=== PATIENT | male | born 1940 | race Caucasian/White ===

== ENCOUNTER 2017-05-02 14:42 | Outpatient (CLI) | payer MEDICARE, MEDICAID, SELFPAY ==
[2017-05-02 14:48] LABS: Microscopic, Urine URINE MICROSCOPIC (MICROSCOPIC)
[2017-05-02 15:06] LABS: Anion Gap 7.7 mEq/L (5-15); Blood Urea Nitrogen 25 mg/dL (7-18); Carbon Dioxide 33 mmol/L (21.0-32.0); Chloride 104 mmol/L (98-107); Creatinine,Serum 1.36 mg/dL (0.70-1.30); Estimated Glomerular Filt Rate 51 ml/min (>60); GFR (African American) 62 ML/MIN (>60); Glucose 144 mg/dL (74-106); Potassium 4.7 mmoL/L (3.5-5.1); Sodium 140 mmol/L (136-145)
[2017-05-02 15:37] LABS: Appearance,Urine CLEAR (Clear); Bilirubin,Urine Negative (Negative); Blood, Urine Negative (Negative); Color,Urine YELLOW (Yellow); Glucose,Urine (UA) Negative (Negative); Ketones,Urine Negative (Negative); Leukocyte Esterase,Urine Negative (Negative); Nitrate,Urine Negative (Negative); Protein,Urine Negative (Negative); Urobilinogen,Urine 0.2 EU/dl (0.2)
[2017-05-02 15:47] LABS: Bacteria,Urine Trace /lpf; RBC,Urine Occasional #/hpf (0-3); WBC,Urine Occasional #/hpf (0-3)
== END 2017-05-02 16:05 | disposition home or self-care (01) ==
LOC: LAB 14:52 → INF 15:34
PROVIDERS: PCP Internal Medicine; Visit Provider Internal Medicine
DX: N18.3 Chronic kidney disease, stage 3 (moderate) (principal); R33.9 Retention of urine, unspecified
CPT/HCPCS: 36415; 80048; 81001; G0463

== ENCOUNTER 2017-05-03 07:21 | Emergency (ER) | payer MEDICARE, MEDICAID, SELFPAY ==
[2017-05-03 07:28] VITALS: BP 156/89; PULSE 88; RESP 18; TEMP 36.8; O2SAT 96; BMI 31.8
--- NOTE | 2017-05-03 07:37 | CT_ITS ---
CT abdomen pelvis wo con COMPARISON: CT scan abdomen pelvis 09/20/2016 HISTORY: Hematuria, difficulty urinating TECHNIQUE: Multiple axial scans obtained from the hemidiaphragms the pelvic floor and were performed without IV or oral contrast. Sagittal and coronal reformats were evaluated as well. FINDINGS: There is minimal atelectasis at the right lung base. There are small bilateral pleural effusions. There is marked gross generalized cardio megaly and there is apparent pacemaker electrode noted. There is mild to moderate ascitic fluid surrounding the right lobe of the liver and the lateral and inferior border of the spleen. There is prominence of the caudate lobe of the liver. The stomach and pancreas appear normal, there has been a previous cholecystectomy. The adrenal glands are normal. The kidneys are lower limits of normal size and show bilateral nonobstructing calculi. There is a small parapelvic cyst right kidney. There is no obstructive uropathy of either kidney. Small bowel appears normal. There is mild diverticulosis of the lower descending colon with prominent diffuse diverticulosis of sigmoid colon. There are a few scattered diverticuli of the ascending colon and there is mild pericolonic fat stranding along the ascending colon. There is a Chavez catheter within the urinary bladder which is decompressed and contains a small amount of air likely from placement of the catheter. The prostate is normal in size. There is focal dilatation of the right common iliac vein and this was noted previously. There is marked arteriosclerotic calcification of the abdominal aorta without aneurysm. IMPRESSION: 1. Gross generalized cardio megaly with small bilateral pleural effusions without obvious pulmonary congestion. 2. Mild to moderate abdominal ascites with a somewhat prominent caudate lobe of the liver and suggest clinical correlation for the possibility of early cirrhosis. 3. Mild pericolonic fat stranding of the ascending colon along with a few scattered diverticuli of the ascending colon and this finding combined with the patient's known diffuse diverticulosis of the sigmoid colon which is redundant and extends to the right side of the abdomen suggest the possibility of early diverticulitis involving the ascending colon and/or a small segment of the sigmoid colon.
--- NOTE | 2017-05-03 07:40 | PC.NURSE ---
irrigated bladder with normal saline till clear. no sign of blood clots.
--- NOTE | 2017-05-03 08:27 | [facility]H.EDUROGM ---
ED Disposition Clinical Impression: Diverticulosis of large intestine, Total bilirubin, elevated Hematuria Qualifiers: Hematuria type: unspecified type Qualified Code(s): R31.9 - Hematuria, unspecified Disposition: Home, Self-Care Condition on Discharge: Good Instructions: How to Care for Your Chavez Catheter -- Male Additional Instructions: Take your Levaquin as already prescribed by Dr. Barrios. Your urine looks clear today, but the radiologist thought you might have the possibility of an early diverticulitis, so this is a good antibiotic to start for that issue. Your CT scan showed fluid around the liver and your liver function tests are abnormal. These issues can be followed up by Dr. Barrios. Please also let him know we sent off a hepatitis panel and he can follow up on those results since it is a send out lab that won't be returned right away. Referrals: Chito Barrios [Primary Care Provider] - - Critical Care Critical Care Time: No Attestation: On , the high probability of a clinically significant, sudden or life threatening deterioration of the following system(s) required my full and direct attention, intervention and personal management. The time I documented below is in addition to time spent performing reported procedures but includes the following listed in this critical care notation. Medical Decision Making Vital Signs: 05/03/17 07:28 Temperature 98.2 F Temperature Source Temporal Artery Scan Pulse Rate [Right Brachial] 88 Respiratory Rate 18 Blood Pressure [Right Arm] 156/89 Blood Pressure Mean [Right Arm] 111 Blood Pressure Source [Right Arm] Automatic Cuff Blood Pressure Position [Right Arm] Sitting 02 Sat by Pulse Oximetry 96 Oxygen Delivery Method Room Air - Lab Data Lab Results 05/03/17 08:34: Urine Color Yellow, Urine Appearance Clear, Urine pH 7.0, Ur Specific [place] 1.010, Urine Protein Negative, Urine Glucose (UA) Negative, Urine Ketones Negative, Urine Blood 3+, Urine Nitrate Negative, Urine Bilirubin Negative, Urine Urobilinogen 0.2, Ur Leukocyte Esterase Negative, Urine RBC 10-20, Hyaline Casts 3-5 05/03/17 09:20: Total Bilirubin 1.2 H, Direct Bilirubin 0.5 H, AST 12 L, ALT 17, Alkaline Phosphatase 93, Total Protein 6.4, Albumin 3.2 L Orders (Tests/Meds): ORDERS Category Date Time Status Hepatitis Panel (4) Routine Lab 05/03/17 09:20 Received - CT Data CT Scan: Abdomen, Pelvis Time Received: 09:[address] Reviewed: Yes: I have reviewed the patient's CT results, I discussed the CT results w/the radiologist Preliminary Findings: Abnormal Findings Narrative: normal prostate; Chavez in place with decompressed bladder; ascites noted; small effusions noted; diverticulosis of sigmoid; possible early diverticulitis. - Anthony Inquiry Pt receiving controlled substance: No Male Urogenital HPI - General Chief complaint: Urogenital-Male Stated complaint: blood in urine Time Seen by Provider: 05/03/17 08:00 Mode of Arrival: Wheelchair Source of Information: Patient, Relative Limitations: No Limitations Description of Symptoms (Recalled from ER Triage Doc. by RN): had a follow placed yesterday for bladder retention due to prostate issues; pt states has. had two episodes overnight of the bsd being full of bright red blood . states he is on a blood thinner and that it didn't bleed after initial placement till the overnight hours; denies trauma - History of Present Illness HPI Narrative: Prior to MD arrival at bedside, bladder was irrigated with cold water by RN and clear urine returned. Patient denies pain, states he has chronic BPH, denies any hematuria prior to Chavez placement, denies any hematemesis, denies BRBPR, denies abdominal pain, tends to stay constipated, had recent urinary retention as delineated above. He has been Rx'd Levaquin after Chavez placement but has not yet filled the Rx. No recent fever or weight loss. Onset (ago): day(s) Duration: now resolved - Rel
--- NOTE | 2017-05-03 08:30 | ED_ITS ---
ED Disposition Clinical Impression: Diverticulosis of large intestine, Total bilirubin, elevated Hematuria Qualifiers: Hematuria type: unspecified type Qualified Code(s): R31.9 - Hematuria, unspecified Disposition: Home, Self-Care Condition on Discharge: Good Instructions: How to Care for Your Chavez Catheter -- Male Additional Instructions: Take your Levaquin as already prescribed by Dr. Barrios. Your urine looks clear today, but the radiologist thought you might have the possibility of an early diverticulitis, so this is a good antibiotic to start for that issue. Your CT scan showed fluid around the liver and your liver function tests are abnormal. These issues can be followed up by Dr. Barrios. Please also let him know we sent off a hepatitis panel and he can follow up on those results since it is a send out lab that won't be returned right away. Referrals: Chito Barrios [Primary Care Provider] - - Critical Care Critical Care Time: No Attestation: On , the high probability of a clinically significant, sudden or life threatening deterioration of the following system(s) required my full and direct attention, intervention and personal management. The time I documented below is in addition to time spent performing reported procedures but includes the following listed in this critical care notation. Medical Decision Making Vital Signs: 05/03/17 07:28 Temperature 98.2 F Temperature Source Temporal Artery Scan Pulse Rate [Right Brachial] 88 Respiratory Rate 18 Blood Pressure [Right Arm] 156/89 Blood Pressure Mean [Right Arm] 111 Blood Pressure Source [Right Arm] Automatic Cuff Blood Pressure Position [Right Arm] Sitting 02 Sat by Pulse Oximetry 96 Oxygen Delivery Method Room Air - Lab Data Lab Results 05/03/17 08:34: Urine Color Yellow, Urine Appearance Clear, Urine pH 7.0, Ur Specific [place] 1.010, Urine Protein Negative, Urine Glucose (UA) Negative, Urine Ketones Negative, Urine Blood 3+, Urine Nitrate Negative, Urine Bilirubin Negative, Urine Urobilinogen 0.2, Ur Leukocyte Esterase Negative, Urine RBC 10- 20, Hyaline Casts 3-5 05/03/17 09:20: Total Bilirubin 1.2 H, Direct Bilirubin 0.5 H, AST 12 L, ALT 17 , Alkaline Phosphatase 93, Total Protein 6.4, Albumin 3.2 L Orders (Tests/Meds): ORDERS Category Date Time Status Hepatitis Panel (4) Routine Lab 05/03/17 09:20 Received - CT Data CT Scan: Abdomen, Pelvis Time Received: 09:[address] Reviewed: Yes: I have reviewed the patient's CT results, I discussed the CT results w/the radiologist Preliminary Findings: Abnormal Findings Narrative: normal prostate; Chavez in place with decompressed bladder; ascites noted; small effusions noted; diverticulosis of sigmoid; possible early diverticulitis. - Anthony Inquiry Pt receiving controlled substance: No Male Urogenital HPI - General Chief complaint: Urogenital-Male Stated complaint: blood in urine Time Seen by Provider: 05/03/17 08:00 Mode of Arrival: Wheelchair Source of Information: Patient, Relative Limitations: No Limitations Description of Symptoms (Recalled from ER Triage Doc. by RN): had a follow placed yesterday for bladder retention due to prostate issues; pt states has. had two episodes overnight of the bsd being full of bright red blood . states he is on a blood thinner and that it didn't bleed after initial placement till the overnight hours; denies trauma - History of Present Ill
[2017-05-03 09:00] LABS: Microscopic,Cath URINE MICROSCOPIC (MICROSCOPIC)
[2017-05-03 09:03] LABS: Appearance,Urine/Cath CLEAR (Clear); Bilirubin,Cath Negative (Negative); Blood, Urine/Cath 3+ (Negative); Color,Urine/Cath YELLOW (Yellow); Glucose,Urine/Cath (UA) Negative (Negative); Ketones,Urine/Cath Negative (Negative); Leukocyte Esterase,Cath Negative (Negative); Nitrate,Cath Negative (Negative); Protein,Urine/Cath Negative (Negative); Urobilinogen,Cath 0.2 EU/dl (0.2)
[2017-05-03 10:03] LABS: Alanine Aminotransferase 17 U/L (12-78); Albumin Level 3.2 gm/dL (3.4-5.0); Alkaline Phosphatase 93 U/L (46-116); Aspartate Amino Transferase 12 U/L (15-37); Bilirubin,Direct 0.5 mg/dL (0.0-0.2); Bilirubin,Total 1.2 mg/dL (0.2-1.0); Total Protein,Serum 6.4 gm/dL (6.4-8.2)
[2017-05-03 10:12] VITALS: BP 110/53; PULSE 70; RESP 20; TEMP 36.3; O2SAT 95
[2017-05-04 17:08] LABS: Hep A Ab, IgM Negative (Negative); Hepatitis B Core Antibody IgM Negative (Negative); Hepatitis B Surface Antigen Negative (Negative)
[2017-05-04 17:16] LABS: Hepatitis C Antibody <0.1 s/co ratio (0.0-0.9)
== END 2017-05-03 10:09 | disposition home or self-care (01) ==
PROVIDERS: Emergency Medicine; Emergency Provider Emergency Medicine; Family Provider Internal Medicine; PCP Internal Medicine
DX: K57.30 Diverticulosis of large intestine without perforation or abscess without bleeding (principal); E11.9 Type 2 diabetes mellitus without complications; Z79.4 Long term (current) use of insulin; R82.2 Biliuria; Z88.8 Allergy status to other drugs, medicaments and biological substances; Z87.891 Personal history of nicotine dependence
CPT/HCPCS: 36415; 74176; 80074; 80076; 81001; 99283

== ENCOUNTER 2017-05-03 16:56 | Emergency (ER) | payer MEDICARE, MEDICAID, SELFPAY ==
[2017-05-03 16:58] VITALS: BP 132/70; PULSE 70; RESP 16; TEMP 36.8; O2SAT 98; BMI 36.9
--- NOTE | 2017-05-03 17:08 | PC.NURSE ---
son at bedside. states none of this started (nausea,weakness,diarrhea) until he took the levaquin by mouth as prescribed by dr falcon. discussed taking zofran prior to med, and follow up for other issues.
--- NOTE | 2017-05-03 17:19 | [facility].EDRECH ---
ED Disposition Clinical Impression: Diverticulosis of large intestine Medication side effect Qualifiers: Encounter type: sequela Qualified Code(s): T88.7XXS - Unspecified adverse effect of drug or medicament, sequela Disposition: Home, Self-Care Condition on Discharge: Good Instructions: DI for Diverticulitis Additional Instructions: Take Levaquin after a meal and after Zofran; try again tomorrow morning and try to rest overnight; see Dr. Barrios for the liver issues in one to two days; keep Chavez in place; Prescriptions: Ondansetron [Zofran 4mg ODT] 4 mg PO TIDP PRN #10 tab.rapdis PRN Reason: nausea Referrals: Chito Barrios [Primary Care Provider] - - Critical Care Critical Care Time: No Attestation: On 05/03/17, the high probability of a clinically significant, sudden or life threatening deterioration of the following system(s) required my full and direct attention, intervention and personal management. The time I documented below is in addition to time spent performing reported procedures but includes the following listed in this critical care notation. Medical Decision Making - Medical Records Medical records reviewed: Yes: I reviewed the patient's medical records. Vital Signs: 05/03/17 16:58 Temperature 98.3 F Temperature Source Oral Pulse Rate [Right Brachial] 70 Respiratory Rate 16 Blood Pressure [Right Arm] 132/70 Blood Pressure Mean [Right Arm] 90 Blood Pressure Source [Right Arm] Automatic Cuff Blood Pressure Position [Right Arm] Supine 02 Sat by Pulse Oximetry 98 Oxygen Delivery Method Room Air - Lab Data Lab results reviewed: Yes: I reviewed the patient's lab results. Orders (Tests/Meds): Patient keeping samanta jelena down, feeling better, I reviewed the abnormalities on the CT scan and need for very close follow up regarding these abnormalities; recommended keeping Chavez in place until PCP can remove it on Friday morning; Rx Zofran, will need to take the Levaquin with food and after taking Zofran, recommend retrying the Levaquin tomorrow. - Anthony Inquiry Pt receiving controlled substance: No Recheck HPI - General Chief Complaint: Weakness Stated Complaint: return to ed after taking atb-weak Time Seen by Provider: 05/03/17 17:15 Mode of Arrival: EMS Limitations: No Limitations Description of Symptoms (Recalled from ER Triage Doc. by RN): pt states took his prescribed levaquin and promptly began having diarrhea and vomiting. states he has vomited approx 6 times; diarrhea at least twice - History of Present Illness HPI narrative: Seen in ER this morning secondary to hematuria following Chavez placement. He was seen by this MD. Is on Eliquis. He underwent CT scan, which showed some ascites and small pleural effusions. He had mild dilatation of the aorta at 3.4 cm. Diverticulosis, with question of possible early diverticulitis of the sigmoid colon. He had a prescription for Levaquin as written by his PCP yesterday, which she filled after being seen in the emergency department and sent home. Son states that the patient took the Levaquin on an empty stomach, and subsequently vomited multiples of times after taking this medication. He had 2 loose stools. Called EMS, who administered Phenergan with relief. He is feeling a little bit weak after vomiting, with generalized weakness without any focal weakness no chest pain no headache. MD complaint: other (recheck s/p taking medication on empty stomach) Associated symptoms: nausea - Related Data Home Medications Medication Instructions Recorded Confirmed Allopurinol [Allopurinol 300mg 0 mg PO DAILY 05/03/17 05/03/17 tablet] Apixaban [Eliquis] 2.5 mg PO DAILY 05/03/17 05/03/17 Atorvastatin Calcium [Lipitor 20mg 0 mg PO DIRECTED 05/03/17 05/03/17 Tablet] Ezetimibe [Zetia] 10 mg PO DAILY 05/03/17 05/03/17 Furosemide [Furosemide 40MG tAB] 40 mg PO DAILY 05/03/17 05/03/17 Gabapentin [Neurontin 300mg 300 mg PO DIRECTED
--- NOTE | 2017-05-03 17:23 | ED_ITS ---
ED Disposition Clinical Impression: Diverticulosis of large intestine Medication side effect Qualifiers: Encounter type: sequela Qualified Code(s): T88.7XXS - Unspecified adverse effect of drug or medicament, sequela Disposition: Home, Self-Care Condition on Discharge: Good Instructions: DI for Diverticulitis Additional Instructions: Take Levaquin after a meal and after Zofran; try again tomorrow morning and try to rest overnight; see Dr. Barrios for the liver issues in one to two days; keep Chavez in place; Prescriptions: Ondansetron [Zofran 4mg ODT] 4 mg PO TIDP PRN #10 tab.rapdis PRN Reason: nausea Referrals: Chito Barrios [Primary Care Provider] - - Critical Care Critical Care Time: No Attestation: On 05/03/17, the high probability of a clinically significant, sudden or life threatening deterioration of the following system(s) required my full and direct attention, intervention and personal management. The time I documented below is in addition to time spent performing reported procedures but includes the following listed in this critical care notation. Medical Decision Making - Medical Records Medical records reviewed: Yes: I reviewed the patient's medical records. Vital Signs: 05/03/17 16:58 Temperature 98.3 F Temperature Source Oral Pulse Rate [Right Brachial] 70 Respiratory Rate 16 Blood Pressure [Right Arm] 132/70 Blood Pressure Mean [Right Arm] 90 Blood Pressure Source [Right Arm] Automatic Cuff Blood Pressure Position [Right Arm] Supine 02 Sat by Pulse Oximetry 98 Oxygen Delivery Method Room Air - Lab Data Lab results reviewed: Yes: I reviewed the patient's lab results. Orders (Tests/Meds): Patient keeping samanta jelena down, feeling better, I reviewed the abnormalities on the CT scan and need for very close follow up regarding these abnormalities; recommended keeping Chavez in place until PCP can remove it on Friday morning; Rx Zofran, will need to take the Levaquin with food and after taking Zofran, recommend retrying the Levaquin tomorrow. - Anthony Inquiry Pt receiving controlled substance: No Recheck HPI - General Chief Complaint: Weakness Stated Complaint: return to ed after taking atb-weak Time Seen by Provider: 05/03/17 17:15 Mode of Arrival: EMS Limitations: No Limitations Description of Symptoms (Recalled from ER Triage Doc. by RN): pt states took his prescribed levaquin and promptly began having diarrhea and vomiting. states he has vomited approx 6 times; diarrhea at least twice - History of Present Illness HPI narrative: Seen in ER this morning secondary to hematuria following Chavez placement. He was seen by this MD. Is on Eliquis. He underwent CT scan, which showed some ascites and small pleural effusions. He had mild dilatation of the aorta at 3.4 cm. Diverticulosis, with question of possible early diverticulitis of the sigmoid colon. He had a prescription for Levaquin as written by his PCP yesterday, which she filled after being seen in the emergency department and sent home. Son states that the patient took the Levaquin on an empty stomach, and subsequently vomited multiples of times after taking this medication. He had 2 loose stools. Called EMS, who administered Phenergan with relief. He is feeling a little bit weak after vomiting, with generalized weakness without any focal weakness no chest pain no headache. MD complaint: other (recheck s/p taking medication on empty stomach) Associated symptoms: nausea
[2017-05-03 18:26] VITALS: BP 125/80; PULSE 85; RESP 18; TEMP 36.8
== END 2017-05-03 18:26 | disposition home or self-care (01) ==
PROVIDERS: Emergency Provider Emergency Medicine; Family Provider Internal Medicine; PCP Internal Medicine
DX: K57.30 Diverticulosis of large intestine without perforation or abscess without bleeding (principal); T37.8X5A Adverse effect of other specified systemic anti-infectives and antiparasitics, initial encounter; Y92.009 Unspecified place in unspecified non-institutional (private) residence as the place of occurrence of the external cause; E10.65 Type 1 diabetes mellitus with hyperglycemia; Z79.4 Long term (current) use of insulin; Z79.899 Other long term (current) drug therapy; Z88.8 Allergy status to other drugs, medicaments and biological substances
CPT/HCPCS: 36415; 74176; 80074; 80076; 81001; 99281; 99283

== ENCOUNTER 2017-05-06 14:16 | Observation (INO) | payer MEDICARE, MEDICAID, SELFPAY ==
[2017-05-06] VITALS (7 sets, daily range): BP systolic 122–140; BP diastolic 52–76; PULSE 73–100; RESP 20–22; TEMP 36.7–37.9; O2SAT 96–98; BMI 36.9; BMI 35.2
--- NOTE | 2017-05-06 14:31 | XR_ITS ---
XR chest AP HISTORY: ITS.REASON: WEAKNESS ORDERING PHYSICIAN: Rob Figueredo MD PATIENT AGE: 76 years COMPARISON: 08/14/2016 FINDINGS: There is cardiomegaly without CHF. Study is underpenetrated. Increased density is present in the lung bases likely due to soft tissue attenuation. Cannot exclude small right-sided effusion. Cardiac pacemaker device is present.. No lobar consolidation or collapse. Has been a prior CABG. IMPRESSION: Cardiomegaly, prior CABG, small right effusion
--- NOTE | 2017-05-06 14:35 | [facility]H.EDWEAK ---
ED Disposition Clinical Impression: CHF (congestive heart failure), Hyponatremia, UTI (urinary tract infection) Disposition: Still a Patient Condition on Discharge: Fair Referrals: Chito Barrios [Primary Care Provider] - - Critical Care Critical Care Time: No Attestation: On , the high probability of a clinically significant, sudden or life threatening deterioration of the following system(s) required my full and direct attention, intervention and personal management. The time I documented below is in addition to time spent performing reported procedures but includes the following listed in this critical care notation. Medical Decision Making - Medical Records Medical records reviewed: Yes: I reviewed the patient's medical records. Vital Signs: 05/06/17 14:20 Temperature 98.1 F Temperature Source Oral Pulse Rate [Right Radial] 75 Respiratory Rate 20 Blood Pressure [Right Arm] 122/52 Blood Pressure Mean [Right Arm] 75 Blood Pressure Position [Right Arm] Sitting 02 Sat by Pulse Oximetry 98 - Lab Data Lab Results 05/06/17 14:40: Urine Color Red, Urine Appearance Cloudy, Urine pH 5.0, Ur Specific [place] 1.015, Urine Protein 2+, Urine Glucose (UA) Negative, Urine Ketones Negative, Urine Blood 3+, Urine Nitrate Positive, Urine Bilirubin 2+ A, Urine Urobilinogen 1.0, Ur Leukocyte Esterase 2+ A, Urine RBC Tntc, Urine WBC None, Ur Squamous Epith Cells Occasional, Urine Bacteria Trace 05/06/17 14:40: WBC 11.6 H, RBC 4.30 L, Hgb 13.0 L, Hct 40.5 L, MCV 94.2 H, MCH 30.2, MCHC 32.0, RDW 17.0, Plt Count 134 L, MPV 8.1, Neut % (Auto) 74.7, Lymph % (Auto) 15.9, [place] % (Auto) 7.7, Eos % (Auto) 1.3, Baso % (Auto) 0.4, Neut # (Auto) 8.7 H, Lymph # (Auto) 1.9, [place] # (Auto) 0.9, Eos # (Auto) 0.2, Baso # (Auto) 0.1 05/06/17 14:40: Sodium 126 L, Potassium 4.1, Chloride 95 L, Carbon Dioxide 28, Anion Gap 7.1, BUN 24 H, Creatinine 1.57 H, Estimated Creat Clear 57, Estimated GFR 43 L, Est GFR ( Amer) 52 L, Glucose 205 H, Uric Acid 7.5 H, Calcium 8.6, Total Bilirubin 1.9 H, AST 15, ALT 17, Alkaline Phosphatase 97, Total Creatine Kinase 143, CK-MB (CK-2) < 0.5, CK-MB (CK-2) Rel Index 0.3, Troponin I < 0.02, Total Protein 6.7, Albumin 3.1 L, Globulin 3.6 H, Albumin/Globulin Ratio 0.9 L 05/06/17 14:40: Lactic Acid 2.1 H 05/06/17 14:40: Influenza Type A Ag Negative, Influenza Type B Ag Negative 05/06/17 14:40: B-Natriuretic Peptide 540 H Result diagrams: 05/06/17 14:40 05/06/17 14:40 Orders (Tests/Meds): ORDERS Category Date Time Status MAG [Magnesium] Stat Lab 05/06/17 14:40 Received Blood Culture Stat Micro 05/06/17 14:40 Received Urine Culture Stat Micro 05/06/17 14:40 Received - Radiology Data #1 Image(s): Chest Image Reviewed: Yes I reviewed the patient's radiology image Preliminary Findings: Abnormal (cardiomegally with PVC. ) - CT Data CT Scan: Abdomen, Pelvis Time Received: 16:32 - ECG Data Tracing #1 Atrial fibrillation's are controlled rate 84/min artifact nonspecific ST and T-wave changes cannot exclude lateral ischemia on this EKG. ECG initial impression date: 05/06/17 ECG initial impression time: 16:12 - Anthony Inquiry Pt receiving controlled substance: No Anthony was queried for this patient: No Medical Decision Making Narrative: After reviewing the labs and CT results with Dr. Gonzales I reexamined the patient he had no acute abdominal finding. He continued to insist being weak short of breath and lacking appetite. I called Dr. Leon who is covering for Dr. Enamorado who was covering for Dr. Barrios. Agreed to admit the patient for gentle rehydration and attempt to raise his sodium and start him on IV antibiotics because of his urinary tract infection that may be causing him anorexia. He will need to get an echo to evaluate him for CHF. Weakness HPI - General Chief complaint: Weakness Stated complaint: weak, hasn't eaten 4 days,leg pain Mode of Arrival: Wheelchair Limitatio
--- NOTE | 2017-05-06 14:38 | ED_ITS ---
ED Disposition Clinical Impression: CHF (congestive heart failure), Hyponatremia, UTI (urinary tract infection) Disposition: Still a Patient Condition on Discharge: Fair Referrals: Chito Barrios [Primary Care Provider] - - Critical Care Critical Care Time: No Attestation: On , the high probability of a clinically significant, sudden or life threatening deterioration of the following system(s) required my full and direct attention, intervention and personal management. The time I documented below is in addition to time spent performing reported procedures but includes the following listed in this critical care notation. Medical Decision Making - Medical Records Medical records reviewed: Yes: I reviewed the patient's medical records. Vital Signs: 05/06/17 14:20 Temperature 98.1 F Temperature Source Oral Pulse Rate [Right Radial] 75 Respiratory Rate 20 Blood Pressure [Right Arm] 122/52 Blood Pressure Mean [Right Arm] 75 Blood Pressure Position [Right Arm] Sitting 02 Sat by Pulse Oximetry 98 - Lab Data Lab Results 05/06/17 14:40: Urine Color Red, Urine Appearance Cloudy, Urine pH 5.0, Ur Specific [place] 1.015, Urine Protein 2+, Urine Glucose (UA) Negative, Urine Ketones Negative, Urine Blood 3+, Urine Nitrate Positive, Urine Bilirubin 2+ A, Urine Urobilinogen 1.0, Ur Leukocyte Esterase 2+ A, Urine RBC Tntc, Urine WBC None, Ur Squamous Epith Cells Occasional, Urine Bacteria Trace 05/06/17 14:40: WBC 11.6 H, RBC 4.30 L, Hgb 13.0 L, Hct 40.5 L, MCV 94.2 H, MCH 30.2, MCHC 32.0, RDW 17.0, Plt Count 134 L, MPV 8.1, Neut % (Auto) 74.7, Lymph % (Auto) 15.9, Washburn % (Auto) 7.7, Eos % (Auto) 1.3, Baso % (Auto) 0.4, Neut # ( Auto) 8.7 H, Lymph # (Auto) 1.9, Washburn # (Auto) 0.9, Eos # (Auto) 0.2, Baso # ( Auto) 0.1 05/06/17 14:40: Sodium 126 L, Potassium 4.1, Chloride 95 L, Carbon Dioxide 28, Anion Gap 7.1, BUN 24 H, Creatinine 1.57 H, Estimated Creat Clear 57, Estimated GFR 43 L, Est GFR ( Amer) 52 L, Glucose 205 H, Uric Acid 7.5 H, Calcium 8.6, Total Bilirubin 1.9 H, AST 15, ALT 17, Alkaline Phosphatase 97, Total Creatine Kinase 143, CK-MB (CK-2) < 0.5, CK-MB (CK-2) Rel Index 0.3, Troponin I < 0.02, Total Protein 6.7, Albumin 3.1 L, Globulin 3.6 H, Albumin/Globulin Ratio 0.9 L 05/06/17 14:40: Lactic Acid 2.1 H 05/06/17 14:40: Influenza Type A Ag Negative, Influenza Type B Ag Negative 05/06/17 14:40: B-Natriuretic Peptide 540 H Result diagrams: 05/06/17 14:40 05/06/17 14:40 Orders (Tests/Meds): ORDERS Category Date Time Status MAG [Magnesium] Stat Lab 05/06/17 14:40 Received Blood Culture Stat Micro 05/06/17 14:40 Received Urine Culture Stat Micro 05/06/17 14:40 Received - Radiology Data #1 Image(s): Chest Image Reviewed: Yes I reviewed the patient's radiology image Preliminary Findings: Abnormal (cardiomegally with PVC. ) - CT Data CT Scan: Abdomen, Pelvis Time Received: 16:32 - ECG Data Tracing #1 Atrial fibrillation's are controlled rate 84/min artifact nonspecific ST and T- wave changes cannot exclude lateral ischemia on this EKG. ECG initial impression date: 05/06/17 ECG initial impression time: 16:12 - Anthony Inquiry Pt receiving controlled substance: No Anthony was queried for this patient: No Medical Decision Making Narrative: After reviewing the labs and CT results with Dr. Gonzales I reexamined the patient he had no acute abdominal finding. He continued to insist b
--- NOTE | 2017-05-06 14:59 | CT_ITS ---
CT abdomen pelvis wo con CLINICAL INDICATION: ITS.REASON: ABD PAIN, NAUSEA/VOMITING ORDERING PHYSICIAN: Rob Figueredo MD PATIENT AGE: 76 years COMPARISON: 05/03/2017 TECHNIQUE: Axial images obtained with sagittal and coronal reformats. PROCEDURE: Oral Contrast: None IV Contrast: None . FINDINGS: There is a small right pleural effusion. Right hemidiaphragm is elevated with atelectatic changes present in the lung bases. There is cardiomegaly with coronary artery calcification. Liver somewhat small with somewhat irregular margins and prominent caudate lobe consistent with cirrhosis. There is mild amount of perihepatic fluid slightly increased compared to the previous exam. Small amount fluid is present and perisplenic region. No intestinal obstruction or free air. The spleen and adrenal glands are unremarkable. There is pancreatic atrophy. Prior cholecystectomy. No ductal dilatation No intestinal obstruction or free air. There is barnes colonic diverticulosis. No convincing evidence of diverticulitis. There are nonobstructing bilateral renal calculi measuring up to 4 mm in the lower pole on the right and 4 mm in the lower pole on the left. Bilateral renal cysts are present. No structural renal or ureteral calculi. Gas is present in the urinary bladder and could be due to recent catheterization. A Chavez catheter was present on 05/03/2017. Incidental note is made of moderate dilatation of the right external iliac vein similar to the previous exam measuring up to 3.6 cm in transverse dimension No acute bony anomalies. IMPRESSION: 1. Cirrhosis with ascites and small right pleural effusion. 2. Barnes- colonic diverticulosis. No evidence of diverticulitis or intestinal obstruction 3. Bilateral nephrolithiasis
[2017-05-06 15:00] LABS: Microscopic, Urine URINE MICROSCOPIC (MICROSCOPIC)
[2017-05-06 15:04] LABS: Basophils # 0.1 K/mm3 (0-0.2); Basophils % 0.4 % (0.1-2.0); Eosinophils # 0.2 K/mm3 (0.0-0.4); Eosinophils % 1.3 % (0.1-12.0); Hematocrit 40.5 % (42.0-52.0); Lymphocytes # 1.9 K/mm3 (0.7-4.5); Lymphocytes % 15.9 K/mm3 (10-50); Mean Corpuscular Hemoglobin 30.2 pg (27.0-31.2); Mean Corpuscular Volume 94.2 fl (80-94); Mean Platelet Volume 8.1 fl (7.4-10.4); Monocytes # 0.9 K/mm3 (0.1-1.0); Monocytes % 7.7 % (1.7-9.3); Neutrophils # 8.7 K/mm3 (1.8-7.8); Neutrophils % 74.7 % (37.0-80.0); Platelet Count 134 K/mm3 (142-424); White Blood Count 11.6 K/mm3 (4.8-10.8)
[2017-05-06 15:18] LABS: Appearance,Urine CLOUDY (Clear); Blood, Urine 3+ (Negative); Color,Urine RED (Yellow); Glucose,Urine (UA) Negative (Negative); Ketones,Urine Negative (Negative); Leukocyte Esterase,Urine 2+ (Negative); Nitrate,Urine POSITIVE (Negative); Protein,Urine 2+ (Negative); Specific Gravity, Urine 1.015 (1.005-1.030)
[2017-05-06 15:20] LABS: Bilirubin,Urine 2+ (Negative)
[2017-05-06 15:39] LABS: Lactic Acid 2.1 mmol/L (0.4-2.0)
[2017-05-06 15:41] LABS: Bacteria,Urine Trace /lpf; RBC,Urine TNTC #/hpf (0-3); Squamous Epithelial Cell,Urine Occasional #/hpf (0-5)
[2017-05-06 15:45] LABS: Alanine Aminotransferase 17 U/L (12-78); Albumin Level 3.1 gm/dL (3.4-5.0); Albumin/Globulin Ratio 0.9 (1.1-1.8); Alkaline Phosphatase 97 U/L (46-116); Anion Gap 7.1 mEq/L (5-15); Aspartate Amino Transferase 15 U/L (15-37); Bilirubin,Total 1.9 mg/dL (0.2-1.0); Blood Urea Nitrogen 24 mg/dL (7-18); Calcium 8.6 mg/dL (8.5-10.1); Carbon Dioxide 28 mmol/L (21.0-32.0); Chloride 95 mmol/L (98-107); Creatine Kinase 143 U/L (39-308); Creatinine Clearance Estimated 57 mL/min (0-300); Creatinine,Serum 1.57 mg/dL (0.70-1.30); Estimated Glomerular Filt Rate 43 ml/min (>60); GFR (African American) 52 ML/MIN (>60); Globulin 3.6 gm/dl (1.3-3.2); Glucose 205 mg/dL (74-106); Potassium 4.1 mmoL/L (3.5-5.1); Sodium 126 mmol/L (136-145); Total Protein,Serum 6.7 gm/dL (6.4-8.2); Troponin I < 0.02 ng/ml (0.00-0.06); Uric Acid 7.5 mg/dL (2.6-7.2)
[2017-05-06 15:47] LABS: CKMB Relative Index 0.3 U/L (0-4.0); Creatine Kinase MB < 0.5 mg/ml (0.0-3.6)
[2017-05-06 17:41] LABS: Troponin I < 0.02 ng/ml (0.00-0.06)
[2017-05-06 18:56] LABS: Reflex Lactic Add Lactic Reflex
[2017-05-06 19:24] LABS: Lactic Acid Follow Up (RFLX 1) 1.1 (0.4-2.0)
--- NOTE | 2017-05-06 19:49 | PC.NURSE ---
NURSE NOTIFIED OF TEMP
[2017-05-06 23:21] LABS: Troponin I < 0.02 ng/ml (0.00-0.06)
--- NOTE | 2017-05-06 23:49 | PC.NURSE ---
nurse notified of pts temp
[2017-05-07] VITALS (11 sets, daily range): BP systolic 111–129; BP diastolic 51–68; PULSE 79–90; RESP 16–20; TEMP 36.7–37.2; O2SAT 94–100; BMI 35.0
--- NOTE | 2017-05-07 04:02 | PC.NURSE ---
Addendum entered by Jessie Marquez RN 05/07/17 05:00: Pt wears 2L NC at night time. Original Note: Pt has rested well this shift with only complaints of discomfort in his right knee r/t gout. Pt lung sounds clear t/o auscultation. BS active in all 4 qauds, pt c/o mild tenderness in RU and RL qauds during palpation. A&Ox3. A-fib with occasional PVC noted on quality assurance assessor. VSS. No acute distress noted, will continue to monitor.
[2017-05-07 06:54] LABS: Basophils # 0.1 K/mm3 (0-0.2); Basophils % 0.6 % (0.1-2.0); Eosinophils # 0.3 K/mm3 (0.0-0.4); Eosinophils % 2.6 % (0.1-12.0); Hematocrit 38.6 % (42.0-52.0); Hemoglobin 12.4 g/dL (14.1-18.0); Lymphocytes # 1.6 K/mm3 (0.7-4.5); Lymphocytes % 15.4 K/mm3 (10-50); Mean Corpuscular HGB Conc 32.2 g/dL (31.8-35.4); Mean Corpuscular Hemoglobin 30.2 pg (27.0-31.2); Mean Corpuscular Volume 93.9 fl (80-94); Mean Platelet Volume 8.3 fl (7.4-10.4); Monocytes % 9.5 % (1.7-9.3); Neutrophils # 7.4 K/mm3 (1.8-7.8); Neutrophils % 71.9 % (37.0-80.0); Platelet Count 107 K/mm3 (142-424); Red Blood Count 4.11 M/mm3 (4.60-6.20); Red Cell Distribution Width 16.9 % (11.5-17.5); White Blood Count 10.3 K/mm3 (4.8-10.8)
--- NOTE | 2017-05-07 07:05 | PC.NURSE ---
REPORT GIVEN TO Fernando COCHRAN
[2017-05-07 07:06] LABS: Anion Gap 10.5 mEq/L (5-15); Blood Urea Nitrogen 23 mg/dL (7-18); Carbon Dioxide 29 mmol/L (21.0-32.0); Chloride 98 mmol/L (98-107); Creatinine Clearance Estimated 58 mL/min (0-300); Creatinine,Serum 1.46 mg/dL (0.70-1.30); Estimated Glomerular Filt Rate 47 ml/min (>60); GFR (African American) 57 ML/MIN (>60); Glucose 160 mg/dL (74-106); Magnesium 1.6 mg/dL (1.4-2.2); Potassium 3.5 mmoL/L (3.5-5.1); Sodium 134 mmol/L (136-145)
--- NOTE | 2017-05-07 07:25 | CA_ITS ---
PROCEDURE: 2-D M-mode and color Doppler study INDICATIONS FOR THE TEST: Chest pain+ COPD+ Heart Murmur Tobacco Smokingex Palpitations+ Fatigue+ Syncope Edema Hypertension+Diabetes Mellitus+ Rheumatic Fever SOB+TINOCO Obesity Hyperlipidemia+ Family History HD Additional History SOA, CHF PATIENT INFORMATION HEIGHT: 65 WEIGHT: 210 GENDER: Male B/P: 111/51 2-D/M-MODE INTERPRETATION: 2-D MEASUREMENTS OBSERVED VALUES IN CMS Right Ventricular Dimension (RVDd) 2.0 Interventricular Septum (Thickness)(IVsd) 1.2 Left Ventricular Internal Dimensions(LVIDd) 5.6 Left Ventricular Posterior Wall (Thickness)(LVPWd) 1.0 Aortic Root 2.6 Aortic Cusp Separation 2.0 Left Atrial Dimensions (LAD) 5.2 2D 1. Technically difficult study because of the patient's factor and poor acoustic windows, Definity contrast was utilized to delineate endocardial surfaces 2. The left atrium is moderately enlarged, left ventricle is mildly dilated, there is severely reduced left ventricular systolic function, visually estimated ejection fraction approximately 20%, left ventricle is globally hypokinetic. 3. The right atrium is moderately enlarged right ventricle is moderately dilated with mildly reduced contractility, there is catheter noted in the right atrium and right ventricle which is likely a pacemaker on an AICD lead. 4. The aortic valve is minimally thickened and fibrosed. 5. The mitral and tricuspid valve leaflets are minimally thickened. 6. The pulmonic valve is poorly visualized. 7. No significant pericardial effusion noted. DOPPLER INTERROGATION: Doppler interrogation of the aortic, mitral and tricuspid valvular presence of mild aortic, moderate mitral and tricuspid regurgitation, calculated right ventricular systolic pressure is 52 mmHg consistent with moderate pulmonary hypertension. CONCLUSION: 1. Biatrial enlargement, dilated left ventricle, severely reduced left ventricular systolic function, visually estimated ejection fraction 20%, left ventricle is globally hypokinetic. Doppler evidence of raised left ventricular end-diastolic pressure is also seen. 2. Moderately enlarged right ventricle with mild reduced contractility. 3. Mild aortic, moderate mitral and tricuspid regurgitation, calculated right ventricular systolic pressure is 52 mmHg consistent with moderate pulmonary hypertension. 4. No significant pericardial effusion noted.
--- NOTE | 2017-05-07 07:27 | PC.NURSE ---
REPORT GIVEN TO Enoch PETERSON W/C
--- NOTE | 2017-05-07 07:35 | HMH.PHAVTE ---
[facility] Pharmacy VTE Monitoring - Patient Demographics Admission date: 05/06/17 Report Date: 05/07/17 Time: 07:36 Allergies/Adverse Reactions: Patient Allergies labetalol [LABETALOL] Allergy (Unknown, Verified 05/03/17 07:42) MAKES ME PAREDES Height: 1.65 m Weight: 95.339 kg Patient Problems: Current Active Problems CHF (congestive heart failure) (Acute) Hyponatremia (Acute) UTI (urinary tract infection) (Acute) - VTE Risk Labs: VTE Related Lab Results Hgb 12.4 g/dL (14.1-18.0) L 05/07/17 06:10 Hct 38.6 % (42.0-52.0) L 05/07/17 06:10 Plt Count 107 K/mm3 (142-424) L 05/07/17 06:10 BUN 23 mg/dL (7-18) H 05/07/17 06:10 Creatinine 1.46 mg/dL (0.70-1.30) H 05/07/17 06:10 Estimated Creat Clear 58 mL/min (0-300) 05/07/17 06:10 Was VTE Risk Assessment Performed: Yes VTE Score: 4 VTE Risk Level: Low Risk Clinical Trial Participant: No - Prophylaxis VTE Prophylaxis Ordered?: Yes Types of VTE Prophylaxis: TEDS Knee High
--- NOTE | 2017-05-07 08:44 | HMH.HP ---
*Admission Date: 05/06/17 *Chief complaint: Weakness and fatigue *History of present illness: 76-year-old white male with known coronary disease, pacemaker implantation, CABG in 1995 and ongoing congestive heart failure who presented to the emergency department after leaving urology clinic yesterday after Chavze catheter was discontinued from recent episode of bladder outlet obstruction. In the emergency department he was found to be weak, had evidence of CHF exacerbation and have hyponatremia. He was admitted to hospital for IV diuresis. Cautious sodium replacement therapy. This morning he feels better, his only complaint today is right knee acute gouty arthritis. Patient's regular cardiology group visit [facility], follows with EP, Dr. Fuentes, his regular web site administrator is Dr. hCito Barrios. 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), Internal Pacemaker Denies:: Cancer, Diabetes Mellitus Type 1 (lantus daily), MRSA Other Medical History: Reports: Arthritis (Gouty arthritis) Other Surgeries: Yes: Pacemaker Amputation: No Fractures: No - *Social History Smoking Status: Former smoker Alcohol Intake: never - Psychiatric History Expresses thoughts of harming self/others: None Suicide Plan Description: No Plan Review of Systems - Review of Systems Review of systems:: unable to obtain, other, pertinent systems reviewed and negative unless documented below - Constitutional Denies body ache(s), Denies chills, Denies daytime sleepiness - Eyes Denies blurry vision, Denies change in vision - ENT Denies abnormal hearing - *Cardiovascular Reports shortness of breath, Reports shortness of breath with activity, Reports leg swelling, Denies chest pain, Denies chest pain at rest, Denies chest pain with activity, Denies irregular heart rhythm - *Respiratory Denies change in phlegm color, Denies chest congestion - *Gastrointestinal Denies abdominal pain - *Genitourinary Reports difficulty urinating Comments: Follows with urology, Dr. Shipman - *Musculoskeletal Reports joint pain Comments: Right knee redness and heat and swelling Meds Home Medications Medication Instructions Recorded Confirmed Type Apixaban [Eliquis] 2.5 mg PO BID 05/03/17 05/07/17 History Atorvastatin Calcium [Lipitor 20mg 20 mg PO HS 05/03/17 05/06/17 History Tablet] Ezetimibe [Zetia] 10 mg PO DAILY 05/03/17 05/06/17 History Furosemide [Furosemide 40MG tAB] 40 mg PO BID 05/03/17 05/07/17 History Gabapentin [Neurontin 300mg 300 mg PO HS 05/03/17 05/07/17 History capsule] Insulin Glargine,Hum.rec.anlog 55 unit SQ HS 05/03/17 05/06/17 History [Lantus Insulin 100units/mL 10mL vial] Isosorbide Mononitrate [Imdur 60mg 120 mg PO DAILY 05/03/17 05/06/17 History ER tablet] Omeprazole [Omeprazole 20mg 20 mg PO DAILY 05/03/17 05/06/17 History Capsule] Potassium Chloride [Klor-Con 10mEq 10 meq PO DAILY 05/03/17 05/06/17 History tab] Ramipril 1.25 mg PO DAILY 05/03/17 05/06/17 History Sotalol HCl [Sotalol] 120 mg PO DAILY 05/03/17 05/06/17 History Tamsulosin HCl [Flomax 0.4mg 0.4 mg PO BID 05/03/17 05/06/17 History capsule] dilTIAZem HCl [Diltiazem 240mg 240 mg PO DAILY 05/03/17 05/06/17 History 24Hr ER Cap] Allopurinol [Allopurinol 100mg 200 mg PO DAILY 05/06/17 05/07/17 History tablet] Allergies Allergy/AdvReac Type Severity Reaction Status Date / Time labetalol [LABETALOL] Allergy Unknown MAKES ME Verified 05/03/17 07:42 CRAZY Exam Vital signs and Labs for Last 24 Hours: Temp Pulse Resp BP Pulse Ox 98.2 F 90 20 111/51 95 05/07/17 07:39 05/07/17 07:39 05/07/17 07:39 05/07/17 07:39 05/07/17 08:00 Laboratory Results - last 24 hr 05/06/17 19:00: Lactic Acid Fup @ 4Hr 1.1 05/06/17 22:50: Troponin I < 0.02 05/07/17 06:10: WBC 10.3, RBC 4.11 L, Hgb 12.4 L, Hct 38.6 L, MCV 93
--- NOTE | 2017-05-07 08:47 | P.HP_ITS ---
*Admission Date: 05/06/17 *Chief complaint: Weakness and fatigue *History of present illness: 76-year-old white male with known coronary disease, pacemaker implantation, CABG in 1995 and ongoing congestive heart failure who presented to the emergency department after leaving urology clinic yesterday after Chavez catheter was discontinued from recent episode of bladder outlet obstruction. In the emergency department he was found to be weak, had evidence of CHF exacerbation and have hyponatremia. He was admitted to hospital for IV diuresis. Cautious sodium replacement therapy. This morning he feels better, his only complaint today is right knee acute gouty arthritis. Patient's regular cardiology group visit [facility], follows with EP, Dr. Fuentes, his regular police booking officer is Dr. Chito Barrios. [facility] History Medical History: Reports:: Congestive Heart Failure, Diabetes Mellitus Type 2 ( Insulin requiring type 2 diabetes), Internal Pacemaker Denies:: Cancer, Diabetes Mellitus Type 1 (lantus daily), MRSA Other Medical History: Reports: Arthritis (Gouty arthritis) Other Surgeries: Yes: Pacemaker Amputation: No Fractures: No - *Social History Smoking Status: Former smoker Alcohol Intake: never - Psychiatric History Expresses thoughts of harming self/others: None Suicide Plan Description: No Plan Review of Systems - Review of Systems Review of systems:: unable to obtain, other, pertinent systems reviewed and negative unless documented below - Constitutional Denies body ache(s), Denies chills, Denies daytime sleepiness - Eyes Denies blurry vision, Denies change in vision - ENT Denies abnormal hearing - *Cardiovascular Reports shortness of breath, Reports shortness of breath with activity, Reports leg swelling, Denies chest pain, Denies chest pain at rest, Denies chest pain with activity, Denies irregular heart rhythm - *Respiratory Denies change in phlegm color, Denies chest congestion - *Gastrointestinal Denies abdominal pain - *Genitourinary Reports difficulty urinating Comments: Follows with urology, Dr. Shipman - *Musculoskeletal Reports joint pain Comments: Right knee redness and heat and swelling Meds Home Medications Medication Instructions Recorded Confirmed Type Apixaban [Eliquis] 2.5 mg PO BID 05/03/17 05/07/17 History Atorvastatin Calcium [Lipitor 20mg 20 mg PO HS 05/03/17 05/06/17 History Tablet] Ezetimibe [Zetia] 10 mg PO DAILY 05/03/17 05/06/17 History Furosemide [Furosemide 40MG tAB] 40 mg PO BID 05/03/17 05/07/17 History Gabapentin [Neurontin 300mg 300 mg PO HS 05/03/17 05/07/17 History capsule] Insulin Glargine,Hum.rec.anlog 55 unit SQ HS 05/03/17 05/06/17 History [Lantus Insulin 100units/mL 10mL vial] Isosorbide Mononitrate [Imdur 60mg 120 mg PO DAILY 05/03/17 05/06/17 History ER tablet] Omeprazole [Omeprazole 20mg 20 mg PO DAILY 05/03/17 05/06/17 History Capsule] Potassium Chloride [Klor-Con 10mEq 10 meq PO DAILY 05/03/17 05/06/17 History tab] Ramipril 1.25 mg PO DAILY 05/03/17 05/06/17 History Sotalol HCl [Sotalol] 120 mg PO DAILY 05/03/17 05/06/17 History Tamsulosin HCl [Flomax 0.4mg 0.4 mg PO BID 05/03/17 05/06/17 History capsule] dilTIAZem HCl [Diltiazem 240mg 240 mg PO DAILY 05/03/17 05/06/17 History 24Hr ER Cap] Allopurinol [Allopurinol 100mg 200 mg PO DAILY 05/06/17 05/07/17 Hist
--- NOTE | 2017-05-07 16:39 | PC.NURSE ---
MR. POE IS A 76 YEAR OLD WHITE MALE THAT PRESENTED TO THE HOSPITAL ON 05/06/17 WITH A DIAGNOSIS OF CHR, HYPONATREMIA, AND UTI. HE HAS DONE WELL TODAY, AND CONTINUES TO COMPLAIN OF GOUTY ARTHRITIS IN HIS RIGHT KNEE. HE STATES HE HAS A HISTORY OF GOUT FOR MANY YEARS AND TAKES MEDICATION. HE HAS A PACEMAKER AND FOLLOWS WITH HIS HAZARDOUS SUBSTANCES SCIENTIST IN [place]. HE HAS A DIAGNOSIS OF IDDM AND REQUIRED 2 UNITS OF INSULIN AT 1700. HE DENIES ACUTE CHANGES TODAY AND HAS BEEN MOVED TO ROOM 211 AND TOLERATED THE MOVE WELL. HE IS RESTING QUIETLY AT THIS TIME. WILL CONTINUE TO MONITOR. ISRAEL CARMONA, MSN, RN
--- NOTE | 2017-05-07 17:05 | PC.NURSE ---
ANDREW FARIAS, [facility] CALLED STATES WHEN MR. POE'S SON BRINGS HIS ELIQUIS TO GO AHEAD AND GIVEN TO HIM TONIGHT AND WILL START SCHEDULED TIMES TOMORROW. I PASSED THIS ON TO BILL GATES RN IN REPORT. ISRAEL CARMONA, MSN, RN
[2017-05-08] VITALS (7 sets, daily range): BP systolic 102–112; BP diastolic 53–60; PULSE 78–82; RESP 18–20; TEMP 36.1–36.9; O2SAT 92–98
--- NOTE | 2017-05-08 03:43 | PC.NURSE ---
no changes noted from previous assessment, pt has rested well this shift, c/o minor pain in the knee related to gout, pt was on room air during waking periods and is now on 2L NC and maintaining O2 sats at or above 90, Expiratory wheezing noted to auscultation, cough present producing thick white sputum, bowel sounds are active, vss, remote sensing research scientist in place reading A Fib with occasional PVC and pacer spike, no acute distress noted at this time, call light in reach, will continue to monitor.
--- NOTE | 2017-05-08 11:59 | SW/DCPLANNER ---
Addendum entered by Nusrat Clifton 05/08/17 15:11: Patient has been accepted to services for [facility] services that will begin tomorrow. Rashid has also called stating that this patient does qualify for wheelchair under his [facility] benefit. Original Note: Spoke with patient and patients son regarding discharge plans. Patient will be discharging home this afternoon. Patients son has stated that a family member will be with patient at all times. Patient will need a CHF home health program..this will be set up through [facility]. Patient also has a wheel-chair at home that he rents from Rashid. I will fax patient information to Rashid to see if patient can qualify for wheelchair under [facility] benefit. Patient is planned to discharge home this afternoon.
--- NOTE | 2017-05-08 13:06 | HMH.DCSUM ---
General - General Admission date: 05/06/17 Discharge date: 05/08/17 HPI HPI: 76-year-old white male with known coronary disease, pacemaker implantation, CABG in 1995 and ongoing congestive heart failure who presented to the emergency department after leaving urology clinic yesterday after Chavez catheter was discontinued from recent episode of bladder outlet obstruction. In the emergency department he was found to be weak, had evidence of CHF exacerbation and have hyponatremia. He was admitted to hospital for IV diuresis. Cautious sodium replacement therapy. This morning he feels better, his only complaint today is right knee acute gouty arthritis. Patient's regular cardiology group visit [facility], follows with EP, Dr. Fuentes, his regular manager utilization review is Dr. Chito Barrios. Hospital Course Hospital Course: Patient was admitted to the medical surgical unit. Urinalysis was obtained which was presumed to indicate a UTI. He was given ceftriaxone infusions which he tolerated well. Urine culture showed contamination. Blood cultures negative to date. He was recently treated by Dr. Shipman for UTI. His sodium was gently replaced with IV infusions of normal saline and his RIANA-I was held. An echocardiogram was obtained which showed EF 20% with severe LV global hypokinesis and multiple other abnormalities. See echo report for complete details. Patient's cardizem and ramipril were discontinued and he was started on Entresto. Patient was provided 3 weeks of samples. He will FU with Dr. Barrios for further titration of Entresto. He is planning to transition to Dr. Mota and has an appointment scheduled in 2 weeks. Patient has generalized weakness and an ataxic gait that creates a safety concern. He is unable to utilize a cane or walker safely due to weakness and shortness of breath. Patient needs a wheelchair to safely ambulate within his home and this will be arranged at discharge. Home health will be arranged for PT/OT and family have arranged for sitters 30/09. Discharge home on Entresto. D/c ramipril and cardizem. FU with Dr. Barrios at scheduled appointment next week. Objective Vital signs: Temp Pulse Resp BP Pulse Ox 97.0 F L 82 18 112/53 97 05/08/17 11:47 05/08/17 11:47 05/08/17 11:47 05/08/17 11:47 05/08/17 11:47 Narrative: ALert and oriented x3. Rate and rhythm regular. Trace LE edema. Lung sound clear anteriorly. Abdomen soft and nontender Discharge Plan - Patient Discharge Instructions ACTIVITY: Continue current activity DIET: continue same diet - Follow up Plan Follow up with: Chito Barrios [Primary Care Provider] - 05/12/17 Disposition: Home Health Service Home Medications: Home Medications Medication Instructions Recorded Confirmed Type Apixaban [Eliquis] 2.5 mg PO BID 05/03/17 05/07/17 History Atorvastatin Calcium [Lipitor 20mg 20 mg PO HS 05/03/17 05/06/17 History Tablet] Ezetimibe [Zetia] 10 mg PO DAILY 05/03/17 05/06/17 History Furosemide [Furosemide 40MG tAB] 40 mg PO BID 05/03/17 05/07/17 History Gabapentin [Neurontin 300mg 300 mg PO HS 05/03/17 05/07/17 History capsule] Insulin Glargine,Hum.rec.anlog 55 unit SQ HS 05/03/17 05/06/17 History [Lantus Insulin 100units/mL 10mL vial] Isosorbide Mononitrate [Imdur 60mg 120 mg PO DAILY 05/03/17 05/06/17 History ER tablet] Omeprazole [Omeprazole 20mg 20 mg PO DAILY 05/03/17 05/06/17 History Capsule] Potassium Chloride [Klor-Con 10mEq 10 meq PO DAILY 05/03/17 05/06/17 History tab] Ramipril 1.25 mg PO DAILY 05/03/17 05/06/17 History Sotalol HCl [Sotalol] 120 mg PO DAILY 05/03/17 05/06/17 History Tamsulosin HCl [Flomax 0.4mg 0.4 mg PO BID 05/03/17 05/06/17 History capsule] dilTIAZem HCl [Diltiazem 240mg 240 mg PO DAILY 05/03/17 05/06/17 History 24Hr ER Cap] Allopurinol [Allopurinol 100mg 200 mg PO DAILY 05/06/17 05/07/17 History tablet] Prescriptions/Medication Reconci
--- NOTE | 2017-05-08 13:10 | P.DS_ITS ---
General - General Admission date: 05/06/17 Discharge date: 05/08/17 HPI HPI: 76-year-old white male with known coronary disease, pacemaker implantation, CABG in 1995 and ongoing congestive heart failure who presented to the emergency department after leaving urology clinic yesterday after Chavez catheter was discontinued from recent episode of bladder outlet obstruction. In the emergency department he was found to be weak, had evidence of CHF exacerbation and have hyponatremia. He was admitted to hospital for IV diuresis. Cautious sodium replacement therapy. This morning he feels better, his only complaint today is right knee acute gouty arthritis. Patient's regular cardiology group visit [facility], follows with EP, Dr. Fuentes, his regular private household worker is Dr. Chito Barrios. Hospital Course Hospital Course: Patient was admitted to the medical surgical unit. Urinalysis was obtained which was presumed to indicate a UTI. He was given ceftriaxone infusions which he tolerated well. Urine culture showed contamination. Blood cultures negative to date. He was recently treated by Dr. Shipman for UTI. His sodium was gently replaced with IV infusions of normal saline and his RIANA-I was held. An echocardiogram was obtained which showed EF 20% with severe LV global hypokinesis and multiple other abnormalities. See echo report for complete details. Patient's cardizem and ramipril were discontinued and he was started on Entresto. Patient was provided 3 weeks of samples. He will FU with Dr. Barrios for further titration of Entresto. He is planning to transition to Dr. Mota and has an appointment scheduled in 2 weeks. Patient has generalized weakness and an ataxic gait that creates a safety concern. He is unable to utilize a cane or walker safely due to weakness and shortness of breath. Patient needs a wheelchair to safely ambulate within his home and this will be arranged at discharge. Home health will be arranged for PT/OT and family have arranged for sitters 30/09. Discharge home on Entresto. D/c ramipril and cardizem. FU with Dr. Barrios at scheduled appointment next week. Objective Vital signs: Temp Pulse Resp BP Pulse Ox 97.0 F L 82 18 112/53 97 05/08/17 11:47 05/08/17 11:47 05/08/17 11:47 05/08/17 11:47 05/08/17 11:47 Narrative: ALert and oriented x3. Rate and rhythm regular. Trace LE edema. Lung sound clear anteriorly. Abdomen soft and nontender Discharge Plan - Patient Discharge Instructions ACTIVITY: Continue current activity DIET: continue same diet - Follow up Plan Follow up with: Chito Barrios [Primary Care Provider] - 05/12/17 Disposition: Home Health Service Home Medications: Home Medications Medication Instructions Recorded Confirmed Type Apixaban [Eliquis] 2.5 mg PO BID 05/03/17 05/07/17 History Atorvastatin Calcium [Lipitor 20mg 20 mg PO HS 05/03/17 05/06/17 History Tablet] Ezetimibe [Zetia] 10 mg PO DAILY 05/03/17 05/06/17 History Furosemide [Furosemide 40MG tAB] 40 mg PO BID 05/03/17 05/07/17 History Gabapentin [Neurontin 300mg 300 mg PO HS 05/03/17 05/07/17 History capsule] Insulin Glargine,Hum.rec.anlog 55 unit SQ HS 05/03/17 05/06/17 History [Lantus Insulin 100units/mL 10mL vial] Isosorbide Mononitrate [Imdur 60mg 120 mg PO DAILY 05/03/17 05/06/17 History ER tablet] Omeprazole [Omeprazole 20mg 20 mg PO DAILY 05/03/17 05/06/17 History Capsule] Potassium Chlorid
[2017-05-08 15:11] LABS: POC Glucose,Bedside 217 mg/dL (70-110)
[2017-05-08 15:12] LABS: POC Glucose,Bedside 167 mg/dL (70-110)
[2017-05-08 15:12] LABS: POC Glucose,Bedside 145 mg/dL (70-110)
[2017-05-08 15:12] LABS: POC Glucose,Bedside 145 mg/dL (70-110)
[2017-05-08 15:13] LABS: POC Glucose,Bedside 142 mg/dL (70-110)
[2017-05-08 15:14] LABS: POC Glucose,Bedside 134 mg/dL (70-110)
[2017-05-08 15:14] LABS: POC Glucose,Bedside 167 mg/dL (70-110)
[2017-05-08 15:14] LABS: POC Glucose,Bedside 128 mg/dL (70-110)
[2017-05-09 14:44] LABS: Magnesium 1.6 mg/dL (1.4-2.2)
== END 2017-05-08 15:44 | disposition home health service (06) ==
LOC: ER 16:34 → 2ND 16:46
PROVIDERS: Admitting Provider Emergency Medicine; Emergency Provider Emergency Medicine; Family Provider Internal Medicine; PCP Internal Medicine; Visit Provider Internal Medicine Adolescent Medicine
DX: I50.9 Heart failure, unspecified (principal); N39.0 Urinary tract infection, site not specified; E87.1 Hypo-osmolality and hyponatremia; E11.9 Type 2 diabetes mellitus without complications; Z95.1 Presence of aortocoronary bypass graft; Z95.0 Presence of cardiac pacemaker; I25.10 Atherosclerotic heart disease of native coronary artery without angina pectoris
CPT/HCPCS: 36415; 71045; 74176; 80048; 80053; 81001; 82550; 82553; 82962; 83605; 83735; 83880; 84484; 84550; 85025; 87040; 87086; 87275; 87276; 93005; 93041; 93306; 96365; 96367; 96374; 96375; 99285; G0378

== ENCOUNTER → 2017-05-22 07:44 | Day surgery (SDC) | payer MEDICARE, MEDICAID, SELFPAY ==
[2017-05-22] VITALS (27 sets, daily range): BP systolic 101–167; BP diastolic 52–86; PULSE 60–90; RESP 16–20; TEMP 36.5–36.7; O2SAT 94–99; BMI 33.7
--- NOTE | 2017-05-22 07:09 | IR_ITS ---
CARDIAC CATHETERIZATION DATE OF CATHETERIZATION:05/22/2017 10:22 AM PROCEDURES: 1. Left heart catheterization 2. Left ventriculogram 3. Selective coronary angiogram 4. Selective engagement of the left internal mammary artery 5. Selective engagement of the saphenous vein graft to the right coronary artery 6. Selective engagement of the saphenous vein graft to the circumflex artery 7. Selective engagement of the saphenous vein graft to the diagonal artery INDICATION FOR TEST: 1. History of coronary artery bypass surgery 2. Coronary artery disease 3. Class 3-4 angina pectoris 4. Class III to IV near [employer] congestive heart failure Informed consent was obtained prior to the procedure. COMPLICATIONS: None ESTIMATED BLOOD LOSS: Less than 10 ml. TECHNIQUE: One percent lidocaine used to anesthetize the right groin. The right femoral artery was accessed via the Seldinger technique and a 5 Panamanian sheath was placed in the right femoral artery. A JL 4 JR4 catheter were used to perform left ventriculogram selective coronary angiography as well as selective engagement of the vein grafts. Eventually a long 45 cm 6 Panamanian sheath was required in order to straighten out the tortuous iliofemoral femoral arteries and allow better control of the distal tip of the catheter. The left internal mammary artery was selectively engaged as were 3 different vein grafts. An AL1 guide catheter and LCB catheter were used to engage the vein grafts. At the end of the procedure the patient was transferred to the postop holding area in stable condition for sheath removal ANGIOGRAPHIC RESULTS: 1. The left main artery has an ostial 70% stenosis which then supplies a solitary what appears to be a small to medium sized ramus intermedius 2. The left anterior descending artery ostially occluded 3. The circumflex artery ostially occluded 4. The right coronary artery ostially occluded 5. The PEREZ ventriculogram reveals severe left ventricular dilatation severely reduced ejection fraction. There is apical akinesis. Estimated ejection fractions 20% 6. The left ventricular end-diastolic pressure 10 mmHg 7. The left internal mammary artery iswidely patent to the LAD. Distal to the anastomosis the LAD is a small caliber vessel with no significant focal stenosis 8. The saphenous vein graft to the right coronary artery is widely patent there is atheromatous debris but no stenosis greater than 20%. This supplies a dominant distal right coronary artery into the posterior descending artery and backfilling a posterior lateral ventricular branch 9. The saphenous vein graft to the circumflex artery is proximally occluded 10. The saphenous vein graft to the presumed diagonal artery is ostially occluded IMPRESSION: 1. Severe 2. Interval occlusion of the saphenous vein graft supplying the Circumflex artery from last heart catheter 3. Acute non-ST elevation myocardial infarction stemming from interval loss of saphenous vein graft to the Circumflex artery. 4. Patent CLAYTON to LAD 5. Patent saphenous vein graft to the right coronary artery 6. Left ventricular dilatation with mild to moderately reduced LV function 7. Normal LVEDP PLAN: 1. Standard therapy for systolic heart failure 2. Restart anticoagulation for atrial fibrillation 3. Medical management for coronary artery disease 4. I do not believe stenting the ostial left main artery in order to supply the small to medium sized ramus would be advantageous. There is ROSELYN-3 flow down this vessel and I believe a high pressure manipulation of the aorta could possibly create a dissection in the aorta. I don't believe there is clinical benefit to revascularizing this relatively small vessel
[2017-05-22 08:17] LABS: Basophils # 0.1 K/mm3 (0-0.2); Eosinophils # 0.5 K/mm3 (0.0-0.4); Eosinophils % 7.4 % (0.1-12.0); Hematocrit 47.4 % (42.0-52.0); Hemoglobin 14.5 g/dL (14.1-18.0); Lymphocytes # 2.2 K/mm3 (0.7-4.5); Lymphocytes % 30.5 K/mm3 (10-50); Mean Corpuscular HGB Conc 30.6 g/dL (31.8-35.4); Mean Corpuscular Hemoglobin 29.8 pg (27.0-31.2); Mean Corpuscular Volume 97.3 fl (80-94); Mean Platelet Volume 7.7 fl (7.4-10.4); Monocytes # 0.5 K/mm3 (0.1-1.0); Monocytes % 6.7 % (1.7-9.3); Neutrophils # 3.8 K/mm3 (1.8-7.8); Neutrophils % 54.3 % (37.0-80.0); Platelet Count 192 K/mm3 (142-424); Red Blood Count 4.87 M/mm3 (4.60-6.20); Red Cell Distribution Width 16.2 % (11.5-17.5); White Blood Count 7.1 K/mm3 (4.8-10.8)
[2017-05-22 08:21] LABS: Anion Gap 10.2 mEq/L (5-15); Blood Urea Nitrogen 37 mg/dL (7-18); Carbon Dioxide 32 mmol/L (21.0-32.0); Chloride 103 mmol/L (98-107); Creatinine Clearance Estimated 58 mL/min (0-300); Creatinine,Serum 1.41 mg/dL (0.70-1.30); Estimated Glomerular Filt Rate 49 ml/min (>60); GFR (African American) 59 ML/MIN (>60); Glucose 164 mg/dL (74-106); Potassium 4.2 mmoL/L (3.5-5.1); Sodium 141 mmol/L (136-145)
--- NOTE | 2017-05-22 15:06 | SUR.PHASEII ---
Pt is to be recovered until discharged from hospital by seema kelley rn. pt understands all dc teaching information given by warehouse general laborer nurses
--- NOTE | 2017-05-22 19:29 | PC.NURSE ---
groin site soft and nontender with no s/sx of hematoma. site noted to have slight bruising to the area of r groin. pt is on blood thinners and pt family given post cath dc instructions per incinerator plant laborer rns. reinforced with pt prior to discharge home. dressing remains cdi to r groin, small pencil eraser sized are of bleeding to dressing noted, unchanged since arrival on floor. vss during post op period. pt assisted out via rolling walker to pov with family.
== END ==
PROVIDERS: Family Provider Internal Medicine; PCP Internal Medicine; Visit Provider Internal Medicine
DX: I50.23 Acute on chronic systolic (congestive) heart failure (principal); I25.110 Atherosclerotic heart disease of native coronary artery with unstable angina pectoris; R06.00 Dyspnea, unspecified; Z95.1 Presence of aortocoronary bypass graft; Z95.0 Presence of cardiac pacemaker; Z95.5 Presence of coronary angioplasty implant and graft; Z79.4 Long term (current) use of insulin; E11.9 Type 2 diabetes mellitus without complications; I48.91 Unspecified atrial fibrillation; I21.4 Non-ST elevation (NSTEMI) myocardial infarction
CPT/HCPCS: 80048; 85025; 93459; 99152; 99153; C1725; C1769; C1894; J1644; Q9967

== ENCOUNTER 2017-07-21 11:30 | Outpatient (CLI) | payer MEDICARE, MEDICAID, SELFPAY ==
[2017-07-21] VITALS (11 sets, daily range): BP systolic 92–108; BP diastolic 40–52; PULSE 60–74; RESP 18; TEMP 36.4–36.6; O2SAT 97–100; BMI 32.8
[2017-07-21 12:14] LABS: Basophils # 0.1 K/mm3 (0-0.2); Basophils % 0.8 % (0.1-2.0); Eosinophils # 0.8 K/mm3 (0.0-0.4); Eosinophils % 11.6 % (0.1-12.0); Hematocrit 41.6 % (42.0-52.0); Hemoglobin 13.5 g/dL (14.1-18.0); Lymphocytes % 28.2 K/mm3 (10-50); Mean Corpuscular HGB Conc 32.5 g/dL (31.8-35.4); Mean Corpuscular Hemoglobin 31.3 pg (27.0-31.2); Mean Corpuscular Volume 96.5 fl (80-94); Mean Platelet Volume 8.1 fl (7.4-10.4); Monocytes # 0.5 K/mm3 (0.1-1.0); Monocytes % 6.9 % (1.7-9.3); Neutrophils # 3.8 K/mm3 (1.8-7.8); Neutrophils % 52.5 % (37.0-80.0); Platelet Count 117 K/mm3 (142-424); Red Blood Count 4.31 M/mm3 (4.60-6.20); Red Cell Distribution Width 17.3 % (11.5-17.5); White Blood Count 7.2 K/mm3 (4.8-10.8)
[2017-07-21 12:22] LABS: Anion Gap 11.3 mEq/L (5-15); Blood Urea Nitrogen 57 mg/dL (7-18); Carbon Dioxide 25 mmol/L (21.0-32.0); Chloride 104 mmol/L (98-107); Creatinine Clearance Estimated 41 mL/min (0-300); Creatinine,Serum 1.93 mg/dL (0.70-1.30); Estimated Glomerular Filt Rate 34 ml/min (>60); GFR (African American) 41 ML/MIN (>60); Glucose 211 mg/dL (74-106); Sodium 140 mmol/L (136-145)
[2017-07-21 12:31] LABS: Troponin I < 0.02 ng/ml (0.00-0.06)
[2017-07-21 14:29] LABS: Appearance,Urine CLEAR (Clear); Bilirubin,Urine Negative (Negative); Blood, Urine Negative (Negative); Color,Urine YELLOW (Yellow); Glucose,Urine (UA) Negative (Negative); Ketones,Urine Negative (Negative); Leukocyte Esterase,Urine Negative (Negative); Microscopic, Urine URINE MICROSCOPIC (MICROSCOPIC); Nitrate,Urine Negative (Negative); Protein,Urine Negative (Negative); Urobilinogen,Urine 0.2 EU/dl (0.2)
[2017-07-21 14:46] LABS: Bacteria,Urine Trace /lpf; RBC,Urine Occasional #/hpf (0-3); WBC,Urine Occasional #/hpf (0-3)
[2017-07-21 14:47] LABS: Hyaline Casts,Urine Occasional #/lpf (0)
== END 2017-07-21 17:11 | disposition home or self-care (01) ==
LOC: INF 11:32
PROVIDERS: PCP Internal Medicine; Visit Provider Internal Medicine
DX: E86.0 Dehydration (principal); R53.1 Weakness; I95.9 Hypotension, unspecified
CPT/HCPCS: 80048; 81001; 84484; 85025; 96360; 96361

== ENCOUNTER → 2017-08-26 11:14 | Outpatient (CLI) | payer MEDICARE, MEDICAID, SELFPAY ==
--- NOTE | 2017-08-26 11:22 | CT_ITS ---
CT abdomen pelvis wo con CLINICAL INDICATION: Left flank pain ITS.REASON: UROLITHIASIS, LT FLANK PAIN ORDERING PHYSICIAN: Darnell Shipman MD PATIENT AGE: 77 years COMPARISON: 09/20/2016 TECHNIQUE: Axial images obtained with sagittal and coronal reformats. All CT scans at the facility use one or more dose reduction, viz: automated exposure control; ma/kV adjustment per patient size (including targeted exams where dose is matched to indication; i.e. head); or iterative reconstruction technique. PROCEDURE: Oral Contrast: None IV Contrast: None . FINDINGS: There is mild cardiomegaly. There has been prior CABG. The liver, spleen, adrenal glands, and pancreas have an unremarkable unenhanced CT appearance. Prior cholecystectomy. There are bilateral punctate renal calculi measuring up to 3 mm in the lower pole on the right and 5 mm in the mid to lower pole on the left. There are bilateral renal cysts. There is a 4 mm stone at the left ureteropelvic junction with only minimal ectasia of the left renal collecting system. No distal ureteral calculi. No stones in the urinary bladder. There is mild thickening of the wall of urinary bladder which is nonspecific and may in part be due to the nondistention. There is some mild stranding of the right perinephric renal fat not cystic No intestinal obstruction or free air. There is diverticulosis throughout the colon with no evidence of diverticulitis. There are degenerative changes of the lumbar spine. IMPRESSION: 1. Bilateral renal calculi with a 4 mm stone at the left ureteropelvic junction with only minimal ectasia of the left renal collecting system. 2. Schreiber colonic diverticulosis. No evidence of diverticulitis
== END ==
PROVIDERS: PCP Internal Medicine; Visit Provider Urology
DX: N20.0 Calculus of kidney (principal); R10.9 Unspecified abdominal pain
CPT/HCPCS: 74176

== ENCOUNTER 2018-04-14 12:12 | Outpatient (CLI) | payer MEDICARE, MEDICAID, SELFPAY ==
[2018-04-14 12:36] VITALS: BP 124/61; PULSE 79; RESP 18; TEMP 36.6; O2SAT 98
[2018-04-14 13:16] LABS: Anion Gap 11.4 mEq/L (5-15); Blood Urea Nitrogen 32 mg/dL (7-18); Calcium 8.6 mg/dL (8.5-10.1); Carbon Dioxide 31 mmol/L (21.0-32.0); Chloride 102 mmol/L (98-107); Creatinine,Serum 1.63 mg/dL (0.70-1.30); Estimated Glomerular Filt Rate 41 ml/min (>60); GFR (African American) 50 ML/MIN (>60); Glucose 202 mg/dL (74-106); Potassium 4.4 mmoL/L (3.5-5.1); Sodium 140 mmol/L (136-145)
== END 2018-04-14 12:50 | disposition home or self-care (01) ==
LOC: INF 12:12
PROVIDERS: Nurse Practitioner Family; Visit Provider Internal Medicine
DX: N39.0 Urinary tract infection, site not specified (principal); I11.9 Hypertensive heart disease without heart failure; I25.10 Atherosclerotic heart disease of native coronary artery without angina pectoris; I48.91 Unspecified atrial fibrillation
CPT/HCPCS: 36415; 80048; 96372; J1335

== ENCOUNTER 2018-04-16 11:19 | Outpatient (CLI) | payer MEDICARE, MEDICAID, SELFPAY ==
[2018-04-16 11:32] VITALS: BP 119/69; PULSE 79; RESP 18; TEMP 36.7; O2SAT 97
== END 2018-04-16 11:50 | disposition home or self-care (01) ==
LOC: INF 11:19
PROVIDERS: Visit Provider Internal Medicine
DX: N39.0 Urinary tract infection, site not specified (principal)
CPT/HCPCS: 96372; J1335

== ENCOUNTER 2018-04-17 13:45 | Outpatient (CLI) | payer MEDICARE, MEDICAID, SELFPAY ==
[2018-04-17 14:20] VITALS: BP 132/70; PULSE 74; RESP 20; O2SAT 97
== END 2018-04-17 14:35 | disposition home or self-care (01) ==
LOC: INF 14:00
PROVIDERS: Visit Provider Internal Medicine
DX: N39.0 Urinary tract infection, site not specified (principal)
CPT/HCPCS: 96372; J1335

== ENCOUNTER → 2018-04-18 10:17 | Outpatient (CLI) | payer MEDICARE, MEDICAID, SELFPAY ==
[2018-04-18 10:49] VITALS: BP 113/55; PULSE 79; RESP 18; O2SAT 98
== END ==
PROVIDERS: PCP Internal Medicine; Visit Provider Internal Medicine
DX: N39.0 Urinary tract infection, site not specified (principal)
CPT/HCPCS: 96372; J1335

== ENCOUNTER → 2018-04-19 10:01 | Outpatient (CLI) | payer MEDICARE, MEDICAID, SELFPAY ==
[2018-04-19 10:25] VITALS: BP 127/63; PULSE 79; RESP 18; O2SAT 96
== END ==
PROVIDERS: PCP Internal Medicine; Visit Provider Internal Medicine
DX: N39.0 Urinary tract infection, site not specified (principal)
CPT/HCPCS: 96372; J1335

== ENCOUNTER 2018-04-20 10:50 | Outpatient (CLI) | payer MEDICARE, MEDICAID, SELFPAY ==
[2018-04-20 11:09] VITALS: BP 116/55; PULSE 81; RESP 18; TEMP 36.6; O2SAT 96
== END 2018-04-20 11:33 | disposition home or self-care (01) ==
LOC: INF 10:50
PROVIDERS: Visit Provider Internal Medicine
DX: N39.0 Urinary tract infection, site not specified (principal)
CPT/HCPCS: 96401; J1335

== ENCOUNTER 2018-05-04 12:26 | Inpatient (IN) ==
[2018-05-04 14:47] LABS: Albumin/Globulin Ratio 0.7 (1.1-1.8); Anion Gap 12.1 mEq/L (5-15); Basophils # 0.1 K/mm3 (0-0.2); Basophils % 1.3 % (0.1-2.0); Bilirubin,Total 0.9 mg/dL (0.2-1.0); Calcium 9.2 mg/dL (8.5-10.1); Eosinophils # 0.5 K/mm3 (0.0-0.4); Eosinophils % 8.8 % (0.1-12.0); Globulin 4.1 gm/dl (1.3-3.2); Hematocrit 41.1 % (42.0-52.0); Hemoglobin 12.2 g/dL (14.1-18.0); Lymphocytes # 1.8 K/mm3 (0.7-4.5); Lymphocytes % 32.2 % (10-50); Mean Corpuscular HGB Conc 29.8 g/dL (31.8-35.4); Mean Corpuscular Hemoglobin 28.1 pg (27.0-31.2); Mean Corpuscular Volume 94.5 fl (80-94); Mean Platelet Volume 9.3 fl (7.4-10.4); Monocytes # 0.3 K/mm3 (0.1-1.0); Monocytes % 5.9 % (1.7-9.3); Neutrophils # 2.9 K/mm3 (1.8-7.8); Neutrophils % 51.7 % (37.0-80.0); Platelet Count 121 K/mm3 (142-424); Potassium 4.1 mmoL/L (3.5-5.1); Red Blood Count 4.35 M/mm3 (4.60-6.20); Red Cell Distribution Width 18.5 % (11.5-17.5); Total Protein,Serum 7.1 gm/dL (6.4-8.2); White Blood Count 5.7 K/mm3 (4.8-10.8)
--- NOTE | 2018-05-04 15:17 | Progress Note ---
Subjective Date: 05/04/18 Time: 15:14 Interval history: The patient is here for f/u on BiV AICD interrogation. The patient had a positive Corvue and his Lasix was increased. He was due here for f/u today. His last 2 AICD interrogations show that hae is BiV pacing 81% and 49%. He is BiV pacing less than the limit. Discussed this with Terry Atwood, with [facility], the patient has been in chronic afib for the last 2 months, whereas before he was having only intermittent afib. He recommended maybe increasing his BBs or trying an anti-arrhymthic so he will BiV pace more. Pt is having SOB and edema. This is better but edema has been so bad that he had anasarca. this has improved with increasing diuretics. Corvue is now negative. Afib is chronic. Pt on Eliquis for a/c. He is a candidate for Tikosyn for afib suppression to improve BiV pacing. Will have to admit the patient for Tikosyn initiation. Start Tikosyn 125 mcg BID for afib once hospitalized. If this does not convert pt by Friday, increase Tikosyn to 250 mcg BID. then consider cardioversion on if this does not convert the patient. CAD is stable. Denies CP or pressure. BP is excellent. LDL goal is < 55. AICD in place and followed in our clinic. Last d/l shows no events. Corvue is negative. a-pacing < 1% and BiV pacing 81%. AT/AF > 99%, on Eliquis. EKG is v-pacing with underlying afib. Addendum: Tikosyn is not formulary here at [facility]. So will give him a loading dose of IV Amiodarone, then start an amio drip. will run the drip until the first bag runs out and then will start PO amiodarone 400 mg BID for afib suppression. If he does not convert to SR by , will still proceed with cardioversion. Exam Vital signs and Labs for Last 24 Hours: Temp Pulse Resp BP Pulse Ox 97.9 F 81 18 121/59 L 100 05/04/18 12:38 05/04/18 12:38 05/04/18 12:38 05/04/18 12:38 05/04/18 12:38 Laboratory Results - last 24 hr 05/04/18 13:15: WBC 5.7, RBC 4.35 L, Hgb 12.2 L, Hct 41.1 L, MCV 94.5 H, MCH 28.1, MCHC 29.8 L, RDW 18.5 H, Plt Count 121 L, MPV 9.3, Neut % (Auto) 51.7, Lymph % (Auto) 32.2, [place] % (Auto) 5.9, Eos % (Auto) 8.8, Baso % (Auto) 1.3, Neut # (Auto) 2.9, Lymph # (Auto) 1.8, [place] # (Auto) 0.3, Eos # (Auto) 0.5 H, Baso # (Auto) 0.1 05/04/18 13:15: Sodium 141, Potassium 4.1, Chloride 102, Carbon Dioxide 31, Anion Gap 12.1, BUN 42 H, Creatinine 1.93 H, Estimated Creat Clear 39, Estimated GFR 34 L, Est GFR ( Amer) 41 L, Glucose 227 H, Calcium 9.2, Total Bilirubin 0.9, AST 11 L, ALT 16, Alkaline Phosphatase 102, Total Protein 7.1 D, Albumin 3.0 L, Globulin 4.1 H, Albumin/Globulin Ratio 0.7 L I & O for Last 24 hours: Intake & Output 05/01/18 05/02/18 05/03/18 05/04/18 23:59 23:59 23:59 23:59 Weight 190 lb 2 oz
[2018-05-04 15:55] LABS: Free T4 (Free Thyroxine) 1.04 ng/dl (0.76-1.46); Thyroid Stimulating Hormone 3.27 uIU/ml (0.358-3.740)
--- NOTE | 2018-05-04 19:42 | Cardiology Report ---
PROCEDURE: 2-D M-mode and color Doppler study INDICATIONS FOR THE TEST: Chest painX COPD Heart Murmur Tobacco Smoking Palpitations FatigueX Syncope Edema HypertensionXDiabetes MellitusX Rheumatic Fever SOBXDOE Obesity HyperlipidemiaX Family History HD Additional History AF.AICD,CAD EF 20% 05/06/17 PATIENT INFORMATION HEIGHT: 65 WEIGHT:190 GENDER: Male B/P: 2-D/M-MODE INTERPRETATION: 2-D MEASUREMENTS OBSERVED VALUES IN CMS Right Ventricular Dimension (RVDd) 3.8 Interventricular Septum (Thickness)(IVsd) 1.2 Left Ventricular Internal Dimensions(LVIDd) 6.0 Left Ventricular Posterior Wall (Thickness)(LVPWd) 1.0 Aortic Root 3.2 Aortic Cusp Separation 1.8 Left Atrial Dimensions (LAD) 5.3 2D 1. Left atrium is moderately enlarged, left ventricle is mildly dilated, there is mild concentric left ventricular hypertrophy, severely reduced left ventricular systolic function, visually estimated ejection fraction approximately 25%, there is marked hypokinesis involving the basal septum, inferior, inferolateral, lateral and posterobasal wall. 2. The right atrium and right ventricle are mildly enlarged with normal contractility, there is a catheter noted in the right ventricle. 3. The aortic valve is thickened and calcified leaflet continue to display mobility. 4. The mitral and tricuspid valve leaflets are minimally thickened. 5. The pulmonic valve is poorly present. 6. No significant pericardial effusion noted. DOPPLER INTERROGATION: Doppler interrogation of the aortic, mitral and tricuspid valvular presence of mild aortic insufficiency, moderate mitral and tricuspid regurgitation, calculated right ventricular systolic pressure 42 mmHg consistent with moderate pulmonary hypertension, inferior vena cava is dilated without significant inspiratory collapse. Diastolic parameters are inconclusive. CONCLUSION: 1. Biatrial enlargement, dilated left ventricle, severely reduced left ventricular systolic function, visually estimated ejection fraction 45% with multiple segmental wall motion abnormality as described above suggestive of ischemic cardiomyopathy. 2. Mild aortic, moderate mitral and tricuspid regurgitation, calculated right ventricular systolic pressure is 42 mmHg consistent with moderate pulmonary hypertension, inferior vena cava is dilated without significant inspiratory collapse. 3. No significant pericardial effusion noted.
--- NOTE | 2018-05-04 22:30 | History & Physical Report ---
*Admission Date: 05/04/18 *Chief complaint: chest pain *History of present illness: this wm was seen in card clinic today e patient is here for f/u on BiV AICD interrogation. The patient had a positive Corvue and his Lasix was increased. He was due here for f/u today. His last 2 AICD interrogations show that hae is BiV pacing 81% and 49%. He is BiV pacing less than the limit. Discussed this with Terry Atwood, with [facility], the patient has been in chronic afib for the last 2 months, whereas before he was having only intermittent afib. He recommended maybe increasing his BBs or trying an anti-arrhymthic so he will BiV pace more. Pt is having SOB and edema. This is better but edema has been so bad that he had anasarca. this has improved with increasing diuretics. Corvue is now negative. Afib is chronic. Pt on Eliquis for a/c. He is a candidate for Tikosyn for afib suppression to improve BiV pacing. Will have to admit the patient for Tikosyn initiation. Start Tikosyn 125 mcg BID for afib once hospitalized. If this does not convert pt by Friday, increase Tikosyn to 250 mcg BID. then consider cardioversion on if this does not convert the patient. CAD is stable. Denies CP or pressure. BP is excellent. LDL goal is < 55. AICD in [address] and followed in our clinic. Last d/l shows no events. Corvue is negative. a-pacing < 1% and BiV pacing 81%. AT/AF > 99%, on Eliquis. EKG is v-pacing with underlying afib. [facility] History I have reviewed the patient's past medical history: Yes Medical History: Reports:: Atrial Fibrillation, Congestive Heart Failure, Diabetes Mellitus Type 2, Gastroesophageal Reflux Disease(GERD), Home Oxygen, Hyperlipidemia, Hypertension, Internal Pacemaker, Renal Insufficiency Denies:: Cancer, Diabetes Mellitus Type 1, MRSA, Seizures *Have you ever received a pneumonia vaccine?: Yes *Have you received a flu vaccine this season?: Yes Other Medical History: Reports: Arthritis. Denies: Blood Transfusion Reaction Other Surgeries: Yes: CABG, Cholecystectomy, Pacemaker Amputation: No Fractures: No - *Social History Smoking Status: Unknown if ever smoked Alcohol Intake: never Alcohol Intake Frequency:: other Substance Use Type: denies use *Occupational Status:: retired *Travel in the last 8 weeks: None - Psychiatric History Expresses thoughts of harming self/others: None Suicide Plan Description: No Plan Family Hx:: Cancer, Hyperlipidemia, Diabetes Review of Systems - Review of Systems Review of systems:: pertinent systems reviewed and negative unless documented below - Constitutional Reports fatigue, Reports lack of energy, Denies fever(s) - Eyes Denies change in vision - ENT Denies sore throat - *Cardiovascular Reports shortness of breath, Reports fast heart rate, Denies chest pain at rest - *Respiratory Reports shortness of breath with activity, Denies cough - *Gastrointestinal Denies abdominal pain - *Genitourinary Denies blood in urine - *Musculoskeletal Denies joint pain, Denies joint swelling - Integumentary/Breasts Denies rash - *Neurologic Denies seizure-like activity - Psychiatric Denies anxiety Meds Home Medications Medication Instructions Recorded Confirmed Type Apixaban [Eliquis] 2.5 mg PO BID 05/03/17 05/04/18 History Gabapentin [Neurontin 300mg 300 mg PO HS 05/03/17 05/04/18 History capsule] Isosorbide Mononitrate [Imdur 60mg 120 mg PO HS 05/03/17 05/04/18 History ER tablet] Omeprazole [Omeprazole 20mg 20 mg PO HS 05/03/17 05/04/18 History Capsule] Tamsulosin HCl [Flomax 0.4mg 0.4 mg PO HS 05/03/17 05/04/18 History capsule] Allopurinol [Allopurinol 100mg 200 mg PO DAILY 05/06/17 05/04/18 History tablet] nitroglycerin 0.4 mg sublingual 0.4 mg SUBLINGUAL Q5M PRN 05/27/17 05/04/18 History tablet Rosuvastatin Calcium [Crestor] 5 mg PO HS 07/02/17 05/04/18 History Sacubitril/Valsartan [Entresto 49 1 tab PO BID 07/21/17 05/04/18 History mg-51 mg Tablet] bisoprolol fumarate 10 mg tablet 10 mg PO DAILY #30 tab 10/06/17 05/04/18 Rx aspirin 325 mg tablet 325 mg PO DAILY 11/25/17 05/04/18 History potassium chloride ER 10 mEq 20 meq PO DAILY tab 11/25/17 05/04/18 History tablet,extended release Ezetimibe 10 mg PO DAILY 05/04/18 05/04/18 History Furosemide [Furosemide 40MG tAB] 80 mg PO DAILY 05/04/18 05/04/18 History Insulin Glargine,Hum.rec.anlog 55 unit SQ HS 05/04/18 05/04/18 History [Basaglar Kwikpen U-100] furosemide 40 mg tablet 40 mg PO HS tab 05/04/18 05/04/18 History Allergies Allergy/AdvReac Type Severity Reaction Status Date / Time labetalol [LABETALOL] Allergy Unknown "MAKES ME Verified 05/04/18 11:44 CRAZY" Exam Vital signs and Labs for Last 24 Hours: Temp Pulse Resp BP Pulse Ox 97.6 F 72 17 106/54 L 99 05/04/18 20:00 05/04/18 21:00 05/04/18 20:00 05/04/18 21:00 05/04/18 21:05 Laboratory Results - last 24 hr 05/04/18 13:15: WBC 5.7, RBC 4.35 L, Hgb 12.2 L, Hct 41.1 L, MCV 94.5 H, MCH 28.1, MCHC 29.8 L, RDW 18.5 H, Plt Count 121 L, MPV 9.3, Neut % (Auto) 51.7, Lymph % (Auto) 32.2, [place] % (Auto) 5.9, Eos % (Auto) 8.8, Baso % (Auto) 1.3, Neut # (Auto) 2.9, Lymph # (Auto) 1.8, [place] # (Auto) 0.3, Eos # (Auto) 0.5 H, Baso # (Auto) 0.1 05/04/18 13:15: Sodium 141, Potassium 4.1, Chloride 102, Carbon Dioxide 31, Anion Gap 12.1, BUN 42 H, Creatinine 1.93 H, Estimated Creat Clear 39, Estimated GFR 34 L, Est GFR ( Amer) 41 L, Glucose 227 H, Calcium 9.2, Total Bilirubin 0.9, AST 11 L, ALT 16, Alkaline Phosphatase 102, Total Protein 7.1 D, Albumin 3.0 L, Globulin 4.1 H, Albumin/Globulin Ratio 0.7 L 05/04/18 13:15: TSH 3.27, Free T4 1.04 05/04/18 16:51: POC Glucose 178 H 05/04/18 19:49: POC Glucose 214 H I & O for Last 24 hours: Intake & Output 05/02/18 05/03/18 05/04/18 05/05/18 11:59 11:59 11:59 11:59 Intake Total 240 / 240 Output Total 240 / 240 Balance 0 / 0 Weight 190 lb 2 oz - Constitutional no acute distress, obese - *Routine HEENT Exam Head: Present: normocephalic Eye: Present: EOMI, PERRL ENT: Present: mucous membranes dry - *Routine Neck Exam Absent: JVD - *Routine Respiratory Exam Present: decreased breath sounds - *Routine Cardiovascular Exam Present: RRR, murmur, S4 - *Routine Abdominal Exam Present: soft - *Routine Extremities Exam Absent: calf tenderness - *Routine Skin Exam Present: intact - *Routine Neurological Exam Present: alert, oriented X3, CN II-XII intact - Routine Psychiatric Exam Present: normal affect Assessment and Plan (1) Obesity (BMI 30.0-34.9) Current visit: Yes Status: Acute Category: Medical Code(s): E66.9 - Obesity, unspecified (2) Renal insufficiency Current visit: Yes Status: Acute Category: Medical Code(s): N28.9 - Disorder of kidney and ureter, unspecified (3) Thrombocytopenia Current visit: Yes Status: Acute Category: Medical Code(s): D69.6 - Thrombocytopenia, unspecified (4) Diabetes Current visit: Yes Status: Acute Qualifiers: Diabetes mellitus type: type 2 Diabetes mellitus correction insulin use: with long term care social worker use Diabetes mellitus complication status: with unspecified complications Qualified Code(s): E11.8 - Type 2 diabetes mellitus with unspecified complications; Z79.4 - director long term care (current) use of insulin Category: Medical Code(s): E11.9 - Type 2 diabetes mellitus without complications (5) A-fib Current visit: Yes Status: Acute Category: Medical Code(s): I48.91 - Unspecified atrial fibrillation
[2018-05-05 06:14] LABS: Basophils # 0.1 K/mm3 (0-0.2); Basophils % 0.9 % (0.1-2.0); Eosinophils # 0.6 K/mm3 (0.0-0.4); Hematocrit 38.7 % (42.0-52.0); Hemoglobin 12.3 g/dL (14.1-18.0); Lymphocytes # 2.2 K/mm3 (0.7-4.5); Lymphocytes % 35.5 % (10-50); Mean Corpuscular HGB Conc 31.7 g/dL (31.8-35.4); Mean Corpuscular Hemoglobin 29.7 pg (27.0-31.2); Mean Corpuscular Volume 93.7 fl (80-94); Mean Platelet Volume 8.5 fl (7.4-10.4); Monocytes # 0.4 K/mm3 (0.1-1.0); Neutrophils # 2.9 K/mm3 (1.8-7.8); Neutrophils % 47.6 % (37.0-80.0); Platelet Count 108 K/mm3 (142-424); Red Blood Count 4.12 M/mm3 (4.60-6.20); Red Cell Distribution Width 18.6 % (11.5-17.5); White Blood Count 6.1 K/mm3 (4.8-10.8)
[2018-05-05 06:26] LABS: Anion Gap 11.9 mEq/L (5-15); Calcium 9.1 mg/dL (8.5-10.1); Chol/HDL Ratio 2.1 (1-3.5); Potassium 3.9 mmoL/L (3.5-5.1)
--- NOTE | 2018-05-05 07:30 | Pharmacy Consult Notes ---
[facility] Pharmacy VTE Monitoring - Patient Demographics Admission date: 05/04/18 Report Date: 05/05/18 Time: 07:30 Allergies/Adverse Reactions: Patient Allergies labetalol [LABETALOL] Allergy (Unknown, Verified 05/04/18 11:44) "MAKES ME CRAZY" Height: 1.65 m Weight: 86.455 kg - VTE Risk Labs: VTE Related Lab Results Hgb 12.3 g/dL (14.1-18.0) L 05/05/18 05:39 Hct 38.7 % (42.0-52.0) L 05/05/18 05:39 Plt Count 108 K/mm3 (142-424) L 05/05/18 05:39 BUN 42 mg/dL (7-18) H 05/05/18 05:39 Creatinine 2.00 mg/dL (0.70-1.30) H 05/05/18 05:39 Estimated Creat Clear 38 mL/min (50-200) 05/05/18 05:39 Was VTE Risk Assessment Performed: Yes VTE Score: 6 VTE Risk Level: Moderate Risk - Prophylaxis VTE Prophylaxis Ordered?: Yes Types of VTE Prophylaxis: TEDS Knee High, Pharmacological Location of Applied Device: Bilateral Lower Extremeties Pharmacologic Type: Other (ELIQUIS) - VTE Diagnosis Confirmed Treatment or plan recommended: Continue Current Treatment
--- NOTE | 2018-05-05 08:56 | Progress Note ---
Internal Medicine - PN: Subj *Date: 05/05/18 *Time: 08:54 Interval history: Patient states weakness Exam Vital signs and Labs for Last 24 Hours: Temp Pulse Resp BP Pulse Ox 97.6 F 70 14 107/54 L 96 05/05/18 08:18 05/05/18 08:18 05/05/18 08:18 05/05/18 08:18 05/05/18 08:18 Laboratory Results - last 24 hr 05/04/18 13:15: WBC 5.7, RBC 4.35 L, Hgb 12.2 L, Hct 41.1 L, MCV 94.5 H, MCH 28.1, MCHC 29.8 L, RDW 18.5 H, Plt Count 121 L, MPV 9.3, Neut % (Auto) 51.7, Lymph % (Auto) 32.2, [place] % (Auto) 5.9, Eos % (Auto) 8.8, Baso % (Auto) 1.3, Neut # (Auto) 2.9, Lymph # (Auto) 1.8, [place] # (Auto) 0.3, Eos # (Auto) 0.5 H, Baso # (Auto) 0.1 05/04/18 13:15: Sodium 141, Potassium 4.1, Chloride 102, Carbon Dioxide 31, Anion Gap 12.1, BUN 42 H, Creatinine 1.93 H, Estimated Creat Clear 39, Estimated GFR 34 L, Est GFR ( Amer) 41 L, Glucose 227 H, Calcium 9.2, Total Bilirubin 0.9, AST 11 L, ALT 16, Alkaline Phosphatase 102, Total Protein 7.1 D, Albumin 3.0 L, Globulin 4.1 H, Albumin/Globulin Ratio 0.7 L 05/04/18 13:15: TSH 3.27, Free T4 1.04 05/04/18 16:51: POC Glucose 178 H 05/04/18 19:49: POC Glucose 214 H 05/05/18 05:36: POC Glucose 182 H 05/05/18 05:39: WBC 6.1, RBC 4.12 L, Hgb 12.3 L, Hct 38.7 L, MCV 93.7, MCH 29.7, MCHC 31.7 L, RDW 18.6 H, Plt Count 108 L, MPV 8.5, Neut % (Auto) 47.6, Lymph % (Auto) 35.5, [place] % (Auto) 6.0, Eos % (Auto) 10.0, Baso % (Auto) 0.9, Neut # (Auto) 2.9, Lymph # (Auto) 2.2, [place] # (Auto) 0.4, Eos # (Auto) 0.6 H, Baso # (Auto) 0.1 05/05/18 05:39: Sodium 140, Potassium 3.9, Chloride 102, Carbon Dioxide 30, Anion Gap 11.9, BUN 42 H, Creatinine 2.00 H, Estimated Creat Clear 38, Estimated GFR 33 L, Est GFR ( Amer) 39 L, Glucose 210 H, Calcium 9.1, Triglycerides 67, Cholesterol 79 L, LDL Cholesterol 28, VLDL Cholesterol 13, HDL Cholesterol 38, Cholesterol/HDL Ratio 2.1 I & O for Last 24 hours: Intake & Output 05/02/18 05/03/18 05/04/18 05/05/18 11:59 11:59 11:59 11:59 Intake Total 654 / 654 Output Total 240 / 240 Balance 414 / 414 Weight 190 lb 9.6 oz - Constitutional no acute distress - *Routine HEENT Exam Head: Present: normocephalic Eye: Present: EOMI, PERRL ENT: Present: mucous membranes moist - *Routine Neck Exam Present: supple. Absent: lymphadenopathy - *Routine Respiratory Exam Present: CTA bilaterally - *Routine Cardiovascular Exam Present: RRR Comments: pacemaker - *Routine Abdominal Exam Present: soft, normoactive bowel sounds. Absent: tenderness - *Routine Extremities Exam Absent: cyanosis, clubbing, edema - *Routine Skin Exam Present: warm. Absent: rash - *Routine Neurological Exam Present: alert, oriented X3 Assessment and Plan - Assessment and plan all Dx Assessment and Plan for all problems:: Rounded with Dr. Leon all orders per Edward
--- NOTE | 2018-05-05 09:16 | Progress Note ---
Subjective Date: 05/05/18 Time: 09:12 Principal diagnosis: A. fib Interval history: 77 yo WM in bed in NAD. IV loading of Amiodarone in progress. Pt states he feels weak but denies any chest pain. Telemetry shows ventricular pacing at 70 bpm. Intermittent PVCs and atrial pacing noted. Telemetry appears to be showing underlying atrial fibrillation but EKG pending at this time. Exam Vital signs and Labs for Last 24 Hours: Temp Pulse Resp BP Pulse Ox 97.6 F 70 14 107/54 L 96 05/05/18 08:18 05/05/18 08:18 05/05/18 08:18 05/05/18 08:18 05/05/18 08:18 Laboratory Results - last 24 hr 05/04/18 13:15: WBC 5.7, RBC 4.35 L, Hgb 12.2 L, Hct 41.1 L, MCV 94.5 H, MCH 28.1, MCHC 29.8 L, RDW 18.5 H, Plt Count 121 L, MPV 9.3, Neut % (Auto) 51.7, Lymph % (Auto) 32.2, [place] % (Auto) 5.9, Eos % (Auto) 8.8, Baso % (Auto) 1.3, Neut # (Auto) 2.9, Lymph # (Auto) 1.8, [place] # (Auto) 0.3, Eos # (Auto) 0.5 H, Baso # (Auto) 0.1 05/04/18 13:15: Sodium 141, Potassium 4.1, Chloride 102, Carbon Dioxide 31, Anion Gap 12.1, BUN 42 H, Creatinine 1.93 H, Estimated Creat Clear 39, Estimated GFR 34 L, Est GFR ( Amer) 41 L, Glucose 227 H, Calcium 9.2, Total Bilirubin 0.9, AST 11 L, ALT 16, Alkaline Phosphatase 102, Total Protein 7.1 D, Albumin 3.0 L, Globulin 4.1 H, Albumin/Globulin Ratio 0.7 L 05/04/18 13:15: TSH 3.27, Free T4 1.04 05/04/18 16:51: POC Glucose 178 H 05/04/18 19:49: POC Glucose 214 H 05/05/18 05:36: POC Glucose 182 H 05/05/18 05:39: WBC 6.1, RBC 4.12 L, Hgb 12.3 L, Hct 38.7 L, MCV 93.7, MCH 29.7, MCHC 31.7 L, RDW 18.6 H, Plt Count 108 L, MPV 8.5, Neut % (Auto) 47.6, Lymph % (Auto) 35.5, [place] % (Auto) 6.0, Eos % (Auto) 10.0, Baso % (Auto) 0.9, Neut # (Auto) 2.9, Lymph # (Auto) 2.2, [place] # (Auto) 0.4, Eos # (Auto) 0.6 H, Baso # (Auto) 0.1 05/05/18 05:39: Sodium 140, Potassium 3.9, Chloride 102, Carbon Dioxide 30, Anion Gap 11.9, BUN 42 H, Creatinine 2.00 H, Estimated Creat Clear 38, Estimated GFR 33 L, Est GFR ( Amer) 39 L, Glucose 210 H, Calcium 9.1, Triglycerides 67, Cholesterol 79 L, LDL Cholesterol 28, VLDL Cholesterol 13, HDL Cholesterol 38, Cholesterol/HDL Ratio 2.1 I & O for Last 24 hours: Intake & Output 05/02/18 05/03/18 05/04/18 05/05/18 11:59 11:59 11:59 11:59 Intake Total 654 / 654 Output Total 240 / 240 Balance 414 / 414 Weight 190 lb 9.6 oz - *Routine Respiratory Exam Present: decreased breath sounds, CTA bilaterally. Absent: accessory muscle use, rales, rhonchi, wheezes - *Routine Cardiovascular Exam Present: RRR. Absent: murmur, gallop, rubs - *Routine Neurological Exam Present: alert, oriented X3, moving all extremities Progress Note: A&P (1) Atrial fibrillation Status: Chronic Current Visit: No (2) Systolic heart failure Status: Chronic Current Visit: No (3) Anasarca Status: Acute Current Visit: No (4) AICD (automatic cardioverter/defibrillator) present Status: Chronic Current Visit: No (5) CAD (coronary artery disease) Status: Chronic Current Visit: No Assessment and Plan for All Diagnoses:: 1. Patient to finish IV loading of amiodarone and then switch to oral amiodarone. 2. Daily EKGs 3. Anticipate cardioversion to restore sinus rhythm in 2 days if no conversion to sinus rhythm prior to that time. 4. Continue diuretics
--- NOTE | 2018-05-06 10:06 | Progress Note ---
Addendum entered and electronically signed by CHELY Simmons 05/06/18 15:28: Unsuccessful Cardioversion X 2. Will stop amiodarone. Continue bisoprolol 10 mg daily and eliquis 2.5 mg BID. Anticipate home in AM. Original Note: Subjective Date: 05/06/18 Time: 10:02 Principal diagnosis: A. fib Interval history: 77-year-old white male at bedside in no acute distress. Denies any chest pain, pressure or tightness. Still feels fatigued. Telemetry shows underlying atrial fibrillation with ventricular pacing at 70 bpm. Exam Vital signs and Labs for Last 24 Hours: Temp Pulse Resp BP Pulse Ox 97.7 F 70 17 106/46 L 98 05/06/18 08:00 05/06/18 08:00 05/06/18 08:00 05/06/18 08:00 05/06/18 08:00 Laboratory Results - last 24 hr 05/05/18 10:41: POC Glucose 221 H 05/05/18 17:03: POC Glucose 169 H 05/05/18 20:11: POC Glucose 200 H 05/06/18 06:52: POC Glucose 89 I & O for Last 24 hours: Intake & Output 05/03/18 05/04/18 05/05/18 05/06/18 11:59 11:59 11:59 11:59 Intake Total 654 / 654 885 / 885 Output Total 240 / 240 Balance 414 / 414 885 / 885 Weight 190 lb 9.6 oz 188 lb 7 oz - *Routine HEENT Exam Head: Present: normocephalic Eye: Present: EOMI, PERRL ENT: Present: mucous membranes moist - *Routine Respiratory Exam Present: CTA bilaterally. Absent: accessory muscle use, rales, rhonchi, wheezes - *Routine Cardiovascular Exam Present: RRR. Absent: murmur, gallop, rubs - *Routine Abdominal Exam Present: soft. Absent: tenderness, distended, guarding - *Routine Extremities Exam Absent: edema, calf tenderness - *Routine Neurological Exam Present: alert, oriented X3, moving all extremities Progress Note: A&P (1) A-fib Status: Acute Current Visit: Yes (2) Obesity (BMI 30.0-34.9) Status: Acute Current Visit: Yes (3) Renal insufficiency Status: Acute Current Visit: Yes (4) Thrombocytopenia Status: Acute Current Visit: Yes (5) Diabetes Status: Acute Current Visit: Yes Assessment and Plan for All Diagnoses:: 1. N.p.o. for now for anticipation of cardioversion later this morning/this afternoon. 2. Patient has received amiodarone loading and continues on amiodarone oral dosing. 3. He continues on Eliquis therapy. 4. Would anticipate that the patient could be discharged home tomorrow morning.
--- NOTE | 2018-05-06 10:09 | Progress Note ---
Internal Medicine - PN: Subj *Date: 05/06/18 *Time: 09:30 Exam Vital signs and Labs for Last 24 Hours: Temp Pulse Resp BP Pulse Ox 97.7 F 70 17 106/46 L 98 05/06/18 08:00 05/06/18 08:00 05/06/18 08:00 05/06/18 08:00 05/06/18 08:00 Laboratory Results - last 24 hr 05/05/18 10:41: POC Glucose 221 H 05/05/18 17:03: POC Glucose 169 H 05/05/18 20:11: POC Glucose 200 H 05/06/18 06:52: POC Glucose 89 I & O for Last 24 hours: Intake & Output 05/03/18 05/04/18 05/05/18 05/06/18 11:59 11:59 11:59 11:59 Intake Total 654 / 654 885 / 885 Output Total 240 / 240 Balance 414 / 414 885 / 885 Weight 190 lb 9.6 oz 188 lb 7 oz - Constitutional no acute distress - *Routine HEENT Exam Head: Present: normocephalic Eye: Present: EOMI, PERRL ENT: Present: mucous membranes moist - *Routine Neck Exam Present: supple. Absent: lymphadenopathy - *Routine Respiratory Exam Present: CTA bilaterally - *Routine Cardiovascular Exam Present: RRR Comments: pacemaker - *Routine Abdominal Exam Present: soft, normoactive bowel sounds. Absent: tenderness - *Routine Extremities Exam Absent: cyanosis, clubbing, edema - *Routine Skin Exam Present: warm. Absent: rash - *Routine Neurological Exam Present: alert, oriented X3 - Routine Psychiatric Exam Present: normal affect Assessment and Plan (1) A-fib Current visit: Yes Status: Acute Category: Medical Code(s): I48.91 - Unspecified atrial fibrillation (2) Obesity (BMI 30.0-34.9) Current visit: Yes Status: Acute Category: Medical Code(s): E66.9 - Obesity, unspecified (3) Renal insufficiency Current visit: Yes Status: Acute Category: Medical Code(s): N28.9 - Disorder of kidney and ureter, unspecified (4) Thrombocytopenia Current visit: Yes Status: Acute Category: Medical Code(s): D69.6 - Thrombocytopenia, unspecified (5) Diabetes Current visit: Yes Status: Acute Qualifiers: Diabetes mellitus type: type 2 Diabetes mellitus fci insulin use: with fci use Diabetes mellitus complication status: with unspecified complications Qualified Code(s): E11.8 - Type 2 diabetes mellitus with unspecified complications; Z79.4 - senior care (current) use of insulin Category: Medical Code(s): E11.9 - Type 2 diabetes mellitus without complications - Assessment and plan all Dx Assessment and Plan for all problems:: cardiovert today dc in am
[2018-05-06 11:17] LABS: Anion Gap 10.3 mEq/L (5-15); Calcium 9.1 mg/dL (8.5-10.1); Potassium 4.3 mmoL/L (3.5-5.1)
--- NOTE | 2018-05-06 13:31 | Procedure Note ---
[facility] Cardioversion Date: 05/06/18 Provider:: CHELY Simmons Procedure Performed:: Electrical cardioversion Diagnosis:: Persistent atrial fibrillation Procedure Summary:: After informed consent obtained, patient was given a combination of IV Versed and fentanyl for sedation. Vital signs including oxygen saturation were monitored continuously. Using the patient's internal defibrillator, patient received 2 shocks at 40 J each in an attempt to convert from atrial fibrillation to normal sinus rhythm. Each shock was unsuccessful. At this point the procedure was terminated. Patient did tolerate the procedure without complications. Complications:: None Conculsion:: Unsuccessful cardioversion attempt Patient will continue with anticoagulant therapy for persistent atrial fibrilla tion.
--- NOTE | 2018-05-07 08:20 | Progress Note ---
Subjective Date: 05/07/18 Time: 08:18 Principal diagnosis: A. fib Interval history: 77 yo WM in bed in NAD. Telemetry continues to show underlying a.fib with ventricular pacing at 70 bpm. Exam Vital signs and Labs for Last 24 Hours: Temp Pulse Resp BP Pulse Ox 97.8 F 70 20 119/52 L 97 05/07/18 07:14 05/07/18 07:14 05/07/18 07:14 05/07/18 07:14 05/07/18 07:14 Laboratory Results - last 24 hr 05/06/18 10:55: Sodium 138, Potassium 4.3, Chloride 102, Carbon Dioxide 30, Anion Gap 10.3, BUN 50 H, Creatinine 2.35 H, Estimated Creat Clear 32, Estimated GFR 27 L, Est GFR ( Amer) 33 L, Glucose 175 H, Calcium 9.1 05/06/18 11:04: POC Glucose 164 H 05/06/18 15:59: POC Glucose 179 H 05/06/18 20:47: POC Glucose 195 H 05/07/18 06:52: POC Glucose 101 I & O for Last 24 hours: Intake & Output 05/04/18 05/05/18 05/06/18 05/07/18 11:59 11:59 11:59 11:59 Intake Total 654 / 654 885 / 885 600 / 600 Output Total 240 / 240 Balance 414 / 414 885 / 885 600 / 600 Weight 190 lb 9.6 oz 188 lb 7 oz 187 lb 7 oz - *Routine HEENT Exam Head: Present: normocephalic Eye: Present: EOMI, PERRL ENT: Present: mucous membranes moist - *Routine Respiratory Exam Present: CTA bilaterally. Absent: accessory muscle use, rales, rhonchi, wheezes - *Routine Cardiovascular Exam Present: RRR. Absent: murmur, gallop, rubs - *Routine Extremities Exam Absent: edema, calf tenderness - *Routine Neurological Exam Present: alert, oriented X3, moving all extremities Progress Note: A&P (1) A-fib Status: Acute Current Visit: Yes (2) Obesity (BMI 30.0-34.9) Status: Acute Current Visit: Yes (3) Renal insufficiency Status: Acute Current Visit: Yes (4) Thrombocytopenia Status: Acute Current Visit: Yes (5) Diabetes Status: Acute Current Visit: Yes Assessment and Plan for All Diagnoses:: Home today. Meds: Bisoprolol 10 mg daily Imdur 120 mg daily Entresto 48/52 mg twice daily Lasix 80 mg in the morning and 40 mg in the evening Eliquis 2.5 mg twice daily Aspirin 81 mg daily Crestor 5 mg daily daily Potassium ER 20 mg daily Follow-up in our office next week
--- NOTE | 2018-05-07 09:26 | Discharge Summary ---
General - General Admission date:: 05/04/18 Discharge date: 05/07/18 HPI HPI: this wm was seen in card clinic today e patient is here for f/u on BiV AICD interrogation. The patient had a positive Corvue and his Lasix was increased. He was due here for f/u today. His last 2 AICD interrogations show that hae is BiV pacing 81% and 49%. He is BiV pacing less than the limit. Discussed this with Terry Atwood, with [facility], the patient has been in chronic afib for the last 2 months, whereas before he was having only intermittent afib. He recommended maybe increasing his BBs or trying an anti-arrhymthic so he will BiV pace more. Pt is having SOB and edema. This is better but edema has been so bad that he had anasarca. this has improved with increasing diuretics. Corvue is now negative. Afib is chronic. Pt on Eliquis for a/c. He is a candidate for Tikosyn for afib suppression to improve BiV pacing. Will have to admit the patient for Tikosyn initiation. Start Tikosyn 125 mcg BID for afib once hospitalized. If this does not convert pt by Friday, increase Tikosyn to 250 mcg BID. then consider cardioversion on if this does not convert the patient. CAD is stable. Denies CP or pressure. BP is excellent. LDL goal is < 55. [address] and followed in our clinic. Last d/l shows no events. Corvue is negative. a-pacing < 1% and BiV pacing 81%. AT/AF > 99%, on Eliquis. EKG is v-pacing with underlying afib. Hospital Course Hospital Course: echo:DOPPLER INTERROGATION: Doppler interrogation of the aortic, mitral and tricuspid valvular presence of mild aortic insufficiency, moderate mitral and tricuspid regurgitation, calculated right ventricular systolic pressure 42 mmHg consistent with moderate pulmonary hypertension, inferior vena cava is dilated without significant inspiratory collapse. Diastolic parameters are inconclusive. CONCLUSION: 1. Biatrial enlargement, dilated left ventricle, severely reduced left ventricular systolic function, visually estimated ejection fraction 45% with multiple segmental wall motion abnormality as described above suggestive of ischemic cardiomyopathy. 2. Mild aortic, moderate mitral and tricuspid regurgitation, calculated right ventricular systolic pressure is 42 mmHg consistent with moderate pulmonary hypertension, inferior vena cava is dilated without significant inspiratory collapse. 3. No significant pericardial effusion noted. chest x ray:IMPRESSION: Cardiomegaly with pacemaker present, prior CABG. Chronic changes right lung base. No acute finding dc home with med changes Objective Vital signs: Temp Pulse Resp BP Pulse Ox 97.8 F 70 20 119/52 L 97 05/07/18 07:14 05/07/18 07:14 05/07/18 07:14 05/07/18 07:14 05/07/18 07:14 no acute distress - *Routine HEENT Exam Head: Present: normocephalic Eye: Present: PERRL ENT: Present: mucous membranes moist - *Routine Respiratory Exam Present: CTA bilaterally - *Routine Cardiovascular Exam Present: RRR - *Routine Abdominal Exam Present: soft, normoactive bowel sounds - *Routine Extremities Exam Present: full ROM - *Routine Skin Exam Present: intact - *Routine Neurological Exam Present: alert, oriented X3 - Routine Psychiatric Exam Present: normal affect Results Labs on day of discharge: Labs from last 24 hours 05/07/18 05/06/18 05/06/18 06:52 20:47 15:59 Sodium Potassium Chloride Carbon Dioxide Anion Gap BUN Creatinine Estimated Creat Clear Estimated GFR Est GFR ( Amer) Glucose POC Glucose 101 195 H 179 H Calcium 05/06/18 05/06/18 11:04 10:55 Sodium 138 Potassium 4.3 Chloride 102 Carbon Dioxide 30 Anion Gap 10.3 BUN 50 H Creatinine 2.35 H Estimated Creat Clear 32 Estimated GFR 27 L Est GFR ( Amer) 33 L Glucose 175 H POC Glucose 164 H Calcium 9.1 - Additional Comments rounded with khris all orders per khris DS: Diagnosis - Discharge Diagnosis (1) A-fib Status: Acute (2) Obesity (BMI 30.0-34.9) Status: Acute (3) Renal insufficiency Status: Acute (4) Thrombocytopenia Status: Acute (5) Diabetes Status: Acute Discharge Plan - Patient Discharge Instructions ACTIVITY: Continue current activity DIET: continue same diet Patient Instructions: Automatic Cardioverter Defibrillator Implantation, Atrial Fibrillation, DI for Cardioversion, DI for Automatic Cardioverter/Defibrillator Implantation, DI for Atrial Fibrillation, DI for Muscle Weakness - Follow up Plan Follow up with: Brayden Mota MD [Staff Physician] - 1 week Disposition: Home, Self-Skilled Nursing Medications: Home Medications Medication Instructions Recorded Confirmed Type Gabapentin [Neurontin 300mg 300 mg PO HS 05/03/17 05/04/18 History capsule] Omeprazole [Omeprazole 20mg 20 mg PO HS 05/03/17 05/04/18 History Capsule] Tamsulosin HCl [Flomax 0.4mg 0.4 mg PO HS 05/03/17 05/04/18 History capsule] Allopurinol [Allopurinol 100mg 200 mg PO DAILY 05/06/17 05/04/18 History tablet] nitroglycerin 0.4 mg sublingual 0.4 mg SUBLINGUAL Q5M PRN 05/27/17 05/04/18 History tablet aspirin 325 mg tablet 325 mg PO DAILY 11/25/17 05/04/18 History Ezetimibe 10 mg PO DAILY 05/04/18 05/04/18 History Furosemide [Furosemide 40MG tAB] 80 mg PO DAILY 05/04/18 05/04/18 History Insulin Glarginivania,Hum.rec.anlog 55 unit SQ HS 05/04/18 05/04/18 History [Basaglar Cynthiaefraínpen U-100] Apixaban [Eliquis] 2.5 mg PO BID 30 Days #60 tab 05/07/18 Rx Bisoprolol Fumarate [Bisoprolol 10 mg PO DAILY #30 tab 05/07/18 Rx 10mg Tablet] Furosemide [Furosemide 40MG tAB] 40 mg PO HS 30 Days #30 tab 05/07/18 Rx Furosemide [Lasix 80mg tablet] 80 mg PO DAILY 30 Days #30 tab 05/07/18 Rx Isosorbide Mononitrate [Imdur 60mg 120 mg PO HS 30 Days #30 tab.er.24h 05/07/18 Rx ER tablet] Potassium Chloride [Klor-Con 10mEq 20 meq PO DAILY 30 Days #30 tab 05/07/18 Rx tab] Rosuvastatin Calcium [Crestor] 5 mg PO HS 30 Days #30 tab 05/07/18 Rx Sacubitril/Valsartan [Entresto 49 1 tab PO BID 30 Days #60 tab 05/07/18 Rx mg-51 mg Tablet] Prescriptions/Medication Reconciliation: New Aspirin [Aspirin 81mg EC Tab] 81 mg PO DAILY tablet. Insulin Kenia,Hum.rec.anlog [Insulin Glargine 100 Units/mL 3mL flexpen] 55 unit SQ HS insuln.pen Nicotine [Nicoderm 21mg/24hr patch] 21 mg TD DAILYP PRN patch.td24 PRN Reason: Nicotine Cravings Furosemide [Lasix 80mg tablet] 80 mg PO DAILY 30 Days #30 tab Continue nitroglycerin 0.4 mg sublingual tablet 0.4 mg SUBLINGUAL Q5M PRN PRN Reason: PAIN Tamsulosin HCl [Flomax 0.4mg capsule] 0.4 mg PO HS Omeprazole [Omeprazole 20mg Capsule] 20 mg PO HS Gabapentin [Neurontin 300mg capsule] 300 mg PO HS Allopurinol [Allopurinol 100mg tablet] 200 mg PO DAILY Furosemide [Furosemide 40MG tAB] 80 mg PO DAILY Apixaban [Eliquis] 2.5 mg PO BID 30 Days #60 tab Bisoprolol Fumarate [Bisoprolol 10mg Tablet] 10 mg PO DAILY #30 tab Furosemide [Furosemide 40MG tAB] 40 mg PO HS 30 Days #30 tab Isosorbide Mononitrate [Imdur 60mg ER tablet] 120 mg PO HS 30 Days #30 tab.er.24h Potassium Chloride [Klor-Con 10mEq tab] 20 meq PO DAILY 30 Days #30 tab Rosuvastatin Calcium [Crestor] 5 mg PO HS 30 Days #30 tab Sacubitril/Valsartan [Entresto 49 mg-51 mg Tablet] 1 tab PO BID 30 Days #60 tab Insulin Glargine,Hum.rec.anlog [Basaglar Kwikpen U-100] 55 unit SQ HS Discontinued aspirin 325 mg tablet 325 mg PO DAILY Ezetimibe 10 mg PO DAILY
== END 2018-05-07 11:35 | disposition home or self-care (01) | DRG 310 ==
LOC: 2ND 12:35
PROVIDERS: ADMIT Emergency Medicine; ATTEND Emergency Medicine
CPT/HCPCS: 36415; 71010; 71045; 80048; 80053; 80061; 82962; 84439; 84443; 85025; 92960; 93005; 93306; J0282; J7060

== ENCOUNTER 2018-07-27 07:52 | Inpatient (IN) ==
[2018-07-27 08:35] LABS: Basophils % 0.9 % (0.1-2.0); Eosinophils # 0.3 K/mm3 (0.0-0.4); Eosinophils % 6.3 % (0.1-12.0); Hematocrit 33.4 % (42.0-52.0); Lymphocytes # 1.9 K/mm3 (0.7-4.5); Lymphocytes % 37.5 % (10-50); Mean Corpuscular HGB Conc 32.8 g/dL (31.8-35.4); Mean Corpuscular Hemoglobin 31.2 pg (27.0-31.2); Mean Corpuscular Volume 95.1 fl (80-94); Mean Platelet Volume 7.9 fl (7.4-10.4); Monocytes # 0.3 K/mm3 (0.1-1.0); Monocytes % 5.9 % (1.7-9.3); Neutrophils # 2.5 K/mm3 (1.8-7.8); Neutrophils % 49.4 % (37.0-80.0); Platelet Count 114 K/mm3 (142-424); Red Blood Count 3.51 M/mm3 (4.60-6.20); Red Cell Distribution Width 17.8 % (11.5-17.5); White Blood Count 5.1 K/mm3 (4.8-10.8)
--- NOTE | 2018-07-27 08:36 | Emergency Department Note ---
ED Disposition Clinical Impression: Acute on chronic renal failure, Hx of severe congestive heart failure, Biventricular implantable cardioverter-defibrillator in situ, Dizziness, HHD (hypertensive heart disease), CAD (coronary artery disease), History of coronary artery bypass graft Disposition: Admitted as Observation Condition on Discharge: Fair Referrals: Chito Barrios [Primary Care Provider] - Time of Disposition: 12:03 - Critical Care Critical Care Time: No Attestation: On 07/27/18, the high probability of a clinically significant, sudden or life threatening deterioration of the following system(s) required my full and direct attention, intervention and personal management. The time I documented below is in addition to time spent performing reported procedures but includes the following listed in this critical care notation. Medical Decision Making - Medical Records Medical records reviewed: Yes: I reviewed the patient's medical records. - Anthony Inquiry Pt receiving controlled substance: No Anthony was queried for this patient: No Vital Signs: 07/27/18 07:55 07/27/18 08:23 07/27/18 09:40 Temperature 97.8 F Temperature Source Oral Pulse Rate [Right Radial] 70 70 70 Respiratory Rate 18 18 18 Blood Pressure [Right Arm] 107/62 L 101/56 L 101/49 L Blood Pressure Mean [Right Arm] 77 71 66 Blood Pressure Source [Right Arm] Automatic Cuff Automatic Cuff Automatic Cuff Blood Pressure Position [Right Arm] Sitting Sitting Sitting 02 Sat by Pulse Oximetry 99 97 97 Oxygen Delivery Method Room Air Room Air Room Air 07/27/18 10:59 07/27/18 11:20 Temperature Temperature Source Pulse Rate [Right Radial] 70 72 Respiratory Rate 20 18 Blood Pressure [Right Arm] 107/57 L 95/48 L Blood Pressure Mean [Right Arm] 73 63 Blood Pressure Source [Right Arm] Automatic Cuff Automatic Cuff Blood Pressure Position [Right Arm] Sitting Sitting 02 Sat by Pulse Oximetry 100 99 Oxygen Delivery Method Room Air Room Air - Lab Data Lab results reviewed: Yes: I reviewed the patient's lab results. Lab Results 07/27/18 08:21: WBC 5.1, RBC 3.51 L, Hgb 11.0 L, Hct 33.4 L, MCV 95.1 H, MCH 31.2, MCHC 32.8, RDW 17.8 H, Plt Count 114 L, MPV 7.9, Neut % (Auto) 49.4, Lymph % (Auto) 37.5, [place] % (Auto) 5.9, Eos % (Auto) 6.3, Baso % (Auto) 0.9, Neut # (Auto) 2.5, Lymph # (Auto) 1.9, [place] # (Auto) 0.3, Eos # (Auto) 0.3, Baso # (Auto) 0.0 07/27/18 08:21: Sodium 137, Potassium 4.8, Chloride 101, Carbon Dioxide 30, Anion Gap 10.8, BUN 80 H, Creatinine 3.14 H, Estimated Creat Clear 26, Estimated GFR 19 L*, Est GFR ( Amer) 23 L, Glucose 85, Calcium 8.8, Total Bilirubin 0.7, AST 14 L, ALT 17, Alkaline Phosphatase 108, Total Protein 7.0, Albumin 3.1 L, Globulin 3.9 H, Albumin/Globulin Ratio 0.8 L 07/27/18 08:21: Troponin I < 0.02, Lipase 89 07/27/18 11:08: Urine Color Yellow, Urine Appearance Clear, Urine pH 6.0, Ur Specific [place] 1.010, Urine Protein Negative, Urine Glucose (UA) Negative, Urine Ketones Negative, Urine Blood Negative, Urine Nitrate Negative, Urine Bilirubin Negative, Urine Urobilinogen 1.0, Ur Leukocyte Esterase Negative, Urine WBC Occasional, Ur Squamous Epith Cells Occasional, Urine Bacteria Trace Result diagrams: 07/27/18 08:21 07/27/18 08:21 Orders (Tests/Meds): ED MEDICATIONS Generic Name Dose Route Start Last Admin Trade Name Freq PRN Reason Stop Dose Admin Sodium Chloride 500 mls @ 250 mls/hr 07/27/18 11:15 07/27/18 11:21 Sod Chlor 0.9% 500ml Bag IV 08/26/18 11:14 250 mls/hr .Q2H DAJUAN Administration Discontinued Medications Generic Name Dose Route Start Last Admin Trade Name Freq PRN Reason Stop Dose Admin Sodium Chloride 500 mls @ 500 mls/hr 07/27/18 08:45 07/27/18 09:10 Sod Chlor 0.9% 500ml Bag IV 07/27/18 09:44 500 mls/hr .Q1H DAJUAN Administration Ondansetron HCl 4 mg 07/27/18 10:33 07/27/18 10:34 Zofran 4mg/2ml Vial IV 07/27/18 10:34 4 mg ONCE ONE Administration ORDERS Category Date Time Status CT abdomen pelvis wo con Stat Cat Scan 07/27/18 09:52 Taken - Physician Consults Physician Consulted: Analilia Time: 11:11 Reason -: Pt condition Comment/Response: cut back on lasix, cautiously hydrate given his history of severe CHF Additional Consult: yamile Time: 12:00 Reason -: Admission, Pt condition, Other (admit, slow hydration, recheck renal function) Additional Consult: [facility] / "no beds of any type" available General Adult HPI - General Chief complaint: Weakness Stated complaint: irregular blood pressure Time Seen by Provider: 07/27/18 08:31 Mode of Arrival: Wheelchair Source of Information: Patient Limitations: No Limitations Description of Symptoms (Recalled from ER Triage Doc. by RN): Pt reports has been checking in blood pressure every couple of hours this morning and his blood pressure "keeps going up and down". Pt reports hasn't been feeling well for the past couple days states "I've been weak and nervous feeling". - History of Present Illness HPI narrative: patient reports couple episodes n/v on friday. Mild R flank pain. No gross hematuria. appears fatigued, blood pressure is low. Called Dr. Barrios office, his last office visit blood pressures have been 135 systolic. Today, he is low and we'll hydrate cautiously and rule out obstruction by calculus as a reason for his worsening renal function - Related Data Home Medications Medication Instructions Recorded Confirmed Gabapentin [Neurontin 300mg 300 mg PO HS 05/03/17 07/27/18 capsule] Omeprazole [Omeprazole 20mg 20 mg PO HS 05/03/17 07/27/18 Capsule] Tamsulosin HCl [Flomax 0.4mg 0.4 mg PO HS 05/03/17 07/27/18 capsule] Allopurinol [Allopurinol 100mg 200 mg PO DAILY 05/06/17 07/27/18 tablet] nitroglycerin 0.4 mg sublingual 0.4 mg SUBLINGUAL Q5M PRN 05/27/17 07/27/18 tablet Apixaban [Eliquis] 2.5 mg PO BID 07/27/18 07/27/18 Aspirin [Aspirin 81mg EC Tab] 325 mg PO DAILY 07/27/18 07/27/18 Ezetimibe [Zetia] 10 mg PO DAILY 07/27/18 07/27/18 Furosemide [Furosemide 80mg Tab] 40 mg PO BID 07/27/18 07/27/18 Insulin Glargine,Hum.rec.anlog 55 unit SQ DAILY 07/27/18 07/27/18 [Lantus Insulin 100units/mL 10mL vial] Isosorbide Mononitrate [Isosorbide 120 mg PO DAILY 07/27/18 07/27/18 Mononitrate ER] Potassium Chloride [K-Tab ER 10 10 meq PO BID 07/27/18 07/27/18 mEq] Rosuvastatin Calcium 5 mg PO HS 07/27/18 07/27/18 Previous Rx's Medication Instructions Recorded bisoprolol fumarate 10 mg tablet 10 mg PO DAILY #30 tab 05/28/18 Allergies Allergy/AdvReac Type Severity Reaction Status Date / Time labetalol [LABETALOL] Allergy Unknown "MAKES ME Verified 06/29/18 09:29 LENA" [facility] History - Hepatitis A Screen Drug use history?: No High risk sexual behaviors?: No History of sexually transmitted infection?: No Currently employed?: No Childcare worker?: No Do you have indoor plumbing?: Yes Do you have electricity?: Yes Attestation statement:: This patient has been screened for Hepatitis A risk factors. I have reviewed the patient's past medical history: Yes Medical History: Reports:: Atrial Fibrillation, Congestive Heart Failure, Diabetes Mellitus Type 2, Gastroesophageal Reflux Disease(GERD), Home Oxygen, Hyperlipidemia, Hypertension, Internal Pacemaker, Kidney Stones (kidney disease), Myocardial Infarction (heart problems), Renal Insufficiency Denies:: Cancer, Diabetes Mellitus Type 1, MRSA, Seizures Other Medical History: Reports: Arthritis, Other (abn. psa,prostate biopsy, bleeding trouble, shortness of breath). Denies: Blood Transfusion Reaction Other Surgeries: Yes: CABG, Cardiac Surgery (), Cholecystectomy, Pacemaker, Other (gall bladder) Amputation: No Fractures: No Comment: [facility] 05/22/17 - Social History Smoking Status: Unknown if ever smoked #Yrs smoked (if former smoker): 30 Alcohol Intake: never Alcohol Intake Frequency:: other Substance Use Type: denies use Occupational Status: retired Housing: apartment Household Members: none - Psychiatric History Expresses thoughts of harming self/others: None Suicide Plan Description: No Plan Family Hx:: Cancer, Hyperlipidemia, Diabetes ROS Obtained: Yes All systems reviewed & no additional complaints - Constitutional Constitutional: Reports chills - Eyes Eyes: Reports blurry vision, Reports change in vision, Reports other (when he stands up) - Cardiovascular Cardiovascular: Denies chest pain, Denies chest pain at rest, Denies diaphoresis, Denies dyspnea - Respiratory Respiratory: No chest congestion, No cough - Gastrointestinal Gastrointestingal: Denies: abdominal pain - Musculoskeletal Musculoskeletal: Denies joint pain, Denies joint stiffness, Denies joint swelling - Integumentary/Breasts Skin/Breast: Denies rash, Denies skin pain - Neurologic Neurologic: Reports dizziness, Denies focal weakness, Denies tingling/numbness/burning sensations, Denies seizure-like activity, Denies sensory deficit, Denies syncope, Reports weakness, Reports other (with standing) - Hematologic/Lymphatic Henatologic/Lymphatic: Denies easy bleeding, Denies easy bruising Physical Exam - General General appearance: alert, in no apparent distress - Head Head exam: atraumatic, normocephalic, normal inspection - Eye Eye exam: Present: normal appearance, PERRL, EOMI - ENT ENT exam: Present: normal exam, normal oropharynx, mucous membranes moist, TM's normal bilaterally, normal external ear exam - Neck Neck exam: Present: normal inspection, full ROM, trachea midline. Absent: meningismus, lymphadenopathy - Respiratory Respiratory exam: Present: normal lung sounds bilaterally - Cardiovascular Cardiovascular exam: Present: regular rate, normal rhythm. Absent: JVD - Abdominal Exam Abdominal exam: Present: soft, normal bowel sounds. Absent: distention, tenderness, guarding - Extremities Exam Extremities exam: Present: normal inspection, full ROM, normal capillary refill. Absent: calf tenderness - Back Exam Back exam: Present: normal inspection. Absent: tenderness - Neurological Exam Neurological exam: Present: alert, oriented X3, other (very poor historian) - Skin Skin exam: Present: warm, dry, intact, normal color - Lymphatic Lymphatic Findings: no adenopathy
[2018-07-27 08:44] LABS: Albumin Level 3.1 gm/dL (3.4-5.0); Albumin/Globulin Ratio 0.8 (1.1-1.8); Anion Gap 10.8 mEq/L (5-15); Bilirubin,Total 0.7 mg/dL (0.2-1.0); Calcium 8.8 mg/dL (8.5-10.1); Globulin 3.9 gm/dl (1.3-3.2); Potassium 4.8 mmoL/L (3.5-5.1)
[2018-07-27 11:09] LABS: Lipase 89 u/L (73-393)
[2018-07-27 11:14] LABS: Microscopic, Urine URINE MICROSCOPIC (MICROSCOPIC)
[2018-07-27 11:16] LABS: Appearance,Urine CLEAR (Clear); Bilirubin,Urine Negative (Negative); Blood, Urine Negative (Negative); Color,Urine YELLOW (Yellow); Glucose,Urine (UA) Negative (Negative); Ketones,Urine Negative (Negative); Leukocyte Esterase,Urine Negative (Negative); Protein,Urine Negative (Negative)
[2018-07-27 11:27] LABS: Bacteria,Urine Trace /lpf; Squamous Epithelial Cell,Urine Occasional #/hpf (0-5); WBC,Urine Occasional #/hpf (0-3)
--- NOTE | 2018-07-27 13:51 | History & Physical Report ---
*Admission Date: 07/27/18 *Chief complaint: Orthostasis/fatigue *History of present illness: 77-year-old white male with multiple medical problems including cardiomyopathy/coronary disease with diminished ejection fraction status post ventricular pacemaker/defibrillator, chronic atrial fibrillation on anticoa gulation, chronic diabetes with insulin requirement and hyperlipidemia who has felt worse over the past couple of days with orthostasis type symptoms and came to the emergency department. He was found to have low blood pressure. Found to have creatinine elevation above 3 with evidence of prerenal azotemia with BUN of 80. He is on twice daily Lasix at home, and is to be admitted for IV fluids, hold p.o. Lasix and assess response of IV fluids. Currently denies pain, nausea or vomiting. Denies recent diarrhea or other fluid loss. [facility] History I have reviewed the patient's past medical history: Yes Medical History: Reports:: Atrial Fibrillation, Congestive Heart Failure, Diabetes Mellitus Type 2, Gastroesophageal Reflux Disease(GERD), Home Oxygen, Hyperlipidemia, Hypertension, Internal Pacemaker, Kidney Stones (kidney disease), Myocardial Infarction (heart problems), Renal Insufficiency Denies:: Cancer, Diabetes Mellitus Type 1, MRSA, Seizures *Have you ever received a pneumonia vaccine?: No *Have you received a flu vaccine this season?: Yes Other Medical History: Reports: Arthritis, Other (abn. psa,prostate biopsy, bleeding trouble, shortness of breath). Denies: Blood Transfusion Reaction Other Surgeries: Yes: CABG, Cardiac Surgery (), Cholecystectomy, Pacemaker, Other (gall bladder) Amputation: No Fractures: No - *Social History Smoking Status: Unknown if ever smoked #Yrs smoked (if former smoker): 30 Alcohol Intake: never Alcohol Intake Frequency:: other Substance Use Type: denies use *Occupational Status:: retired Housing: apartment Household Members: none *Travel in the last 8 weeks: None - Psychiatric History Expresses thoughts of harming self/others: None Suicide Plan Description: No Plan Family Hx:: Cancer, Hyperlipidemia, Diabetes Review of Systems - Review of Systems Review of systems:: pertinent systems reviewed and negative unless documented below Other than symptoms in HPI has no cardiac or pulmonary symptoms. Denies GI or symptoms. - *Neurologic Reports dizziness, Reports weakness, Reports other (with standing), Denies localized weakness, Denies tingling/numbness/burning sensations, Denies seizure- like activity, Denies sensory deficit, Denies fainting Meds Home Medications Medication Instructions Recorded Confirmed Type Gabapentin [Neurontin 300mg 300 mg PO HS 05/03/17 07/27/18 History capsule] Omeprazole [Omeprazole 20mg 20 mg PO HS 05/03/17 07/27/18 History Capsule] Tamsulosin HCl [Flomax 0.4mg 0.4 mg PO HS 05/03/17 07/27/18 History capsule] Allopurinol [Allopurinol 100mg 200 mg PO DAILY 05/06/17 07/27/18 History tablet] nitroglycerin 0.4 mg sublingual 0.4 mg SUBLINGUAL Q5M PRN 05/27/17 07/27/18 History tablet bisoprolol fumarate 10 mg tablet 10 mg PO DAILY #30 tab 05/28/18 07/27/18 Rx Apixaban [Eliquis] 2.5 mg PO BID 07/27/18 07/27/18 History Aspirin [Aspirin 81mg EC Tab] 325 mg PO DAILY 07/27/18 07/27/18 History Ezetimibe [Zetia] 10 mg PO DAILY 07/27/18 07/27/18 History Furosemide [Furosemide 80mg Tab] 40 mg PO BID 07/27/18 07/27/18 History Insulin Glargine,Hum.rec.anlog 55 unit SQ DAILY 07/27/18 07/27/18 History [Lantus Insulin 100units/mL 10mL vial] Isosorbide Mononitrate [Isosorbide 120 mg PO DAILY 07/27/18 07/27/18 History Mononitrate ER] Potassium Chloride [K-Tab ER 10 10 meq PO BID 07/27/18 07/27/18 History mEq] Rosuvastatin Calcium 5 mg PO HS 07/27/18 07/27/18 History Allergies Allergy/AdvReac Type Severity Reaction Status Date / Time labetalol [LABETALOL] Allergy Unknown "MAKES ME Verified 06/29/18 09:29 CRAZY" Exam Vital signs and Labs for Last 24 Hours: Temp Pulse Resp BP Pulse Ox 97.4 F L 70 18 91/48 L 100 07/27/18 12:31 07/27/18 12:31 07/27/18 12:31 07/27/18 12:31 07/27/18 12:17 Laboratory Results - last 24 hr 07/27/18 08:21: WBC 5.1, RBC 3.51 L, Hgb 11.0 L, Hct 33.4 L, MCV 95.1 H, MCH 31.2, MCHC 32.8, RDW 17.8 H, Plt Count 114 L, MPV 7.9, Neut % (Auto) 49.4, Lymph % (Auto) 37.5, [place] % (Auto) 5.9, Eos % (Auto) 6.3, Baso % (Auto) 0.9, Neut # (Auto) 2.5, Lymph # (Auto) 1.9, [place] # (Auto) 0.3, Eos # (Auto) 0.3, Baso # (Auto) 0.0 07/27/18 08:21: Sodium 137, Potassium 4.8, Chloride 101, Carbon Dioxide 30, Anion Gap 10.8, BUN 80 H, Creatinine 3.14 H, Estimated Creat Clear 26, Estimated GFR 19 L*, Est GFR ( Amer) 23 L, Glucose 85, Calcium 8.8, Total Bilirubin 0.7, AST 14 L, ALT 17, Alkaline Phosphatase 108, Total Protein 7.0, Albumin 3.1 L, Globulin 3.9 H, Albumin/Globulin Ratio 0.8 L 07/27/18 08:21: Troponin I < 0.02, Lipase 89 07/27/18 11:08: Urine Color Yellow, Urine Appearance Clear, Urine pH 6.0, Ur Specific [place] 1.010, Urine Protein Negative, Urine Glucose (UA) Negative, Urine Ketones Negative, Urine Blood Negative, Urine Nitrate Negative, Urine Bilirubin Negative, Urine Urobilinogen 1.0, Ur Leukocyte Esterase Negative, Urine WBC Occasional, Ur Squamous Epith Cells Occasional, Urine Bacteria Trace I & O for Last 24 hours: Intake & Output 07/25/18 07/26/18 07/27/18 07/28/18 11:59 11:59 11:59 11:59 Intake Total 1000 / 1000 Balance 1000 / 1000 Weight 209 lb 213 lb 3 oz Narrative: Patient appears somewhat older than his stated age but is pleasant and talkative. ENT exam clear. Dry oropharynx noted. Heart rate irregular, previous murmur noted. Anterior lung [place] are clear, abdomen soft, Extremities are warm and well-perfused but he has poor skin turgor. He is globally weak but has no focal neurologic examination deficits. Assessment and Plan (1) Diabetes mellitus type 2, insulin dependent Current visit: Yes Status: Acute Category: Medical Code(s): E11.9 - Type 2 diabetes mellitus without complications; Z79.4 - termite technician (current) use of insulin Cutdown dose of Lantus tonight given his probably improved diet in the hospital and to avoid risk of hypoglycemia. (2) Acute on chronic renal failure Current visit: Yes Status: Acute Category: Medical Code(s): N17.9 - Acute kidney failure, unspecified; N18.9 - Chronic kidney disease, unspecified Appears to be prerenal. Hold Lasix, cautious IV fluids. (3) Hx of severe congestive heart failure Current visit: Yes Status: Acute Category: Medical Code(s): Z86.79 - Personal history of other diseases of the circulatory system Lower dose of IV fluid administration. Watch fluid status carefully. Labs in the morning. (4) Biventricular implantable cardioverter-defibrillator in situ Current visit: Yes Status: Chronic Category: Medical Code(s): Z95.810 - Presence of automatic (implantable) cardiac defibrillator
--- NOTE | 2018-07-28 07:09 | Progress Note ---
Internal Medicine - PN: Subj *Date: 07/28/18 *Time: 08:29 Interval history: Patient did well overnight. Remained afebrile. Denies chest pain, nausea vomiting, dysuria. Having good urine output voiding independently. Ambulating to the bathroom. Tolerating regular diet this morning. No complaints on interview. Exam Vital signs and Labs for Last 24 Hours: Temp Pulse Resp BP Pulse Ox 97.6 F 71 20 91/46 L 95 07/28/18 03:48 07/28/18 03:48 07/28/18 03:48 07/28/18 03:48 07/28/18 03:48 Laboratory Results - last 24 hr 07/27/18 08:21: WBC 5.1, RBC 3.51 L, Hgb 11.0 L, Hct 33.4 L, MCV 95.1 H, MCH 31.2, MCHC 32.8, RDW 17.8 H, Plt Count 114 L, MPV 7.9, Neut % (Auto) 49.4, Lymph % (Auto) 37.5, [place] % (Auto) 5.9, Eos % (Auto) 6.3, Baso % (Auto) 0.9, Neut # (Auto) 2.5, Lymph # (Auto) 1.9, [place] # (Auto) 0.3, Eos # (Auto) 0.3, Baso # (Auto) 0.0 07/27/18 08:21: Sodium 137, Potassium 4.8, Chloride 101, Carbon Dioxide 30, Anion Gap 10.8, BUN 80 H, Creatinine 3.14 H, Estimated Creat Clear 26, Estimated GFR 19 L*, Est GFR ( Amer) 23 L, Glucose 85, Calcium 8.8, Total Bilirubin 0.7, AST 14 L, ALT 17, Alkaline Phosphatase 108, Total Protein 7.0, Albumin 3.1 L, Globulin 3.9 H, Albumin/Globulin Ratio 0.8 L 07/27/18 08:21: Troponin I < 0.02, Lipase 89 07/27/18 11:08: Urine Color Yellow, Urine Appearance Clear, Urine pH 6.0, Ur Specific [place] 1.010, Urine Protein Negative, Urine Glucose (UA) Negative, Urine Ketones Negative, Urine Blood Negative, Urine Nitrate Negative, Urine Bilirubin Negative, Urine Urobilinogen 1.0, Ur Leukocyte Esterase Negative, Urine WBC Occasional, Ur Squamous Epith Cells Occasional, Urine Bacteria Trace 07/27/18 20:27: POC Glucose 125 H I & O for Last 24 hours: Intake & Output 07/25/18 07/26/18 07/27/18 07/28/18 23:59 23:59 23:59 23:59 Intake Total 2539 / 2539 946 / 946 Output Total 1275 / 1275 300 / 300 Balance 1264 / 1264 646 / 646 Weight 96.7 kg 99.138 kg Narrative: Pleasant cooperative, sitting upright in bed on exam and interview. ENT exam clear. Moist mucous membranes. Heart rate irregular, previous murmur noted. Anterior lung [place] are clear, abdomen soft, Extremities are warm and well-perfused, Globally weak but has no focal neurologic examination deficits. Assessment and Plan (1) Diabetes mellitus type 2, insulin dependent Current visit: Yes Status: Acute Category: Medical Code(s): E11.9 - Type 2 diabetes mellitus without complications; Z79.4 - terminal system operator (current) use of insulin (2) Acute on chronic renal failure Current visit: Yes Status: Acute Category: Medical Code(s): N17.9 - Acute kidney failure, unspecified; N18.9 - Chronic kidney disease, unspecified (3) Hx of severe congestive heart failure Current visit: Yes Status: Acute Category: Medical Code(s): Z86.79 - Personal history of other diseases of the circulatory system (4) Biventricular implantable cardioverter-defibrillator in situ Current visit: Yes Status: Chronic Category: Medical Code(s): Z95.810 - Presence of automatic (implantable) cardiac defibrillator (5) CKD (chronic kidney disease), stage IV Current visit: Yes Status: Chronic Category: Medical Code(s): N18.4 - Chronic kidney disease, stage 4 (severe) (6) Heart failure with reduced ejection fraction Current visit: Yes Status: Chronic Qualifiers: Heart failure chronicity: chronic Qualified Code(s): I50.22 - Chronic systolic (congestive) heart failure Category: Medical Code(s): I50.20 - Unspecified systolic (congestive) heart failure - Assessment and plan all Dx Assessment and Plan for all problems:: Kidney function slowly improving. Continue fluid rehydration. Tolerating p.o. intake. Continues to require inpatient management at this time. Repeat lab work in the morning
--- NOTE | 2018-07-28 07:25 | Pharmacy Consult Notes ---
[facility] Pharmacy VTE Monitoring - Patient Demographics Admission date: 07/28/18 Report Date: 07/28/18 Time: 07:25 Allergies/Adverse Reactions: Patient Allergies labetalol [LABETALOL] Allergy (Unknown, Verified 06/29/18 09:29) "MAKES ME CRAZY" Height: 1.65 m Weight: 99.138 kg Patient Problems: Current Active Problems (Updated 07/27/18 @ 13:51 by Kervin Rodríguez MD) Acute on chronic renal failure (Acute) Hx of severe congestive heart failure (Acute) Diabetes mellitus type 2, insulin dependent (Acute) Biventricular implantable cardioverter-defibrillator in situ (Chronic) Dizziness (Acute) HHD (hypertensive heart disease) (Chronic) History of coronary artery bypass graft (Chronic) CAD (coronary artery disease) (Chronic) - VTE Risk Labs: VTE Related Lab Results Hgb 11.0 g/dL (14.1-18.0) L 07/27/18 08:21 Hct 33.4 % (42.0-52.0) L 07/27/18 08:21 Plt Count 114 K/mm3 (142-424) L 07/27/18 08:21 BUN 80 mg/dL (7-18) H 07/27/18 08:21 Creatinine 3.14 mg/dL (0.70-1.30) H 07/27/18 08:21 Estimated Creat Clear 26 mL/min (50-200) 07/27/18 08:21 Was VTE Risk Assessment Performed: Yes VTE Score: 7 VTE Risk Level: Moderate Risk Clinical Trial Participant: No - Prophylaxis Types of VTE Prophylaxis: TEDS Knee High, Pharmacological Pharmacologic Type: Other (eliquis)
[2018-07-28 07:36] LABS: Basophils # 0.1 K/mm3 (0-0.2); Basophils % 1.1 % (0.1-2.0); Eosinophils # 0.4 K/mm3 (0.0-0.4); Eosinophils % 7.6 % (0.1-12.0); Hematocrit 33.4 % (42.0-52.0); Hemoglobin 10.5 g/dL (14.1-18.0); Lymphocytes # 1.3 K/mm3 (0.7-4.5); Lymphocytes % 29.2 % (10-50); Mean Corpuscular HGB Conc 31.6 g/dL (31.8-35.4); Mean Corpuscular Volume 98.3 fl (80-94); Mean Platelet Volume 8.9 fl (7.4-10.4); Monocytes # 0.3 K/mm3 (0.1-1.0); Monocytes % 5.9 % (1.7-9.3); Neutrophils # 2.5 K/mm3 (1.8-7.8); Neutrophils % 56.1 % (37.0-80.0); Platelet Count 98 K/mm3 (142-424); Red Cell Distribution Width 17.7 % (11.5-17.5); White Blood Count 4.5 K/mm3 (4.8-10.8)
[2018-07-28 07:43] LABS: Calcium 8.6 mg/dL (8.5-10.1)
[2018-07-29 07:32] LABS: Anion Gap 11.8 mEq/L (5-15); Calcium 8.5 mg/dL (8.5-10.1); Potassium 4.8 mmoL/L (3.5-5.1)
[2018-07-29 07:37] LABS: Basophils % 0.9 % (0.1-2.0); Eosinophils # 0.4 K/mm3 (0.0-0.4); Eosinophils % 8.2 % (0.1-12.0); Hematocrit 33.8 % (42.0-52.0); Hemoglobin 10.5 g/dL (14.1-18.0); Lymphocytes # 1.2 K/mm3 (0.7-4.5); Lymphocytes % 28.5 % (10-50); Mean Corpuscular Hemoglobin 30.6 pg (27.0-31.2); Mean Corpuscular Volume 98.8 fl (80-94); Mean Platelet Volume 8.6 fl (7.4-10.4); Monocytes # 0.3 K/mm3 (0.1-1.0); Monocytes % 6.7 % (1.7-9.3); Neutrophils # 2.4 K/mm3 (1.8-7.8); Neutrophils % 55.7 % (37.0-80.0); Platelet Count 102 K/mm3 (142-424); Red Blood Count 3.42 M/mm3 (4.60-6.20); Red Cell Distribution Width 17.8 % (11.5-17.5); White Blood Count 4.3 K/mm3 (4.8-10.8)
--- NOTE | 2018-07-29 08:36 | Discharge Summary ---
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 He was found to have low blood pressure. Found to have creatinine elevation above 3 with evidence of prerenal azotemia with BUN of 80. He is on twice daily Lasix at home, and is to be admitted for IV fluids, hold p.o. Lasix and assess response of IV fluids. Currently denies pain, nausea or vomiting. Denies recent diarrhea or other fluid loss. Hospital Course Hospital Course: Patient was admitted, diuretics and Entresto were held, patient was given cautious IV fluids and his BUN and creatinine improved in a stepwise fashion. No evidence of fluid overload was noted. This morning patient was feeling much better. Creatinine has improved and he is getting up and doing things by himself without significant dyspnea or orthostasis. Plan will be to discharge home. We will continue to hold diuretics. Restart Entresto, he will come see his regular physician on Friday, I have ordered labs to be done that morning to assess whether or not other medications need to be adjusted. Objective Vital signs: Temp Pulse Resp BP Pulse Ox 98.6 F 77 18 106/46 L 95 07/29/18 07:25 07/29/18 07:25 07/29/18 08:00 07/29/18 07:25 07/29/18 08:00 Narrative: Patient is awake, alert. Pleasant and talkative. Oriented x3. Lungs are clear, good air movement, heart rate regular with previously noted murmur. Abdomen soft and nontender. Trace ankle edema. Able to move all extremity as well. No neurologic deficits. Results Labs on day of discharge: Labs from last 24 hours 07/29/18 07/29/18 07/28/18 07:18 07:18 20:54 WBC 4.3 L RBC 3.42 L Hgb 10.5 L Hct 33.8 L MCV 98.8 H MCH 30.6 MCHC 31.0 L RDW 17.8 H Plt Count 102 L MPV 8.6 Neut % (Auto) 55.7 Lymph % (Auto) 28.5 [place] % (Auto) 6.7 Eos % (Auto) 8.2 Baso % (Auto) 0.9 Neut # (Auto) 2.4 Lymph # (Auto) 1.2 [place] # (Auto) 0.3 Eos # (Auto) 0.4 Baso # (Auto) 0.0 Sodium 140 Potassium 4.8 Chloride 104 Carbon Dioxide 29 Anion Gap 11.8 BUN 60 H Creatinine 2.24 H Estimated Creat Clear 39 Estimated GFR 29 L Est GFR ( Amer) 35 L D Glucose 144 H D POC Glucose 170 H Calcium 8.5 DS: Diagnosis - Discharge Diagnosis (1) Diabetes mellitus type 2, insulin dependent Status: Chronic (2) Acute on chronic renal failure Status: Acute (3) Hx of severe congestive heart failure Status: Chronic (4) Biventricular implantable cardioverter-defibrillator in situ Status: Chronic (5) CKD (chronic kidney disease), stage IV Status: Chronic (6) Heart failure with reduced ejection fraction Status: Chronic Discharge Plan - Patient Discharge Instructions ACTIVITY: Continue current activity DIET: continue same diet Patient Instructions: DI for Orthostatic Hypotension, Acute Renal Failure, DI for Hypotension - Follow up Plan Follow up with: Chito Barrios [Primary Care Provider] - 07/31/18 Disposition: Home, Self-Long-Term Medications: Home Medications Medication Instructions Recorded Confirmed Type Gabapentin [Neurontin 300mg 300 mg PO HS 05/03/17 07/27/18 History capsule] Omeprazole [Omeprazole 20mg 20 mg PO HS 05/03/17 07/27/18 History Capsule] Tamsulosin HCl [Flomax 0.4mg 0.4 mg PO HS 05/03/17 07/27/18 History capsule] Allopurinol [Allopurinol 100mg 200 mg PO DAILY 05/06/17 07/27/18 History tablet] nitroglycerin 0.4 mg sublingual 0.4 mg SUBLINGUAL Q5M PRN 05/27/17 07/27/18 History tablet bisoprolol fumarate 10 mg tablet 10 mg PO DAILY #30 tab 05/28/18 07/27/18 Rx Apixaban [Eliquis] 2.5 mg PO BID 07/27/18 07/27/18 History Ezetimibe [Zetia] 10 mg PO DAILY 07/27/18 07/27/18 History Furosemide [Furosemide 80mg Tab] 80 mg PO BID 07/27/18 07/28/18 History Insulin Glargine,Hum.rec.anlog 45 unit SQ HS 07/27/18 07/28/18 History [Lantus Insulin 100units/mL 10mL vial] Isosorbide Mononitrate [Isosorbide 120 mg PO DAILY 07/27/18 07/27/18 History Mononitrate ER] Potassium Chloride [K-Tab ER 10 10 meq PO BID 07/27/18 07/27/18 History mEq] Rosuvastatin Calcium 5 mg PO HS 07/27/18 07/27/18 History Aspirin [Aspirin 325mg Tab] 325 mg PO DAILY 07/28/18 07/28/18 History Sacubitril/Valsartan [Entresto 49 1 tab PO DAILY 07/28/18 07/28/18 History mg-51 mg Tablet] Prescriptions/Medication Reconciliation: Continued nitroglycerin 0.4 mg sublingual tablet 0.4 mg SUBLINGUAL Q5M PRN PRN Reason: Chest Pain bisoprolol fumarate 10 mg tablet 10 mg PO DAILY #30 tab Tamsulosin HCl [Flomax 0.4mg capsule] 0.4 mg PO HS Omeprazole [Omeprazole 20mg Capsule] 20 mg PO HS Gabapentin [Neurontin 300mg capsule] 300 mg PO HS Allopurinol [Allopurinol 100mg tablet] 200 mg PO DAILY Apixaban [Eliquis] 2.5 mg PO BID Rosuvastatin Calcium 5 mg PO HS Insulin Glargine,Hum.rec.anlog [Lantus Insulin 100units/mL 10mL vial] 45 unit SQ HS Aspirin [Aspirin 325mg Tab] 325 mg PO DAILY Sacubitril/Valsartan [Entresto 49 mg-51 mg Tablet] 1 tab PO DAILY Isosorbide Mononitrate [Isosorbide Mononitrate ER] 120 mg PO DAILY Discontinued Furosemide [Furosemide 80mg Tab] 80 mg PO BID Potassium Chloride [K-Tab ER 10 mEq] 10 meq PO BID Ezetimibe [Zetia] 10 mg PO DAILY Other Amb Orders: Basic Metabolic Panel Time Frame: 07/31/18, Facility: [facility], Location: Laboratory
== END 2018-07-29 10:06 | disposition home or self-care (01) | DRG 683 ==
LOC: ER 07:52 → 2ND 07:52
PROVIDERS: ADMIT Internal Medicine Adolescent Medicine; ATTEND Internal Medicine Adolescent Medicine
DX: I25.10 Atherosclerotic heart disease of native coronary artery without angina pectoris; Z79.899 Other long term (current) drug therapy; I42.9 Cardiomyopathy, unspecified; Z95.1 Presence of aortocoronary bypass graft; K21.9 Gastro-esophageal reflux disease without esophagitis; Z79.4 Long term (current) use of insulin; N17.9 Acute kidney failure, unspecified; Z79.02 Long term (current) use of antithrombotics/antiplatelets; Z99.81 Dependence on supplemental oxygen; Z79.82 Long term (current) use of aspirin; Z87.891 Personal history of nicotine dependence; Z87.442 Personal history of urinary calculi; E78.5 Hyperlipidemia, unspecified; Z88.8 Allergy status to other drugs, medicaments and biological substances; I48.2 Chronic atrial fibrillation; I13.0 Hypertensive heart and chronic kidney disease with heart failure and stage 1 through stage 4 chronic kidney disease, or unspecified chronic kidney disease; Z95.810 Presence of automatic (implantable) cardiac defibrillator; I50.22 Chronic systolic (congestive) heart failure; Z90.49 Acquired absence of other specified parts of digestive tract; N18.4 Chronic kidney disease, stage 4 (severe); Z83.438 Family history of other disorder of lipoprotein metabolism and other lipidemia; E11.22 Type 2 diabetes mellitus with diabetic chronic kidney disease; I25.2 Old myocardial infarction; Z83.3 Family history of diabetes mellitus; Z80.9 Family history of malignant neoplasm, unspecified
CPT/HCPCS: J2405

== ENCOUNTER → 2018-07-31 09:13 | Outpatient (CLI) | payer MEDICARE, MEDICAID, SELFPAY ==
[2018-07-31 10:18] LABS: Anion Gap 13.5 mEq/L (5-15); Blood Urea Nitrogen 46 mg/dL (7-18); Calcium 9.1 mg/dL (8.5-10.1); Carbon Dioxide 29 mmol/L (21.0-32.0); Chloride 108 mmol/L (98-107); Estimated Glomerular Filt Rate 37 ml/min (>60); GFR (African American) 44 ML/MIN (>60); Glucose 147 mg/dL (74-106); Potassium 4.5 mmoL/L (3.5-5.1); Sodium 146 mmol/L (136-145)
== END ==
PROVIDERS: Visit Provider Internal Medicine Adolescent Medicine
DX: N17.9 Acute kidney failure, unspecified (principal); N18.9 Chronic kidney disease, unspecified
CPT/HCPCS: 36415; 80048

== ENCOUNTER 2018-09-28 03:54 | Observation (INO) ==
[2018-09-28 04:29] LABS: Basophils # 0.1 K/mm3 (0-0.2); Eosinophils # 0.5 K/mm3 (0.0-0.4); Eosinophils % 8.4 % (0.1-12.0); Hematocrit 35.3 % (42.0-52.0); Hemoglobin 11.2 g/dL (14.1-18.0); Lymphocytes # 2.4 K/mm3 (0.7-4.5); Lymphocytes % 39.3 % (10-50); Mean Corpuscular HGB Conc 31.7 g/dL (31.8-35.4); Mean Corpuscular Volume 95.2 fl (80-94); Mean Platelet Volume 9.4 fl (7.4-10.4); Monocytes # 0.4 K/mm3 (0.1-1.0); Monocytes % 6.9 % (1.7-9.3); Neutrophils # 2.7 K/mm3 (1.8-7.8); Neutrophils % 44.3 % (37.0-80.0); Platelet Count 104 K/mm3 (142-424); Red Blood Count 3.71 M/mm3 (4.60-6.20); White Blood Count 6.2 K/mm3 (4.8-10.8)
[2018-09-28 04:48] LABS: Alanine Aminotransferase 18 U/L (12-78); Albumin Level 3.2 gm/dL (3.4-5.0); Albumin/Globulin Ratio 0.8 (1.1-1.8); Alkaline Phosphatase 92 U/L (46-116); Amylase 92 U/L (25-115); Anion Gap 10.5 mEq/L (5-15); Aspartate Amino Transferase 22 U/L (15-37); Bilirubin,Total 0.8 mg/dL (0.2-1.0); Calcium 9.6 mg/dL (8.5-10.1); Carbon Dioxide 34 mmol/L (21.0-32.0); Chloride 100 mmol/L (98-107); Globulin 3.8 gm/dl (1.3-3.2); Glucose 77 mg/dL (74-106); Sodium 139 mmol/L (136-145)
[2018-09-28 04:51] LABS: Blood Urea Nitrogen 81 mg/dL (7-18); C-Reactive Protein < 0.2 mg/L (0.0-0.9)
[2018-09-28 04:53] LABS: Erythrocyte Sedimentation Rate 78 mm/hr (0-20)
--- NOTE | 2018-09-28 05:45 | Emergency Department Note ---
ED Disposition Clinical Impression: AICD (automatic cardioverter/defibrillator) present, Hyperkalemia Acute renal failure Qualifiers: Acute renal failure type: unspecified Qualified Code(s): N17.9 - Acute kidney failure, unspecified CHF (congestive heart failure) Qualifiers: Heart failure type: unspecified Heart failure chronicity: acute on chronic Qualified Code(s): I50.9 - Heart failure, unspecified Disposition: Admitted as Observation Condition on Discharge: Fair Referrals: Chito Barrios [Primary Care Provider] - - Critical Care Critical Care Time: No Attestation: On 09/28/18, the high probability of a clinically significant, sudden or life threatening deterioration of the following system(s) required my full and direct attention, intervention and personal management. The time I documented below is in addition to time spent performing reported procedures but includes the following listed in this critical care notation. Medical Decision Making - Medical Records Medical records reviewed: Yes: I reviewed the patient's medical records. - Anthony Inquiry Pt receiving controlled substance: No Vital Signs: 09/28/18 04:02 09/28/18 05:43 09/28/18 06:46 Temperature 98.0 F Temperature Source Oral Pulse Rate [Right] 70 68 72 Respiratory Rate 17 18 18 Blood Pressure [Right Arm] 118/57 L 113/58 L 104/52 L Blood Pressure Mean [Right Arm] 77 76 69 Blood Pressure Source [Right Arm] Automatic Cuff Blood Pressure Position [Right Arm] Supine Supine 02 Sat by Pulse Oximetry 94 L 94 L 91 L Oxygen Delivery Method Room Air Room Air 09/28/18 06:48 Temperature Temperature Source Pulse Rate [Right] 73 Respiratory Rate 18 Blood Pressure [Right Arm] 104/52 L Blood Pressure Mean [Right Arm] 69 Blood Pressure Source [Right Arm] Blood Pressure Position [Right Arm] 02 Sat by Pulse Oximetry 93 L Oxygen Delivery Method - Lab Data Lab results reviewed: Yes: I reviewed the patient's lab results. Lab Results 09/28/18 04:06: WBC 6.2, RBC 3.71 L, Hgb 11.2 L, Hct 35.3 L, MCV 95.2 H, MCH 30.2, MCHC 31.7 L, RDW 17.0, Plt Count 104 L, MPV 9.4, Neut % (Auto) 44.3, Lymph % (Auto) 39.3, [place] % (Auto) 6.9, Eos % (Auto) 8.4, Baso % (Auto) 1.0, Neut # (Auto) 2.7, Lymph # (Auto) 2.4, [place] # (Auto) 0.4, Eos # (Auto) 0.5 H, Baso # (Auto) 0.1, ESR 78 H 09/28/18 04:06: Sodium 139, Potassium 5.5 H, Chloride 100, Carbon Dioxide 34 H, Anion Gap 10.5, BUN 81 H, Creatinine 4.03 H, Estimated Creat Clear 21, Estimated GFR 14 L*, Est GFR ( Amer) 18 L*, Glucose 77, Calcium 9.6, Total Bilirubin 0.8, AST 22, ALT 18, Alkaline Phosphatase 92, Troponin I < 0.02, C- Reactive Protein < 0.2, Total Protein 7.0, Albumin 3.2 L, Globulin 3.8 H, Albumin/Globulin Ratio 0.8 L, Amylase 92, Lipase 86 09/28/18 04:06: Lactate 1.2 09/28/18 06:12: Urine Color Yellow, Urine Appearance Clear, Urine pH 7.5, Ur Specific [place] 1.010, Urine Protein Trace, Urine Glucose (UA) Negative, Urine Ketones Negative, Urine Blood Negative, Urine Nitrate Negative, Urine Bilirubin Negative, Urine Urobilinogen 0.2, Ur Leukocyte Esterase Negative, Urine RBC Occasional, Urine WBC 10-20, Ur Squamous Epith Cells 5-10, Ur Transition Epith Cell Occ, Urine Bacteria 1+, Urine Mucus Trace Result diagrams: 09/28/18 04:06 09/28/18 04:06 Orders (Tests/Meds): ED MEDICATIONS Generic Name Dose Route Start Last Admin Trade Name Freq PRN Reason Stop Dose Admin Sodium Chloride 1,000 mls @ 999 mls/hr 09/28/18 04:15 09/28/18 04:18 Sod Chlor 0.9% 1000ml Bag IV 09/28/18 05:15 999 mls/hr .Q1H1M DAJUAN Administration Sodium Chloride 10 ml 09/28/18 04:11 Saline Flush 10ml Syringe IV 10/28/18 04:10 NEEDED PRN Maintain IV Site Discontinued Medications Generic Name Dose Route Start Last Admin Trade Name Freq PRN Reason Stop Dose Admin Famotidine 20 mg 09/28/18 04:11 09/28/18 04:18 Pepcid 20mg/2ml Vial IV 09/28/18 04:12 20 mg ONCE ONE Administration Ketorolac Tromethamine 30 mg 09/28/18 04:11 09/28/18 04:18 Toradol 30mg/Ml Vial IV 09/28/18 04:12 30 mg ONCE ONE Administration Metoclopramide HCl 10 mg 09/28/18 04:11 09/28/18 04:18 Reglan 10mg/2ml Vial IVP 09/28/18 04:12 10 mg ONCE ONE Administration Ondansetron HCl 4 mg 09/28/18 04:11 09/28/18 04:18 Zofran 4mg/2ml Vial IV 09/28/18 04:12 4 mg ONCE ONE Administration Sodium Chloride 8 ml 09/28/18 04:11 09/28/18 04:17 Saline Flush 10ml Syringe IV 09/28/18 04:12 8 ml ONCE ONE Administration ORDERS Category Date Time Status CT abdomen pelvis wo con Stat Cat Scan 09/28/18 04:[address] head/brain wo con Stat Cat Scan 09/28/18 04:08 Taken XR chest 2V Stat Exams 09/28/18 04:08 Taken BNP [B-Type Natriuretic Peptide] Stat Lab 09/28/18 04:07 Received Blood Culture Stat Micro 09/28/18 04:19 Received Urine Culture Stat Micro 09/28/18 06:12 Received ECG Request by /Allan Stat Y 09/28/18 04:08 Ordered - Radiology Data #1 Image(s): Chest Image Reviewed: Yes I reviewed the patient's radiology image Preliminary Findings: Abnormal (cm) - CT Data CT Scan: Head, Abdomen, Pelvis Time Received: 06:[address] Reviewed: Yes: I have viewed the radiologist's interpretation Preliminary Findings: Abnormal (see report- stable ) - ECG Data Tracing #1 Arrhythmias present: other (paced) - Physician Consults Physician Consulted: pravin Reason -: Admission Weakness HPI - General Chief complaint: Weakness Stated complaint: Nausea;aching;loss of balance Time Seen by Provider: 09/28/18 04:40 Mode of Arrival: Wheelchair Source of Information: Patient, Relative, Medical Record Limitations: No Limitations Description of Symptoms (Recalled from ER Triage Doc. by RN): Pt states he has been nausous, shaky, and had mid abdominal pain for about a week. Pt son states he has been confused at some periods, and has had loss of balance. - History of Present Illness HPI Narrative: pt with weakness and not feeling well over the last week - no fever or rash - has hx of chf -no vomiting MD Complaint: generalized weakness Onset (ago): day(s) Duration: constant Location: generalized Severity: moderate Associated symptoms: denies other symptoms - Related Data Home Medications Medication Instructions Recorded Confirmed Gabapentin [Neurontin 300mg 300 mg PO HS 05/03/17 09/28/18 capsule] Omeprazole [Omeprazole 20mg 20 mg PO HS 05/03/17 09/28/18 Capsule] Tamsulosin HCl [Flomax 0.4mg 0.4 mg PO HS 05/03/17 09/28/18 capsule] Allopurinol [Allopurinol 100mg 200 mg PO DAILY 05/06/17 09/28/18 tablet] nitroglycerin 0.4 mg sublingual 0.4 mg SUBLINGUAL Q5M PRN 05/27/17 09/28/18 tablet Apixaban [Eliquis 2.5mg tab] 2.5 mg PO BID 07/27/18 09/28/18 Insulin Glargine,Hum.rec.anlog 45 unit SQ HS 07/27/18 09/28/18 [Lantus Insulin 100units/mL 10mL vial] Isosorbide Mononitrate [Isosorbide 120 mg PO DAILY 07/27/18 09/28/18 Mononitrate ER] Rosuvastatin Calcium 5 mg PO HS 07/27/18 09/28/18 Aspirin [Aspirin 325mg Tab] 325 mg PO DAILY 07/28/18 09/28/18 Sacubitril/Valsartan [Entresto 49 1 tab PO DAILY 07/28/18 09/28/18 mg-51 mg Tablet] Ezetimibe 10 mg PO DAILY 09/28/18 09/28/18 Furosemide [Lasix 40mg tab] 40 mg PO BID 09/28/18 09/28/18 Potassium Chloride [Micro-K 10mEq 10 meq PO BID 09/28/18 09/28/18 cap] Previous Rx's Medication Instructions Recorded bisoprolol fumarate 10 mg tablet 10 mg PO DAILY #30 tab 05/28/18 Allergies Allergy/AdvReac Type Severity Reaction Status Date / Time labetalol [LABETALOL] Allergy Unknown "MAKES ME Verified 06/29/18 09:29 CRAZY" [facility] History - Hepatitis A Screen Drug use history?: No High risk sexual behaviors?: No History of sexually transmitted infection?: No Currently employed?: No Childcare worker?: No Do you have indoor plumbing?: Yes Do you have electricity?: Yes Attestation statement:: This patient has been screened for Hepatitis A risk factors. I have reviewed the patient's past medical history: Yes Medical History: Reports:: Atrial Fibrillation, Congestive Heart Failure, Diabetes Mellitus Type 2, Gastroesophageal Reflux Disease(GERD), Home Oxygen, Hyperlipidemia, Hypertension, Internal Pacemaker, Kidney Stones (kidney disease), Myocardial Infarction (heart problems), Renal Insufficiency Denies:: Cancer, Diabetes Mellitus Type 1, MRSA, Seizures Other Medical History: Reports: Arthritis, Other (abn. psa,prostate biopsy, bleeding trouble, shortness of breath). Denies: Blood Transfusion Reaction Other Surgeries: Yes: CABG, Cardiac Surgery (), Cholecystectomy, Pace maker, Other (gall bladder) Amputation: No Fractures: No Comment: [facility] 05/22/17 - Social History Smoking Status: Former smoker #Yrs smoked (if former smoker): 30 Alcohol Intake: never Alcohol Intake Frequency:: other Substance Use Type: denies use Occupational Status: retired Housing: apartment Household Members: none Family Hx:: Cancer, Diabetes, Hypertension ROS Obtained: Yes All systems reviewed & no additional complaints - Constitutional Constitutional: Denies fever(s) - Eyes Eyes: Denies change in vision - ENT Ears, Nose, Mouth, and Throat: Denies sore throat - Cardiovascular Cardiovascular: Denies chest pain, Reports dyspnea - Respiratory Respiratory: No cough - Gastrointestinal Gastrointestingal: Reports: abdominal pain, nausea. Denies: vomiting - Genitourinary Male Genitourinary: Denies hematuria - Musculoskeletal Musculoskeletal: Denies joint pain, Denies joint swelling - Integumentary/Breasts Skin/Breast: Denies rash - Neurologic Neurologic: Denies seizure-like activity Physical Exam - General General appearance: alert, obese - Head Head exam: normocephalic - Eye Eye exam: Present: PERRL, EOMI. Absent: scleral icterus - ENT ENT exam: Present: mucous membranes dry - Neck Neck exam: Present: trachea midline - Respiratory Respiratory exam: Present: other (dec bs bilat ). Absent: respiratory distress - Cardiovascular Cardiovascular exam: Present: regular rate, systolic murmur, +S4, Pacemaker w/paced rhythm - Abdominal Exam Abdominal exam: Present: soft. Absent: tenderness, guarding, rebound, rigidity - Extremities Exam Extremities exam: Present: pedal edema. Absent: calf tenderness - Neurological Exam Neurological exam: Present: alert, CN II-XII intact - Psychiatric Psychiatric exam: Present: normal affect - Skin Skin exam: Absent: rash
[2018-09-28 06:16] LABS: Microscopic, Urine URINE MICROSCOPIC (MICROSCOPIC)
[2018-09-28 06:17] LABS: Appearance,Urine CLEAR (Clear); Bilirubin,Urine Negative (Negative); Blood, Urine Negative (Negative); Color,Urine YELLOW (Yellow); Glucose,Urine (UA) Negative (Negative); Ketones,Urine Negative (Negative); Leukocyte Esterase,Urine Negative (Negative); PH,Urine 7.5 (5.0-8.5); Protein,Urine TRACE (Negative); Urobilinogen,Urine 0.2 EU/dl (0.2)
[2018-09-28 06:36] LABS: Bacteria,Urine 1+ /lpf; Mucus,Urine Trace /lpf; RBC,Urine Occasional #/hpf (0-3)
[2018-09-28 06:37] LABS: Transitional Epi Cells,Urine OCC #/lpf (0-3)
--- NOTE | 2018-09-28 08:37 | Pharmacy Consult Notes ---
[facility] Pharmacy VTE Monitoring - Patient Demographics Admission date: 09/28/18 Report Date: 09/28/18 Time: 08:37 Allergies/Adverse Reactions: Patient Allergies labetalol [LABETALOL] Allergy (Unknown, Verified 06/29/18 09:29) "MAKES ME CRAZY" Height: 1.57 m Weight: 94.064 kg Patient Problems: Current Active Problems (Updated 09/28/18 @ 07:03 by Yeison Leon MD) Acute renal failure (Acute) Hyperkalemia (Acute) AICD (automatic cardioverter/defibrillator) present (Chronic) CHF (congestive heart failure) (Chronic) - VTE Risk Labs: VTE Related Lab Results Hgb 11.2 g/dL (14.1-18.0) L 09/28/18 04:06 Hct 35.3 % (42.0-52.0) L 09/28/18 04:06 Plt Count 104 K/mm3 (142-424) L 09/28/18 04:06 BUN 81 mg/dL (7-18) H 09/28/18 04:06 Creatinine 4.03 mg/dL (0.70-1.30) H 09/28/18 04:06 Estimated Creat Clear 21 mL/min (50-200) 09/28/18 04:06 Clinical Trial Participant: No - Prophylaxis VTE Prophylaxis Ordered?: Yes Types of VTE Prophylaxis: TEDS Knee High
--- NOTE | 2018-09-28 09:05 | History & Physical Report ---
*Admission Date: 09/28/18 *Chief complaint: Nausea/weakness/dehydration *History of present illness: 78-year-old white male, patient of Dr. Chito Barrios, who presented to the emergency department with 2 weeks of feeling poorly and not eating. He reports some nausea, but no vomiting even though he is apparently tried to induce emesis, and also denies diarrhea. He saw Dr. Barrios on September 18 for his regular checkup and apparently was feeling well and his most recent laboratory studies are also unremarkable. Apparently after that he felt unwell, stopped eating and has been not eating well for the past 2 weeks. Presented to the emergency department with fatigue, lethargy, nausea and was found to have significant kidney injury with creatinine greater than 4, hyperkalemia and was admitted to hospital for IV fluids and further diagnostic testing. [facility] History I have reviewed the patient's past medical history: Yes Medical History: Reports:: Arrhythmia, Atrial Fibrillation, Congestive Heart Failure, Coronary Artery Disease, Diabetes Mellitus Type 2, Gastroesophageal Reflux Disease(GERD), Home Oxygen, Hyperlipidemia, Hypertension, Internal Pacemaker (defibrillator), Kidney Stones (kidney disease), Myocardial Infarction, Peripheral Artery Disease, Peripheral Vascular Disease, Renal Insufficiency Denies:: Cancer, Diabetes Mellitus Type 1, MRSA, Seizures *Have you ever received a pneumonia vaccine?: Yes *Have you received a flu vaccine this season?: Yes Other Medical History: Reports: Anemia, Arthritis, Cataracts, Other (abn. psa,prostate biopsy, bleeding trouble, shortness of breath). Denies: Blood Transfusion Reaction Laterality Cases: Bilateral: Partial Knee Replacement Other Surgeries: Yes: Angiogram, CABG, Cardiac Catheterization, Cardiac Surgery, Cholecystectomy, Colonoscopy, EGD, Open Heart Surgery, Pacemaker (defibrillator), Ureter Stent, Other (gall bladder) Amputation: No Fractures: No - *Social History Educational Level: Attended Grade School Smoking Status: Former smoker #Yrs smoked (if former smoker): 30 Alcohol Intake: former Alcohol Intake Frequency:: other Substance Use Type: denies use *Occupational Status:: retired Housing: apartment Household Members: none *Travel in the last 8 weeks: None Family Hx:: Cancer, Diabetes, Hypertension Review of Systems - Review of Systems Review of systems:: pertinent systems reviewed and negative unless documented below Other than GI positivity patient denies chest pain, respiratory, orthopedic complaints or edema. Neurologic negative. - *Neurologic Denies seizure-like activity Meds Home Medications Medication Instructions Recorded Confirmed Type Gabapentin [Neurontin 300mg 300 mg PO HS 05/03/17 09/28/18 History capsule] Omeprazole [Omeprazole 20mg 20 mg PO HS 05/03/17 09/28/18 History Capsule] Tamsulosin HCl [Flomax 0.4mg 0.4 mg PO HS 05/03/17 09/28/18 History capsule] Allopurinol [Allopurinol 100mg 200 mg PO DAILY 05/06/17 09/28/18 History tablet] nitroglycerin 0.4 mg sublingual 0.4 mg SUBLINGUAL Q5M PRN 05/27/17 09/28/18 History tablet bisoprolol fumarate 10 mg tablet 10 mg PO DAILY #30 tab 05/28/18 09/28/18 Rx Apixaban [Eliquis 2.5mg tab] 2.5 mg PO BID 07/27/18 09/28/18 History Insulin Glargine,Hum.rec.anlog 45 unit SQ HS 07/27/18 09/28/18 History [Lantus Insulin 100units/mL 10mL vial] Isosorbide Mononitrate [Isosorbide 120 mg PO DAILY 07/27/18 09/28/18 History Mononitrate ER] Rosuvastatin Calcium 5 mg PO HS 07/27/18 09/28/18 History Aspirin [Aspirin 325mg Tab] 325 mg PO DAILY 07/28/18 09/28/18 History Sacubitril/Valsartan [Entresto 49 1 tab PO DAILY 07/28/18 09/28/18 History mg-51 mg Tablet] Ezetimibe 10 mg PO DAILY 09/28/18 09/28/18 History Furosemide [Lasix 40mg tab] 40 mg PO BID 09/28/18 09/28/18 History Potassium Chloride [Micro-K 10mEq 10 meq PO BID 09/28/18 09/28/18 History cap] Allergies Allergy/AdvReac Type Severity Reaction Status Date / Time labetalol [LABETALOL] Allergy Unknown "MAKES ME Verified 06/29/18 09:29 CRAZY" Exam Vital signs and Labs for Last 24 Hours: Temp Pulse Resp BP Pulse Ox 97.7 F 70 20 101/66 L 93 L 09/28/18 08:00 09/28/18 08:00 09/28/18 08:00 09/28/18 08:00 09/28/18 08:28 Laboratory Results - last 24 hr 09/28/18 04:06: WBC 6.2, RBC 3.71 L, Hgb 11.2 L, Hct 35.3 L, MCV 95.2 H, MCH 30.2, MCHC 31.7 L, RDW 17.0, Plt Count 104 L, MPV 9.4, Neut % (Auto) 44.3, Lymph % (Auto) 39.3, [place] % (Auto) 6.9, Eos % (Auto) 8.4, Baso % (Auto) 1.0, Neut # (Auto) 2.7, Lymph # (Auto) 2.4, [place] # (Auto) 0.4, Eos # (Auto) 0.5 H, Baso # (Auto) 0.1, ESR 78 H 09/28/18 04:06: Sodium 139, Potassium 5.5 H, Chloride 100, Carbon Dioxide 34 H, Anion Gap 10.5, BUN 81 H, Creatinine 4.03 H, Estimated Creat Clear 21, Estimated GFR 14 L*, Est GFR ( Amer) 18 L*, Glucose 77, Calcium 9.6, Total Bilirubin 0.8, AST 22, ALT 18, Alkaline Phosphatase 92, Troponin I < 0.02, C- Reactive Protein < 0.2, Total Protein 7.0, Albumin 3.2 L, Globulin 3.8 H, Albumin/Globulin Ratio 0.8 L, Amylase 92, Lipase 86 09/28/18 04:06: Lactate 1.2 09/28/18 04:07: B-Natriuretic Peptide 476 H 09/28/18 04:07: TSH 3.60 09/28/18 06:12: Urine Color Yellow, Urine Appearance Clear, Urine pH 7.5, Ur Specific [place] 1.010, Urine Protein Trace, Urine Glucose (UA) Negative, Urine Ketones Negative, Urine Blood Negative, Urine Nitrate Negative, Urine Bilirubin Negative, Urine Urobilinogen 0.2, Ur Leukocyte Esterase Negative, Urine RBC Occasional, Urine WBC 10-20, Ur Squamous Epith Cells 5-10, Ur Transition Epith Cell Occ, Urine Bacteria 1+, Urine Mucus Trace I & O for Last 24 hours: Intake & Output 09/25/18 09/26/18 09/27/18 09/28/18 11:59 11:59 11:59 11:59 Weight 207 lb 6 oz Narrative: Patient is pleasant, oriented x3, no stigmata of liver disease, no icteric sclera. Is alert and oriented x3. States that he is Manuel feeling better after a bag of IV fluids in the ER. Oropharynx dry but clear, flat neck veins. Lungs clear, abdomen soft except for some minimal tenderness with deep palpation in the left lower quadrant. Heart rate regular without murmurs. Neurologic exam intact and normal including cranial nerves Assessment and Plan (1) Enteritis Current visit: Yes Status: Acute Category: Medical Code(s): K52.9 - Noninfective gastroenteritis and colitis, unspecified Questionable infectious source, if diarrhea will check for C. difficile. (2) Diverticulosis Current visit: Yes Status: Acute Category: Medical Code(s): K57.90 - Diverticulosis of intestine, part unspecified, without perforation or abscess without bleeding No evidence of infection at this point. Watch closely. CT scan report reviewed (3) Acute renal failure Current visit: Yes Status: Acute Qualifiers: Acute renal failure type: unspecified Qualified Code(s): N17.9 - Acute kidney failure, unspecified Category: Medical Code(s): N17.9 - Acute kidney failure, unspecified Acute kidney injury seems to be from volume depletion. Continue IV fluids. Check labs tomorrow (4) Hyperkalemia Current visit: Yes Status: Acute Category: Medical Code(s): E87.5 - Hyperkalemia Probably from volume depletion and AMY, hydration as noted, check labs tomorrow
[2018-09-29 09:20] LABS: Basophils # 0.1 K/mm3 (0-0.2); Eosinophils # 0.5 K/mm3 (0.0-0.4); Hematocrit 35.5 % (42.0-52.0); Hemoglobin 10.9 g/dL (14.1-18.0); Lymphocytes # 1.6 K/mm3 (0.7-4.5); Lymphocytes % 28.7 % (10-50); Mean Corpuscular HGB Conc 30.6 g/dL (31.8-35.4); Mean Corpuscular Volume 98.5 fl (80-94); Mean Platelet Volume 9.2 fl (7.4-10.4); Monocytes # 0.3 K/mm3 (0.1-1.0); Neutrophils % 55.3 % (37.0-80.0); Platelet Count 88 K/mm3 (142-424); Red Cell Distribution Width 16.8 % (11.5-17.5); White Blood Count 5.4 K/mm3 (4.8-10.8)
[2018-09-29 09:24] LABS: Calcium 8.7 mg/dL (8.5-10.1)
[2018-09-30 07:11] LABS: Calcium 8.9 mg/dL (8.5-10.1)
[2018-09-30 07:12] LABS: Basophils % 0.5 % (0.1-2.0); Eosinophils # 0.7 K/mm3 (0.0-0.4); Eosinophils % 11.2 % (0.1-12.0); Hematocrit 33.2 % (42.0-52.0); Hemoglobin 10.2 g/dL (14.1-18.0); Lymphocytes # 1.9 K/mm3 (0.7-4.5); Lymphocytes % 30.3 % (10-50); Mean Corpuscular HGB Conc 30.8 g/dL (31.8-35.4); Mean Corpuscular Volume 96.4 fl (80-94); Mean Platelet Volume 8.4 fl (7.4-10.4); Monocytes # 0.4 K/mm3 (0.1-1.0); Monocytes % 6.6 % (1.7-9.3); Neutrophils # 3.2 K/mm3 (1.8-7.8); Neutrophils % 51.5 % (37.0-80.0); Platelet Count 95 K/mm3 (142-424); Red Blood Count 3.45 M/mm3 (4.60-6.20); Red Cell Distribution Width 16.9 % (11.5-17.5); White Blood Count 6.2 K/mm3 (4.8-10.8)
--- NOTE | 2018-09-30 08:24 | Discharge Summary ---
General - General Admission date:: 09/28/18 Discharge date: 09/30/18 HPI HPI: 78-year-old white male, patient of Dr. Chito Barrios, who presented to the emergency department with 2 weeks of feeling poorly and not eating. He reports some nausea, but no vomiting even though he is apparently tried to induce emesis, and also denies diarrhea. He saw Dr. Barrios on September 18 for his regular checkup and apparently was feeling well and his most recent laboratory studies are also unremarkable. Apparently after that he felt unwell, stopped eating and has been not eating well for the past 2 weeks. Presented to the emergency department with fatigue, lethargy, nausea and was found to have significant kidney injury with creatinine greater than 4, hyperkalemia and was admitted to hospital for IV fluids and further diagnostic testing. Hospital Course Hospital Course: Patient was admitted to hospital, found to have significant acute kidney injury, hyperkalemia and also some diarrhea. C. difficile titers were done on stool which were positive. Patient was started on vancomycin therapy orally, in addition to IV fluids for his aforementioned electrolyte disturbances and acute kidney injury. Over the next couple of days his creatinine improved in a stepwise fashion and his hyperkalemia resolved. This morning creatinine is down to 2.88, vastly improved over admission, patient is tolerating full diet and has minimal runny stools. He feels good he is asymptomatic and wishes to be discharged. Plan will be to discharge home on oral vancomycin. Instructed to push fluids but hold off on dairy products for the next couple of days. We will follow his creatinine and potassium with lab orders in 2 days from now on October 02, and he will follow-up in our office for a post hospital check on Friday. Objective Vital signs: Temp Pulse Resp BP Pulse Ox 97.7 F 72 17 126/44 L 100 09/30/18 08:00 09/30/18 08:00 09/30/18 08:00 09/30/18 08:00 09/30/18 08:00 Narrative: Patient is pleasant and talkative, lungs are clear bilaterally, heart rate regular. Alert, oriented x3. No focal peripheral deficits. Abdomen soft and nontender. Results Labs on day of discharge: Labs from last 24 hours 09/30/18 09/30/18 09/30/18 06:20 06:20 05:43 WBC 6.2 RBC 3.45 L Hgb 10.2 L Hct 33.2 L MCV 96.4 H MCH 29.7 MCHC 30.8 L RDW 16.9 Plt Count 95 L MPV 8.4 Neut % (Auto) 51.5 Lymph % (Auto) 30.3 [place] % (Auto) 6.6 Eos % (Auto) 11.2 Baso % (Auto) 0.5 Neut # (Auto) 3.2 Lymph # (Auto) 1.9 [place] # (Auto) 0.4 Eos # (Auto) 0.7 H Baso # (Auto) 0.0 Sodium 138 Potassium 5.0 Chloride 105 Carbon Dioxide 28 Anion Gap 10.0 BUN 58 H Creatinine 2.88 H D Estimated Creat Clear 29 Estimated GFR 21 L Est GFR ( Amer) 26 L D Glucose 147 H D POC Glucose 153 H Calcium 8.9 09/29/18 09/29/18 09/29/18 20:08 16:31 11:41 WBC RBC Hgb Hct MCV MCH MCHC RDW Plt Count MPV Neut % (Auto) Lymph % (Auto) [place] % (Auto) Eos % (Auto) Baso % (Auto) Neut # (Auto) Lymph # (Auto) [place] # (Auto) Eos # (Auto) Baso # (Auto) Sodium Potassium Chloride Carbon Dioxide Anion Gap BUN Creatinine Estimated Creat Clear Estimated GFR Est GFR ( Amer) Glucose POC Glucose 225 H 124 H 186 H Calcium 09/29/18 09/29/18 09:03 09:03 WBC 5.4 RBC 3.60 L Hgb 10.9 L Hct 35.5 L MCV 98.5 H MCH 30.1 MCHC 30.6 L RDW 16.8 Plt Count 88 L MPV 9.2 Neut % (Auto) 55.3 Lymph % (Auto) 28.7 [place] % (Auto) 6.0 Eos % (Auto) 9.0 Baso % (Auto) 1.0 Neut # (Auto) 3.0 Lymph # (Auto) 1.6 [place] # (Auto) 0.3 Eos # (Auto) 0.5 H Baso # (Auto) 0.1 Sodium 141 Potassium 5.0 Chloride 104 Carbon Dioxide 32 Anion Gap 10.0 BUN 76 H Creatinine 3.88 H Estimated Creat Clear 21 Estimated GFR 15 L* Est GFR ( Amer) 18 L* Glucose 196 H POC Glucose Calcium 8.7 Preliminary micro results at discharge 09/28/18 04:19 Blood Culture - Preliminary Blood NO GROWTH AFTER 48 HOURS 09/28/18 04:19 Blood Culture - Preliminary Blood NO GROWTH AFTER 48 HOURS DS: Diagnosis - Discharge Diagnosis (1) Enteritis Status: Acute (2) Diverticulosis Status: Acute (3) Acute renal failure Status: Acute (4) Hyperkalemia Status: Resolved (5) C. difficile colitis Status: Acute Problem details: [id number] Discharge Plan - Patient Discharge Instructions ACTIVITY: Continue current activity DIET: continue same diet Additional Instructions: Hold off on dairy products for 48 hours - Follow up Plan Follow up with: Hardik Decker MD [Staff Physician] - 10/05/18 Disposition: Home, Self-Longterm Medications: Home Medications Medication Instructions Recorded Confirmed Type Gabapentin [Neurontin 300mg 300 mg PO HS 05/03/17 09/28/18 History capsule] Omeprazole [Omeprazole 20mg 20 mg PO HS 05/03/17 09/28/18 History Capsule] Tamsulosin HCl [Flomax 0.4mg 0.4 mg PO HS 05/03/17 09/28/18 History capsule] Allopurinol [Allopurinol 100mg 200 mg PO DAILY 05/06/17 09/28/18 History tablet] nitroglycerin 0.4 mg sublingual 0.4 mg SUBLINGUAL Q5M PRN 05/27/17 09/28/18 History tablet bisoprolol fumarate 10 mg tablet 10 mg PO DAILY #30 tab 05/28/18 09/28/18 Rx Apixaban [Eliquis 2.5mg tab] 2.5 mg PO BID 07/27/18 09/28/18 History Insulin Glargine,Hum.rec.anlog 45 unit SQ HS 07/27/18 09/28/18 History [Lantus Insulin 100units/mL 10mL vial] Isosorbide Mononitrate [Isosorbide 60 mg PO HS 07/27/18 09/28/18 History Mononitrate ER] Rosuvastatin Calcium 5 mg PO HS 07/27/18 09/28/18 History Aspirin [Aspirin 325mg Tab] 325 mg PO DAILY 07/28/18 09/28/18 History Sacubitril/Valsartan [Entresto 49 1 tab PO DAILY 07/28/18 09/28/18 History mg-51 mg Tablet] Finasteride [Proscar] 5 mg PO HS 09/28/18 09/28/18 History Furosemide [Furosemide 80mg Tab] 80 mg PO DAILY 09/28/18 09/28/18 History Potassium Chloride [Micro-K 10mEq 10 meq PO BID 09/28/18 09/28/18 History cap] Vancomycin HCl 125 mg PO Q6H 9 Days #36 cap 09/29/18 Rx Vancomycin HCl [Vancomycin 500mg 125 mg PO Q6 #36 vial 09/30/18 Rx vial] Prescriptions/Medication Reconciliation: New Vancomycin HCl 125 mg PO Q6H 9 Days #36 cap Vancomycin HCl [Vancomycin 500mg vial] 125 mg PO Q6 #36 vial Continued nitroglycerin 0.4 mg sublingual tablet 0.4 mg SUBLINGUAL Q5M PRN PRN Reason: Chest Pain bisoprolol fumarate 10 mg tablet 10 mg PO DAILY #30 tab Tamsulosin HCl [Flomax 0.4mg capsule] 0.4 mg PO HS Omeprazole [Omeprazole 20mg Capsule] 20 mg PO HS Gabapentin [Neurontin 300mg capsule] 300 mg PO HS Allopurinol [Allopurinol 100mg tablet] 200 mg PO DAILY Apixaban [Eliquis 2.5mg tab] 2.5 mg PO BID Rosuvastatin Calcium 5 mg PO HS Insulin Glargine,Hum.rec.anlog [Lantus Insulin 100units/mL 10mL vial] 45 unit SQ HS Aspirin [Aspirin 325mg Tab] 325 mg PO DAILY Sacubitril/Valsartan [Entresto 49 mg-51 mg Tablet] 1 tab PO DAILY Finasteride [Proscar] 5 mg PO HS Isosorbide Mononitrate [Isosorbide Mononitrate ER] 60 mg PO HS Potassium Chloride [Micro-K 10mEq cap] 10 meq PO BID Furosemide [Furosemide 80mg Tab] 80 mg PO DAILY Other Amb Orders: Basic Metabolic Panel Time Frame: 10/02/18, Facility: [facility], Location: [facility] Location
== END 2018-09-30 10:34 | disposition home or self-care (01) ==
LOC: ER 03:54 → 2ND 03:54 → INTOOBSV 08:12 → OBSVTOIN 08:12 → 2ND 08:13
PROVIDERS: ADMIT Family Medicine; ATTEND Internal Medicine Adolescent Medicine
DX: Z99.81 Dependence on supplemental oxygen; Z79.82 Long term (current) use of aspirin; N17.9 Acute kidney failure, unspecified; Z79.4 Long term (current) use of insulin; I50.9 Heart failure, unspecified; Z79.01 Long term (current) use of anticoagulants; A04.72 Enterocolitis due to Clostridium difficile, not specified as recurrent; E87.5 Hyperkalemia; K57.90 Diverticulosis of intestine, part unspecified, without perforation or abscess without bleeding; Z95.811 Presence of heart assist device; E11.9 Type 2 diabetes mellitus without complications
CPT/HCPCS: 36415; 70450; 71020; 71046; 74176; 80048; 80053; 81001; 82150; 82962; 83605; 83690; 83880; 84443; 84484; 85025; 85651; 86140; 87040; 87086; 87506; 93005; 96365; 96375; 99285; G0378; J2405; J3370

== ENCOUNTER → 2018-10-02 09:58 | Outpatient (CLI) | payer MEDICARE, MEDICAID, SELFPAY ==
[2018-10-02 14:26] LABS: Anion Gap 10.5 mEq/L (5-15); Blood Urea Nitrogen 43 mg/dL (7-18); Calcium 9.1 mg/dL (8.5-10.1); Carbon Dioxide 30 mmol/L (21.0-32.0); Chloride 102 mmol/L (98-107); Creatinine,Serum 2.22 mg/dL (0.70-1.30); Estimated Glomerular Filt Rate 29 ml/min (>60); GFR (African American) 35 ML/MIN (>60); Glucose 63 mg/dL (74-106); Potassium 5.5 mmoL/L (3.5-5.1); Sodium 137 mmol/L (136-145)
== END ==
PROVIDERS: PCP Internal Medicine Adolescent Medicine; Visit Provider Internal Medicine Adolescent Medicine
DX: N17.9 Acute kidney failure, unspecified (principal)
CPT/HCPCS: 36415; 80048

== ENCOUNTER → 2019-01-21 10:11 | Outpatient (CLI) | payer MEDICARE, MEDICAID, SELFPAY ==
[2019-01-21 13:44] LABS: Anion Gap 8.5 mEq/L (5-15); Blood Urea Nitrogen 45 mg/dL (7-18); Calcium 9.2 mg/dL (8.5-10.1); Carbon Dioxide 32 mmol/L (21.0-32.0); Chloride 104 mmol/L (98-107); Creatinine,Serum 1.78 mg/dL (0.70-1.30); Estimated Glomerular Filt Rate 37 ml/min (>60); GFR (African American) 45 ML/MIN (>60); Glucose 108 mg/dL (74-106); Potassium 4.5 mmoL/L (3.5-5.1); Sodium 140 mmol/L (136-145)
== END ==
PROVIDERS: Visit Provider Internal Medicine Cardiovascular Disease
DX: I11.0 Hypertensive heart disease with heart failure (principal); I25.10 Atherosclerotic heart disease of native coronary artery without angina pectoris; Z95.1 Presence of aortocoronary bypass graft; Z95.810 Presence of automatic (implantable) cardiac defibrillator
CPT/HCPCS: 36415; 80048

== ENCOUNTER → 2019-03-15 11:28 | Outpatient (CLI) | payer MEDICARE, MEDICAID, SELFPAY ==
[2019-03-15 14:06] LABS: Hemoglobin A1C 8.1 % (0.0-7.0)
[2019-03-15 14:19] LABS: Alanine Aminotransferase 13 U/L (12-78); Albumin Level 3.4 gm/dL (3.4-5.0); Albumin/Globulin Ratio 1.1 (1.1-1.8); Alkaline Phosphatase 84 U/L (46-116); Anion Gap 12.9 mEq/L (5-15); Aspartate Amino Transferase 15 U/L (15-37); Blood Urea Nitrogen 48 mg/dL (7-18); Carbon Dioxide 30 mmol/L (21.0-32.0); Chloride 103 mmol/L (98-107); Creatinine,Serum 2.02 mg/dL (0.70-1.30); Estimated Glomerular Filt Rate 32 ml/min (>60); GFR (African American) 39 ML/MIN (>60); Globulin 3.2 gm/dl (1.3-3.2); Glucose 183 mg/dL (74-106); Potassium 3.9 mmoL/L (3.5-5.1); Sodium 142 mmol/L (136-145); Total Protein,Serum 6.6 gm/dL (6.4-8.2)
== END ==
PROVIDERS: Visit Provider Internal Medicine Adolescent Medicine
DX: E11.22 Type 2 diabetes mellitus with diabetic chronic kidney disease (principal); I50.22 Chronic systolic (congestive) heart failure; Z79.4 Long term (current) use of insulin
CPT/HCPCS: 36415; 80053; 83036; 83880

== ENCOUNTER → 2019-03-22 14:10 | Outpatient (CLI) | payer MEDICARE, MEDICAID, SELFPAY ==
--- NOTE | 2019-03-22 14:16 | XR_ITS ---
PROCEDURE: XR ANKLE WT BEARING LT MIN 3V CLINICAL INDICATION: foot pain Ankle pain COMPARISON: No exams were available for comparison FINDINGS: No fracture or dislocation. No lytic or blastic change. There is generalized vascular calcification with minimal hypertrophy and soft tissue calcification at the tip of the medial malleolus and between the distal fibula and talus. IMPRESSION: Chronic changes, no acute finding Dictated by: Chuy Gonzales MD 03/22/2019 16:07 Electronically signed by Chuy Gonzales MD in [place] 03/22/2019 16:07
--- NOTE | 2019-03-22 14:16 | XR_ITS ---
PROCEDURE: XR ANKLE WT BEARING RT MIN 3V CLINICAL INDICATION: foot pain Ankle pain COMPARISON: No exams were available for comparison FINDINGS: There are mild osteoarthritic changes. Surgical clips are present along the medial aspect of the ankle and distal tibia. There is diffuse vascular calcification. No fracture or dislocation. IMPRESSION: Chronic changes, no acute finding Dictated by: Chuy Gonzales MD 03/22/2019 16:11 Electronically signed by Chuy Gonzales MD in [place] 03/22/2019 16:11
--- NOTE | 2019-03-22 14:16 | XR_ITS ---
PROCEDURE: XR FOOT WT BEARING RT 3V CLINICAL INDICATION: foot pain COMPARISON: No exams were available for comparison FINDINGS: Osteoarthritic changes are present at the 1st and 2nd MTP joint. There is diffuse vascular calcification. There are also mild osteoarthritic changes at the tarsal metatarsal joint and talonavicular and navicular cuneiform joint. No obvious fracture or dislocation. There is diffuse vascular calcification and there are surgical clips along the medial aspect of the ankle. There is some osteosclerosis between the medial and mid cuneiform. Other findings:None. IMPRESSION: Osteoarthritic change. No acute finding Dictated by: Chuy Gonzales MD 03/22/2019 16:10 Electronically signed by Chuy Gonzales MD in [place] 03/22/2019 16:10
--- NOTE | 2019-03-22 14:16 | XR_ITS ---
PROCEDURE: XR FOOT WT BEARING LT 3V CLINICAL INDICATION: foot pain Pain COMPARISON: No exams were available for comparison FINDINGS: There are severe osteoarthritic changes of the 1st meta tarsal phalangeal joint. There is diffuse osteopenia. No acute fracture or dislocation. No lytic or blastic change. Mild osteoarthritic changes are present at the metatarsal tarsal junction and navicular cuneiform joint. There is diffuse vascular calcification. IMPRESSION: Osteoarthritic change, chronic changes, no acute finding Dictated by: Chuy Gonzales MD 03/22/2019 16:12 Electronically signed by Chuy Gonzales MD in [place] 03/22/2019 16:12
== END ==
PROVIDERS: PCP Internal Medicine Adolescent Medicine; Visit Provider Podiatrist
DX: M79.672 Pain in left foot (principal); M25.572 Pain in left ankle and joints of left foot; M79.671 Pain in right foot; M25.571 Pain in right ankle and joints of right foot
CPT/HCPCS: 73610; 73630

== ENCOUNTER 2019-10-13 08:30 | Day surgery (SDC) | payer MEDICARE, MEDICAID, SELFPAY ==
[2019-10-13] VITALS (14 sets, daily range): BP systolic 131–154; BP diastolic 41–65; PULSE 57–91; RESP 16–18; TEMP 36.7; O2SAT 95–98; BMI 36.9
[2019-10-13 09:28] LABS: Basophils # 0.1 K/mm3 (0-0.2); Basophils % 0.9 % (0.1-2.0); Eosinophils # 0.5 K/mm3 (0.0-0.4); Eosinophils % 5.4 % (0.1-12.0); Hematocrit 37.6 % (42.0-52.0); Hemoglobin 12.1 g/dL (14.1-18.0); Lymphocytes # 2.5 K/mm3 (0.7-4.5); Lymphocytes % 27.1 % (10-50); Mean Corpuscular HGB Conc 32.2 g/dL (31.8-35.4); Mean Corpuscular Hemoglobin 30.5 pg (27.0-31.2); Mean Corpuscular Volume 94.9 fl (80-94); Mean Platelet Volume 9.3 fl (7.4-10.4); Monocytes # 0.4 K/mm3 (0.1-1.0); Monocytes % 3.8 % (1.7-9.3); Neutrophils # 5.9 K/mm3 (1.8-7.8); Neutrophils % 62.8 % (37.0-80.0); Platelet Count 129 K/mm3 (142-424); Red Blood Count 3.96 M/mm3 (4.60-6.20); Red Cell Distribution Width 18.8 % (11.5-17.5); White Blood Count 9.4 K/mm3 (4.8-10.8)
[2019-10-13 09:33] LABS: Chloride 102 mmol/L (98-107); Potassium 4.1 mmoL/L (3.5-5.1)
[2019-10-13 09:34] LABS: Sodium 141 mmol/L (136-145)
[2019-10-13 09:36] LABS: Anion Gap 13.1 mEq/L (5-15); Blood Urea Nitrogen 35 mg/dl (9-20); Carbon Dioxide 30 mmol/L (22.0-30.0); Creatinine Clearance Estimated 43 mL/min (50-200); Estimated Glomerular Filt Rate 32 ml/min (>60); GFR (African American) 39 ML/MIN (>60)
[2019-10-13 09:37] LABS: Calcium 9.6 mg/dl (8.4-10.2); Glucose 109 mg/dl (74-100)
--- NOTE | 2019-10-13 11:00 | IR_ITS ---
APPROVED REPORT Patient Location: Outpatient Leather Worker: JOHN Carpio RT (R) PROCEDURES Left heart catheterization Left ventriculogram Selective coronary angiogram Left internal mammary angiography Selective engagement of the saphenous vein graft to the circumflex artery Selective engagement of the saphenous vein graft to the right coronary Drug-eluting stent deployment to the ostial left main artery INDICATION Recurrent angina pectoris, Coronary artery disease, History of coronary bypass surgery Informed consent was obtained prior to the procedure. COMPLICATIONS NONE Estimated Blood Loss: LESS THAN 10 ML TECHNIQUE One percent lidocaine used to anesthetize the right groin. The right femoral artery was accessed via the Seldinger technique and a 5 [place] sheath was placed in the right femoral artery. A JL 4, JR4 catheter were used to perform left heart catheterization, left ventriculogram selective coronary angiography as well as selective engagement of the saphenous vein graft to the circumflex artery as well as selective engagement of the saphenous vein graft to the dominant right coronary artery. The other venous grafts were not engaged due to patient's chronic renal failure and history of known occlusion of the vein grafts. The saphenous vein graft to the circumflex artery was engaged not knowing if that was supplying the right coronary artery or the circumflex artery. At the end of the procedure mini exchange was performed and the 5 [place]uv[place] sheath was exchanged for a 6 [place] sheath. Therapeutic heparin was administered. A JL4 guide catheter was placed in the ostial left main artery and a Choice PT extra-support wire was used to traverse the stenosis in the left main artery. A 3 mm x 12 mm resolute fidel stent was placed in the ostial proximal portion of the left main artery and deployed at 24 estrella reducing the severe stenosis to 0%. ROSELYN-3 flow was present before and after the procedure. At the end of the procedure the apparatus was removed the groin was reprepped gloves were changed sheath was removed good hemostasis was achieved using Perclose device patient was transferred to the postop holding in stable condition ANGIOGRAPHIC RESULTS The left main artery Has an ostial 90% stenosis and then supplies a large ramus intermedius artery which has stents in its proximal and mid segment which is widely patent with excellent proximal distal transitioning and free of in-stent restenosis. The left anterior descending artery Ostially occluded The circumflex artery Ostially occluded The right coronary artery Known to be ostially occluded from previous heart cath The PEREZ ventriculogram reveals Preserved at 55% The left ventricular end-diastolic pressure 15 mmHg The left internal mammary artery is widely patent to the LAD The saphenous vein graft to the circumflex artery is ostially occluded The saphenous vein graft to the presumed ramus intermedius was noted to be ostially occluded from the previous heart cath Saphenous vein graft to the right coronary artery is widely patent IMPRESSION Severe disease in the ostial left main artery supplying a large ramus intermedius with an occluded saphenous vein graft no longer supplying antegrade flow Successful stenting of the ostial left main artery supplying the ramus intermedius severe disease reduced to 0% with one drug-eluting stent Chronically occluded 2 venous grafts one to the circumflex artery 1 to the ramus intermedius Widely patent saphenous vein graft to a large right coronary Widely patent left internal mammary artery to an LAD Preserved ejection fraction Mildly elevated LVEDP PLAN 1. Dual antiplatelet therapy combined with E
--- NOTE | 2019-10-13 15:52 | HMH.PHACLD ---
Franc Jara has received discharge medication counseling on the following medications: PATIENT CURRENTLY TAKING ASPIRIN 81 MG DAILY, BISOPROLOL 5 MG DAILY, ENTRESTO 24/ BID, AND ROSUVASTATIN 5 MG HS. MD STARTING PLAVIX 75 MG DAILY.
[2019-10-13 16:20] LABS: CATHL Activated Clotting Time 299 SEC (74-125)
--- NOTE | 2019-10-26 10:17 | SUR.PHASEII ---
10/13/19 @ 0800 (late note)- upon retrieving patient from admissions recruiter pt is accompanied by son and states he is weak and requests to be wheeled in wheelchair. 10/13/19 @ 1600 (late note)- pt states he is feeling weak and requests nursing assistance with getting dressed. nurse assisted him in dressing including shirt, pants/underwear and shoes/socks. nurse placed wheelchair next to bed on patients left side. upon standing to get into wheelchair, pt took a step with left foot and right leg gave out causing patient to lean back against bed. due to pts size, nurse lowered pt to floor. nurse called for delia RAMOS to assist getting pt up to wheelchair. upon inspection no bruises/cuts/scrapes noted, asked pt if injured pt denied. nurse asked pt if he wanted to be examined in ER, pt refused stating he just wanted to go home. when questioned about mobility at home, pt stated he had a motorized wheelchair son could assist him with. nurse again asked patient if he had any injuries and if he wanted to be examined in ER and again pt refused stating he just wanted to go home. nurse x2 assisted pt to private vehicle where son was waiting for pt, assisted pt in vehicle without issue. nurse instructed pt/son that if any issues occur with weakness once home to call ambulance, both son and pt acknowledged and agreed, no further questions/concerns voiced at this time.
== END 2019-10-13 16:35 | disposition home or self-care (01) ==
PROVIDERS: PCP Internal Medicine Adolescent Medicine; Visit Provider Internal Medicine
DX: E11.9 Type 2 diabetes mellitus without complications (principal); Z79.01 Long term (current) use of anticoagulants; E78.2 Mixed hyperlipidemia; I11.0 Hypertensive heart disease with heart failure; I50.22 Chronic systolic (congestive) heart failure; R06.02 Shortness of breath; R94.31 Abnormal electrocardiogram [ECG] [EKG]; Z95.1 Presence of aortocoronary bypass graft; Z95.810 Presence of automatic (implantable) cardiac defibrillator; E66.9 Obesity, unspecified; I25.110 Atherosclerotic heart disease of native coronary artery with unstable angina pectoris; Z79.82 Long term (current) use of aspirin; Z79.4 Long term (current) use of insulin; I25.728 Atherosclerosis of autologous artery coronary artery bypass graft(s) with other forms of angina pectoris; I25.82 Chronic total occlusion of coronary artery; I48.20 Chronic atrial fibrillation, unspecified
CPT/HCPCS: 80048; 85025; 85347; 92928; 93459; 99152; 99153; C1725; C1760; C1769; C1876; C1894; C9600; J1644; J2405; Q9967

== ENCOUNTER 2019-10-16 12:31 | Emergency (ER) | payer MEDICARE, MEDICAID, SELFPAY ==
[2019-10-16 12:24] VITALS: BP 110/52; PULSE 76; RESP 20; TEMP 36.8; O2SAT 99; BMI 36.6
--- NOTE | 2019-10-16 12:43 | HMH.EDGENADL ---
ED Disposition Clinical Impression: Toe pain, right Chest pain Qualifiers: Chest pain type: unspecified Qualified Code(s): R07.9 - Chest pain, unspecified Toe fracture, right Qualifiers: Encounter type: initial encounter Toe: lesser toe Fracture type: closed Phalanx: distal Fracture alignment: displaced Qualified Code(s): S92.531A - Displaced fracture of distal phalanx of right lesser toe(s), initial encounter for closed fracture Disposition: Home, Self-Care Condition on Discharge: Good Additional Instructions: Follow-up with Dr. Mota and your PCP. If you have any new, changing, worsening, or concerning symptoms, come back to the emergency department. Referrals: PCP,No [Non-Staff] - Time of Disposition: 15:17 - Critical Care Critical Care Time: No Attestation: On 10/16/19, the high probability of a clinically significant, sudden or life threatening deterioration of the following system(s) required my full and direct attention, intervention and personal management. The time I documented below is in addition to time spent performing reported procedures but includes the following listed in this critical care notation. Medical Decision Making - Medical Records Medical records reviewed: Yes: I reviewed the patient's medical records. MR Comment: 79-year-old male with a history of chronic kidney disease, heart failure, hypertension, diabetes and recent left main stent with Dr. Mota on October 12, presents emergency department with intermittent chest pain, subjective shortness of air, and toe pain. He arrives to the ED hemodynamically stable, with reassuring vital signs, and looks well on exam. He is not tachypneic, oxygen saturation 99% on 2 L, which is his baseline supplemental oxygen. He does not have any infectious symptoms that would indicate pneumonia. Given this intermittent chest pain, will get labs and EKG, will evaluate his foot with an x-ray and reassess. Reassessment, patient remains well. He is tolerating p.o. here. He continues to be comfortable on evaluation. Spoke with Dr. Mota given his complaints and recent stent, and methods to do right now from a cardiac standpoint. Urine looks okay and no pneumonia on chest x-ray. X-ray of the toe shows a third distal phalanx fracture. Toes were booker tape and he was given a hard sole shoe and will be given follow-up. Given this, patient can safely discharge. He was given strict return precautions and discharge instructions including follow-up for further evaluation and treatment and verbalized understanding and agreement to the plan. Safe to discharge. - Anthony Inquiry Pt receiving controlled substance: No Vital Signs: 10/16/19 12:24 10/16/19 13:22 Temperature 98.2 F Temperature Source Oral Pulse Rate [Right Brachial] 76 81 Respiratory Rate 20 20 Blood Pressure [Right Arm] 110/52 L 109/56 L Blood Pressure Mean [Right Arm] 71 73 Blood Pressure Source [Right Arm] Automatic Cuff Automatic Cuff Blood Pressure Position [Right Arm] Sitting Sitting 02 Sat by Pulse Oximetry 99 97 Oxygen Delivery Method Nasal Cannula Room Air Oxygen Flow Rate (LPM) 2 - Lab Data Lab Results 10/16/19 12:45: WBC 7.6, RBC 3.41 L, Hgb 10.4 L, Hct 31.5 L, MCV 92.3, MCH 30.5, MCHC 33.0, RDW 18.8 H, Plt Count 115 L, MPV 9.8, Neut % (Auto) 66.7, Lymph % (Auto) 20.9, [place] % (Auto) 5.1, Eos % (Auto) 6.5, Baso % (Auto) 0.9, Neut # (Auto) 5.1, Lymph # (Auto) 1.6, [place] # (Auto) 0.4, Eos # (Auto) 0.5 H, Baso # (Auto) 0.1 10/16/19 12:45: Sodium 133 L, Potassium 4.6, Chloride 94 L, Carbon Dioxide 32 H, Anion Gap 11.6, BUN 39 H, Creatinine 2.00 H, Estimated Creat Clear 42, Estimated GFR 32 L, Est GFR ( Amer) 39 L, Glucose 186 H, Calcium 8.4, Troponin I 0.02 10/16/19 13:05: Urine Color Yellow, Urine Appearance Clear, Urine pH 7.0, Ur Specific [place] 1.010, Urine Protein Negative, Urine Glucose (UA) Negative, Urine Ketones Negative, Urine Blood Negative, Urine Nitrate Negative, Urine B
--- NOTE | 2019-10-16 12:52 | XR_ITS ---
PROCEDURE: XR CHEST PORTABLE CLINICAL INDICATION: weakness COMPARISON: XR CHEST 2V from 05/20/2019 FINDINGS: There has been a prior CABG. There is cardiomegaly with tripolar pacemaker in place. There is mild pulmonary venous congestion No lobar consolidation or collapse. Other findings:None. IMPRESSION: Cardiomegaly with mild CHF Dictated b Chuy Gonzales MD 10/17/2019 07:24 Chuy Gonzales MD in [place] 10/17/2019 07:24
[2019-10-16 12:59] LABS: Basophils # 0.1 K/mm3 (0-0.2); Basophils % 0.9 % (0.1-2.0); Eosinophils # 0.5 K/mm3 (0.0-0.4); Eosinophils % 6.5 % (0.1-12.0); Hematocrit 31.5 % (42.0-52.0); Hemoglobin 10.4 g/dL (14.1-18.0); Lymphocytes # 1.6 K/mm3 (0.7-4.5); Lymphocytes % 20.9 % (10-50); Mean Corpuscular Hemoglobin 30.5 pg (27.0-31.2); Mean Corpuscular Volume 92.3 fl (80-94); Mean Platelet Volume 9.8 fl (7.4-10.4); Monocytes # 0.4 K/mm3 (0.1-1.0); Monocytes % 5.1 % (1.7-9.3); Neutrophils # 5.1 K/mm3 (1.8-7.8); Neutrophils % 66.7 % (37.0-80.0); Platelet Count 115 K/mm3 (142-424); Red Blood Count 3.41 M/mm3 (4.60-6.20); Red Cell Distribution Width 18.8 % (11.5-17.5); White Blood Count 7.6 K/mm3 (4.8-10.8)
[2019-10-16 13:05] LABS: Anion Gap 11.6 mEq/L (5-15); Blood Urea Nitrogen 39 mg/dl (9-20); Calcium 8.4 mg/dl (8.4-10.2); Carbon Dioxide 32 mmol/L (22.0-30.0); Chloride 94 mmol/L (98-107); Creatinine Clearance Estimated 42 mL/min (50-200); Estimated Glomerular Filt Rate 32 ml/min (>60); GFR (African American) 39 ML/MIN (>60); Glucose 186 mg/dl (74-100); Potassium 4.6 mmoL/L (3.5-5.1); Sodium 133 mmol/L (136-145)
[2019-10-16 13:07] LABS: Microscopic, Urine URINE MICROSCOPIC (MICROSCOPIC)
[2019-10-16 13:08] LABS: Appearance,Urine CLEAR (Clear); Bilirubin,Urine Negative (Negative); Blood, Urine Negative (Negative); Color,Urine YELLOW (Yellow); Glucose,Urine (UA) Negative (Negative); Ketones,Urine Negative (Negative); Leukocyte Esterase,Urine Negative (Negative); Nitrate,Urine Negative (Negative); Protein,Urine Negative (Negative)
[2019-10-16 13:17] LABS: Troponin I 0.02 ng/ml (0.00-0.034)
[2019-10-16 13:18] LABS: Squamous Epithelial Cell,Urine Occasional #/hpf (0-5)
[2019-10-16 13:22] VITALS: BP 109/56; PULSE 81; RESP 20; O2SAT 97
--- NOTE | 2019-10-16 13:31 | ECG_ITS ---
APPROVED REPORT Exam: Resting ECG HR:77 bpm ECG Measurements Heart Rate 77 AXES QRSd 110 QRS 63 QT 412 T 175 QTc 466 <Conclusion> Demand pacemaker, interpretation is based on intrinsic rhythm Atrial fibrillation with premature ventricular or aberrantly conducted complexes ST & T wave abnormality, consider lateral ischemia or digitalis effect Prolonged QT Abnormal ECG Electronically signed by : Kervin Rodríguez, 10/17/2019 09:17:00
--- NOTE | 2019-10-16 13:49 | PC.NURSE ---
DR BRODY SPEAKING WITH DR INGRAM
--- NOTE | 2019-10-16 15:06 | XR_ITS ---
PROCEDURE: XR FOOT RT 2V CLINICAL INDICATION: foot pain, 3rd and 4th toes COMPARISON: XR FOOT WT BEARING LT 3V from 03/22/2019 FINDINGS: No fracture or dislocation. No lytic or blastic change. There is normal mineralization. Osteoarthritic changes are present at the 1st and 2nd metatarsophalangeal joint and at the tarsal metatarsal junction. And at the calcaneocuboid joint. There is some mild subarticular cystic change at the 1st and 2nd cuneiform joint there is diffuse vascular calcification. Surgical clips are present along the medial aspect of the ankle Other findings:None. IMPRESSION: Osteoarthritis, no acute finding Dictated b Chuy Gonzales MD 10/17/2019 07:20 Chuy Gonzales MD in [place] 10/17/2019 07:20
[2019-10-16 16:50] VITALS: BP 110/70; PULSE 78; RESP 16; TEMP 36.8; O2SAT 98
== END 2019-10-16 16:53 | disposition home or self-care (01) ==
PROVIDERS: Emergency Provider Emergency Medicine; PCP Internal Medicine Adolescent Medicine
DX: S92.531A Displaced fracture of distal phalanx of right lesser toe(s), initial encounter for closed fracture (principal); W01.0XXA Fall on same level from slipping, tripping and stumbling without subsequent striking against object, initial encounter; Y92.89 Other specified places as the place of occurrence of the external cause; R07.9 Chest pain, unspecified; E11.9 Type 2 diabetes mellitus without complications; I10 Essential (primary) hypertension; I50.9 Heart failure, unspecified; I48.20 Chronic atrial fibrillation, unspecified; I25.2 Old myocardial infarction; E78.5 Hyperlipidemia, unspecified; I25.10 Atherosclerotic heart disease of native coronary artery without angina pectoris; K21.9 Gastro-esophageal reflux disease without esophagitis; Z99.81 Dependence on supplemental oxygen; Z79.899 Other long term (current) drug therapy; Z90.49 Acquired absence of other specified parts of digestive tract; Z88.8 Allergy status to other drugs, medicaments and biological substances
CPT/HCPCS: 71045; 73620; 80048; 81001; 84484; 85025; 93005; 99283; 99284

== ENCOUNTER 2019-10-28 08:36 | Outpatient (RCR) | payer MEDICARE, MEDICAID, SELFPAY | END 2019-12-16 13:43 | disposition home or self-care (01) | LOC: PT 08:36 | PROVIDERS: Visit Provider Internal Medicine | DX: I25.10 Atherosclerotic heart disease of native coronary artery without angina pectoris (principal); Z95.5 Presence of coronary angioplasty implant and graft ==

== ENCOUNTER → 2020-11-17 17:44 | Outpatient (CLI) | payer MEDICARE, MEDICAID, SELFPAY ==
[2020-11-17 18:58] LABS: Basophils # 0.1 K/mm3 (0-0.2); Basophils % 1.5 % (0.1-2.0); Eosinophils # 0.4 K/mm3 (0.0-0.4); Eosinophils % 5.8 % (0.1-12.0); Hemoglobin 10.7 g/dL (14.1-18.0); Lymphocytes # 1.9 K/mm3 (0.7-4.5); Lymphocytes % 27.3 % (10-50); Mean Corpuscular Hemoglobin 28.9 pg (27.0-31.2); Mean Corpuscular Volume 99.8 fl (80-94); Mean Platelet Volume 11.7 fl (7.4-10.4); Monocytes # 0.4 K/mm3 (0.1-1.0); Monocytes % 5.4 % (1.7-9.3); Neutrophils # 4.2 K/mm3 (1.8-7.8); Platelet Count 127 K/mm3 (142-424); Red Blood Count 3.71 M/mm3 (4.60-6.20); Red Cell Distribution Width 17.6 % (11.5-17.5)
[2020-11-17 19:01] LABS: Alanine Aminotransferase 10 U/L (12-78); Albumin Level 3.4 g/dl (3.5-5.0); Albumin/Globulin Ratio 1.2 (1.1-1.8); Alkaline Phosphatase 87 U/L (38-126); Anion Gap 15.2 mEq/L (5-15); Aspartate Amino Transferase 50 U/L (17-59); Bilirubin,Total 0.6 mg/dl (0.2-1.3); Blood Urea Nitrogen 30 mg/dl (9-20); Carbon Dioxide 29 mmol/L (22.0-30.0); Chloride 99 mmol/L (98-107); Estimated Glomerular Filt Rate 36 ml/min (>60); GFR (African American) 44 ML/MIN (>60); Globulin 2.8 g/dL (1.3-3.2); Glucose 157 mg/dl (74-100); Magnesium 2.1 mg/dl (1.6-2.3); Potassium 5.2 mmoL/L (3.5-5.1); Sodium 138 mmol/L (136-145); Total Protein,Serum 6.2 g/dl (6.3-8.2)
[2020-11-17 19:19] LABS: Hemoglobin A1C 8.5 % (4.0-6.0)
== END ==
PROVIDERS: Visit Provider Internal Medicine Adolescent Medicine
DX: E11.22 Type 2 diabetes mellitus with diabetic chronic kidney disease (principal); N18.30 Chronic kidney disease, stage 3 unspecified; Z79.4 Long term (current) use of insulin
CPT/HCPCS: 80053; 83036; 83735; 85025

== ENCOUNTER → 2021-01-01 13:59 | Outpatient (CLI) | payer MEDICARE, MEDICAID, SELFPAY ==
--- NOTE | 2021-01-01 14:03 | XR_ITS ---
PROCEDURE: XR CHEST 2V CLINICAL HISTORY: pain around AICd site COMPARISON: CR CXR2V XR chest 2V from 09/28/2018 CR XR CHEST 2V from 05/20/2019 CR XR CHEST PORTABLE from 10/16/2019 FINDINGS: The lung [place] are well-expanded and appear clear of infiltrate. There is mild generalized cardiomegaly. There is mild aortic tortuosity with diffuse arthrosclerotic calcification of the aortic arch and descending thoracic aorta. Sternal wire sutures and surgical clips are seen from previous CABG. There is mild prominence of the upper lobe vessels. There is no pleural fluid. There is an AICD device projecting over left upper chest with dual chamber electrodes both in good position. The soft tissues of the left chest wall appear normal. IMPRESSION: Stable mild generalized cardiomegaly with possible mild chronic congestive heart failure Dictated by: Dr. Panchito Emmanuel MD 01/02/2021 08:19 Dr. Panchito Emmanuel MD in [place] 01/02/2021 08:19
== END ==
PROVIDERS: PCP Internal Medicine Adolescent Medicine; Visit Provider Nurse Practitioner Family
DX: R07.9 Chest pain, unspecified (principal)
CPT/HCPCS: 71046

== ENCOUNTER → 2021-05-14 10:13 | Outpatient (CLI) | payer MEDICARE, MEDICAID, SELFPAY ==
--- NOTE | 2021-05-14 10:20 | CT_ITS ---
FINAL REPORT TECHNIQUE: Axial imaging of the chest was obtained with and without contrast.This study was performed with techniques to keep radiation doses as low as reasonably achievable, (ALARA). Individualized dose reduction technique using automated exposure control or adjustment of mA and/or kV according to the patient's size were employed. CLINICAL HISTORY: WEIGHT LOSS, anemia FINDINGS: Bilateral gynecomastia is noted. Patient is status post median sternotomy. A pacemaker is in place. There is no axillary adenopathy. There is no hilar or mediastinal adenopathy. The heart size is enlarged. There is no pericardial or pleural effusion. There is mild bibasilar atelectasis or scarring. No suspicious infiltrate or nodule identified. IMPRESSION: No acute process. Reviewed, Interpreted and Dictated by Krish Langley III, MD Transcribed by Rossi Morse Authenticated by Krish Langley III, MD on 05/14/2021 01:11:23 PM [facility]
--- NOTE | 2021-05-14 10:20 | CT_ITS ---
FINAL REPORT TECHNIQUE: Axial CT images of the abdomen and pelvis were obtained before and after the administration of IV contrast. Oral contrast was administered.This study was performed with techniques to keep radiation doses as low as reasonably achievable (ALARA). Individualized dose reduction techniques using automated exposure control or adjustment of mA and/or kV according to the patient''s size were employed. CLINICAL HISTORY: WEIGHT LOSS, anemia COMPARISON: 09/28/2018 FINDINGS: Abdomen: There is cardiomegaly. There is mild bibasilar atelectasis or scarring. The liver has an unremarkable appearance, without evidence of mass or biliary duct dilatation. There is presumed cholecystectomy. The spleen is unremarkable. No adrenal masses present. The pancreas has an unremarkable appearance. There are multiple bilateral low-attenuation renal masses consistent with bilateral cysts with the largest on the left measuring 2.8 cm. In addition, there is a mass in the posterior right kidney measuring 10 mm which has an appearance most consistent with a hyper dense cyst. There are small calcifications at the periphery of the left kidney, stable. The aorta is normal in caliber. There is no free fluid or adenopathy. No mass or abnormal fluid collection is seen. Precontrast images demonstrate several small nonobstructing renal stones.. Pelvis: The appendix is not visualized. The urinary bladder is unremarkable. There is descending and sigmoid colon diverticulosis. There is soft tissue thickening posterior to the descending colon of uncertain significance and could represent small amount of fluid or post inflammatory change. There is no evidence of mass or adenopathy. There is no evidence of bowel obstruction. 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 IMPRESSION: Multiple bilateral renal cysts and a presumed hyperdense cyst in the right kidney. Abnormal attenuation posterior to the descending colon, post inflammatory versus small amount of fluid. Stable right external iliac vein aneurysm. Reviewed, Interpreted and Dictated by Krish Langley III, MD Transcribed by Ana Maria Velazquez Authenticated by Krish Langley III, MD on 05/14/2021 12:52:06 PM [facility]
== END ==
PROVIDERS: PCP Internal Medicine Adolescent Medicine; Visit Provider Nurse Practitioner Family
DX: R63.4 Abnormal weight loss (principal)
CPT/HCPCS: 71270; 74178; Q9967

== ENCOUNTER 2021-09-30 07:53 | Emergency (ER) | payer MEDICARE, MEDICAID, SELFPAY ==
--- NOTE | 2021-09-30 08:00 | PC.NURSE ---
pt to xray
[2021-09-30 08:04] VITALS: BP 119/60; PULSE 74; RESP 18; TEMP 36.5; O2SAT 97; BMI 34.9
--- NOTE | 2021-09-30 08:08 | XR_ITS ---
PROCEDURE INFORMATION: Exam: XR Left Shoulder Exam date and time: 09/30/2021 8:18 AM Age: 81 years old Clinical indication: Pain; Shoulder; Left; Additional info: Pain- no injury TECHNIQUE: Imaging protocol: Radiologic exam of the Left shoulder. Views: 2 or more views. AP images in internal and external rotation and scapular Y view. COMPARISON: CT CHEST WO/W CON 05/14/2021 10:33 AM FINDINGS: Tubes, catheters and devices: Cardiac pacer on the left. Bones/joints: Moderate degenerative changes of the acromioclavicular joint. Calcifications in the soft tissues lateral to the acromion and proximal humerus. No acute fracture or malalignment. Decreased distance between the distal acromion and proximal humerus suggesting chronic rotator cuff injury. Vasculature: The aorta demonstrates moderate atherosclerotic calcification. Intraperitoneal space: Surgical clips left upper quadrant. Soft tissues: Normal. IMPRESSION: 1. No acute fracture or malalignment. 2. Moderate degenerative changes of the acromioclavicular joint. Decreased distance between the distal acromion and proximal humerus suggesting chronic rotator cuff injury.
--- NOTE | 2021-09-30 08:10 | XR_ITS ---
PROCEDURE INFORMATION: Exam: XR Cervical Spine Exam date and time: 09/30/2021 8:20 AM Age: 81 years old Clinical indication: Neck pain TECHNIQUE: Imaging protocol: Radiologic exam of the cervical spine. Views: 2 or 3 views. AP, lateral and odontoid views COMPARISON: CR XR SHOULDER LT MIN 2V 09/30/2021 8:18 AM FINDINGS: Bones/joints: Congenital fusion of C5-C6 disc. Mild disc space narrowing at C3-C4 and C5-C6. Multilevel degenerative facet changes bilaterally. The dens is intact. Two broken superior median sternotomy wires are noted. Soft tissues: Unremarkable. Heart/Mediastinum: Cardiac pacer wires are noted. Vasculature: The aorta demonstrates moderate atherosclerotic calcification. IMPRESSION: Spondylitic changes, no acute fracture.
--- NOTE | 2021-09-30 08:15 | PC.NURSE ---
pt returned from xr
--- NOTE | 2021-09-30 08:18 | HMH.EDGENADL ---
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 You have been diagnosed with a rotator cuff injury and cervical arthritis. Please take anti-inflammatory medication like naproxen. Use topical lidocaine patches. Do stretching and strengthening exercises. Follow-up with your primary care doctor in 24 to 48 hours for symptom recheck. Follow-up with orthopedics as needed. Return to the emergency department for any new or worsening symptoms, fevers, uncontrolled pain, numbness or weakness in your arms. Prescriptions: Lidocaine [Lidoderm 5% transdermal patch] 1 each TP Q24H PRN #5 patch PRN Reason: Mild To Moderate Pain Transmission Status: Pending to [facility] Naproxen [Naproxen 500mg tab] 500 mg PO BID PRN #30 tab PRN Reason: Mild To Moderate Pain Transmission Status: Pending to [facility] Referrals: Hardik Decker MD [Primary Care Provider] - Time of Disposition: 09:18 - Critical Care Critical Care Time: No Attestation: On 09/30/21, the high probability of a clinically significant, sudden or life threatening deterioration of the following system(s) required my full and direct attention, intervention and personal management. The time I documented below is in addition to time spent performing reported procedures but includes the following listed in this critical care notation. Medical Decision Making - Medical Records Medical records reviewed: Yes: I reviewed the patient's medical records. - Anthony Inquiry Pt receiving controlled substance: No Vital Signs: 09/30/21 08:04 09/30/21 08:57 Temperature 97.7 F Temperature Source Oral Pulse Rate 71 Pulse Rate [Left Radial] 74 Respiratory Rate 18 16 Blood Pressure 108/55 L Blood Pressure [Right Arm] 119/60 Blood Pressure Mean [Right Arm] 79 02 Sat by Pulse Oximetry 97 100 Oxygen Delivery Method Room Air Orders (Tests/Meds): ED MEDICATIONS Discontinued Medications Generic Name Dose Route Start Last Admin Trade Name Dinora PRN Reason Stop Dose Admin Ibuprofen 600 mg 09/30/21 08:11 09/30/21 08:43 Ibuprofen 600 Mg Tablet PO 09/30/21 08:12 600 mg ONCE ONE Administration Lidocaine 1 each 09/30/21 08:11 09/30/21 08:43 Lidocaine 5% Transdermal Patch TP 09/30/21 08:12 1 each ONCE ONE Administration - Radiology Data #1 Image(s): Shoulder Image Reviewed: Yes I reviewed the patient's radiology results, Yes I have reviewed radiologist's interpretation Preliminary Findings: Abnormal IMPRESSION: 1. No acute fracture or malalignment. 2. Moderate degenerative changes of the acromioclavicular joint. Decreased distance between the distal acromion and proximal humerus suggesting chronic rotator cuff injury. Medical Decision Narrative: In summary this is an 81-year-old [id number] male presenting to the emergency department with left-sided neck, shoulder pain. Patient clinically stable on arrival. Vital signs within normal limits. We will start with x-rays of the cervical spine and left shoulder. Patient given ibuprofen and lidocaine patch for pain. X-ray of the cervical spine shows spondylitic changes. No acute fracture. X-ray of the left shoulder shows significantly decreased space between the acromion and the clavicle. This is likely due to a chronic rotator cuff tear and arthritic changes in the s
[2021-09-30 08:57] VITALS: BP 108/55; PULSE 71; RESP 16; O2SAT 100
[2021-09-30 09:38] VITALS: BP 118/54; PULSE 70; RESP 16; O2SAT 99
[2021-09-30 09:50] VITALS: BP 118/54; PULSE 69; RESP 20; TEMP 36.5; O2SAT 100
== END 2021-09-30 09:51 | disposition home or self-care (01) ==
PROVIDERS: Emergency Provider Emergency Medicine; PCP Internal Medicine Adolescent Medicine
DX: S46.002A Unspecified injury of muscle(s) and tendon(s) of the rotator cuff of left shoulder, initial encounter (principal); M47.22 Other spondylosis with radiculopathy, cervical region; Z88.8 Allergy status to other drugs, medicaments and biological substances; I48.91 Unspecified atrial fibrillation; I25.10 Atherosclerotic heart disease of native coronary artery without angina pectoris; E10.9 Type 1 diabetes mellitus without complications; E11.9 Type 2 diabetes mellitus without complications; I11.0 Hypertensive heart disease with heart failure; E78.5 Hyperlipidemia, unspecified; I25.2 Old myocardial infarction; I50.9 Heart failure, unspecified; I73.9 Peripheral vascular disease, unspecified
CPT/HCPCS: 72040; 73030; 99283

== ENCOUNTER 2021-11-13 13:11 | Emergency (ER) | payer MEDICARE, MEDICAID, SELFPAY ==
--- NOTE | 2021-11-13 14:08 | EXP.UTC ---
Discharge Plan Disposition Patient Disposition: Home, Self-Care Condition: Good Prescriptions Prescriptions: New cephalexin [cephalexin] 500 mg capsule 500 mg PO Q6H 10 Days Qty: 40 0RF mupirocin 2 % ointment 1 applic topical TID 7 Days Qty: 22 0RF No Action Januvia 100 mg tablet 100 mg PO nitroglycerin [Nitrostat] 0.4 mg tablet, sublingual 0.4 mg SUBLINGUAL Q5M PRN (Reason: Chest Pain) gabapentin 400 mg capsule 400 mg PO DAILY sacubitril-valsartan 24-26 mg tablet 1 tab PO BID bisoprolol fumarate 5 mg tablet 5 mg PO DAILY isosorbide mononitrate 60 mg tablet extended release 24 hr 30 mg PO DAILY peg 3350-electrolytes [Golytely] 236-22.74-6.74 -5.86 gram recon soln 240 ml PO Q10M Qty: 4000 0RF Rx Instructions: until fecal effluent is clear furosemide 80 mg tablet 80 mg PO DAILY Qty: 30 2RF clopidogrel 75 mg tablet 75 mg PO DAILY Qty: 90 3RF apixaban 2.5 mg tablet 2.5 mg PO BID Qty: 60 4RF rosuvastatin 5 MG tablet 5 mg PO HS insulin glargine 100 unit/mL solution 50 unit SQ HS potassium chloride 10 MEQ capsule, extended release 10 meq PO BID finasteride 5 MG tablet 5 mg PO HS tamsulosin 0.4 MG capsule 0.4 mg PO HS omeprazole 20 MG capsule,delayed release(DR/EC) 20 mg PO HS allopurinol 100 tablet 200 mg PO DAILY Label Comments: naproxen 500 MG tablet 500 mg PO BID PRN (Reason: Mild To Moderate Pain) Qty: 30 0RF lidocaine 1 EACH adhesive patch,medicated 1 each TP Q24H PRN (Reason: Mild To Moderate Pain) Qty: 5 0RF Referrals Follow up/Referrals: Hardik Decker MD [Primary Care Provider] - See instructions Activity Restrictions/Add. Instructions Additional Instructions/Restrictions: Rest the extremity, Wear the haylie wrap somewhat loosely for compression, Elevate the extremity as tolerated while you are resting. Take The medications as directed Follow up with your regular doctor. GO TO THE ER FOR ANY WORSENING SYMPTOMS Clinical Impressions Clinical Impression: Contusion of left leg Diabetes Qualifiers: Diabetes mellitus type: type 2 Diabetes mellitus buttermaker continuous churn insulin use: unspecified halfway insulin use status Diabetes mellitus complication status: with other specified complication Qualified Code(s): E11.69 - Type 2 diabetes mellitus with other specified complication Instructions Patient Instructions: Contusion, How to Use an Elastic Bandage-Knee Sprain, DI for Contusion Discharge ED Provider: Hardik Sinha [facility] [place] HPI General Stated complaint: knot on L leg, trouble walking Time Seen by Provider: 11/13/21 14:08 History of Present Illness Provider Complaint: He states that around 1 week ago he was walking his dog when the leash got wrapped around his left lower leg. Related Data Home Medications Medication Instructions Recorded Confirmed omeprazole 20 mg capsule,delayed 20 mg PO HS STOMACH 05/03/17 10/01/21 release tamsulosin 0.4 mg capsule 0.4 mg PO HS urinary retention 05/03/17 10/01/21 allopurinol 100 mg tablet 200 mg PO DAILY GOUT 05/06/17 10/01/21 nitroglycerin 0.4 mg sublingual 0.4 mg sublingual Q5M PRN Chest 05/27/17 10/01/21 tablet (Nitrostat) Pain rosuvastatin 5 mg tablet 5 mg PO HS Cholesterol 07/27/18 10/01/21 finasteride 5 mg tablet 5 mg PO HS PROSTATE/URINARY 09/28/18 10/01/21 potassium chloride 10 mEq 10 meq PO BID Supplement 09/28/18 10/01/21 capsule,extended release bisoprolol fumarate 5 mg tablet 5 mg PO DAILY Heart rhythm 03/22/19 10/01/21 gabapentin 400 mg capsule 400 mg PO DAILY pain 03/22/19 10/01/21 insulin glargine 100 unit/mL 50 unit SQ HS Diabetes 03/22/19 10/01/21 subcutaneous solution sacubitril 24 mg-valsartan 26 mg 1 tab PO BID High blood pressure 03/22/19 10/01/21 tablet isosorbide mononitrate 60 mg 30 mg PO DAILY 07/03/20 10/01/21 tablet,extended release 24 hr sitagliptin 100 mg tablet (Hafsa
[2021-11-13 14:13] VITALS: BP 135/87; PULSE 73; RESP 16; TEMP 36.5; O2SAT 98; BMI 34.9
[2021-11-13 14:53] VITALS: BP 135/87; PULSE 73; RESP 16; TEMP 36.5
== END 2021-11-13 14:54 | disposition home or self-care (01) ==
PROVIDERS: Emergency Provider Nurse Practitioner Family; PCP Internal Medicine Adolescent Medicine
DX: S80.12XA Contusion of left lower leg, initial encounter (principal); R07.9 Chest pain, unspecified; R53.82 Chronic fatigue, unspecified; I20.0 Unstable angina; Z79.01 Long term (current) use of anticoagulants; Z79.02 Long term (current) use of antithrombotics/antiplatelets; Z79.1 Long term (current) use of non-steroidal anti-inflammatories (NSAID); Z79.4 Long term (current) use of insulin; Z79.899 Other long term (current) drug therapy; Z88.8 Allergy status to other drugs, medicaments and biological substances; Z95.810 Presence of automatic (implantable) cardiac defibrillator
CPT/HCPCS: 99212; G0463

== ENCOUNTER → 2022-01-02 11:59 | Outpatient (CLI) | payer MEDICARE, MEDICAID, SELFPAY ==
--- NOTE | 2022-01-02 | CA_ITS ---
APPROVED REPORT Exam: Pharmacologic Technologist: Ramila Jewell, Ht: 5 ft 5 in Wt: 209 lbs BSA: 2.02 m2 HR: 77 bpm BP: 127/55 mmHg Rhythm: Afib with ventricular paced rhythm, PVC vs aberrantly conducted beat Indications: CP, CAD Medical History Medical History: Diabetes Medications: Omeprazole,,,,, Potassium Chloride,,,,, Nitrostat,,,,, Gabapentin,,,,, Allopurinol,,,,, TAMSULOSIN,,,,, CloPIdogrel,,,,, BisOPROLOL,,,,, Finasteride,,,,, RoSUVASTATIN,,,,, Apixaban,,,,, SeMaglutide,,,,, Stress Test Details Test: LEXISCAN HR Resting HR: 73 bpm Max Heart Rate (APMHR): 139.766542 bpm Max HR Achieved: 83 bpm Target HR (85% APMHR): 118.550664 bpm % of APMHR: 59.71 Recovery HR: 72 bpm BP Resting BP: 127/55 mmHg Max BP: 135/53 mmHg Recovery BP: 122.0/52.0 mmHg ECG Resting ECG: Afib with ventricular paced rhythm, PVC vs aberrantly conducted beat Clinical Exercise duration: 04:07 min Highest Stage Achieved: Exercise capacity: 1.0 METs Stress ECG Conclusion During lexiscan pt had no symptoms. Occasional PVC abberantly conducted beat. No significant ST changes. Myoview images reported separately. Test Summary REST . . . . . . . Sitting REST 03:26 . . 73 . 127/ 55 . . Stage 1 01:00 . . 78 . . . . Stage 2 01:00 . . 74 . . . . Stage 3 01:00 . . 80 . 135/ 53 . . Stage 4 01:00 . . 74 . 130/ 53 . . Stage 4 01:07 . . 73 . 130/ 53 . Stop exercise at 04:07 RECOVERY 01:00 . . 72 . 130/ 54 . . RECOVERY 02:00 . . 73 . 130/ 54 . . RECOVERY 03:00 . . 76 . 130/ 54 . . RECOVERY 03:33 . . 78 . 122/ 52 . . Electronically signed by : Maxim Bradshaw MD 01/02/2022 17:18:25
--- NOTE | 2022-01-02 12:00 | NM_ITS ---
APPROVED REPORT Exam: Nuclear Stress Test Indication: CAD, 9 STENTS, CABG X2 & 4, HTN, HYPERLIPIDEMIA, C.P.,SOB Patient Location: Outpatient Stress Tech: Ramila Jewell [place] Tech:JOHN Zamora RT (R)(N)(M) Ht: 5 ft 5 in Wt: 209 lbs HR: 77 bpm BP: 127/55 mmHg BSA: 2.02 m2 TID: 1.07 BMI: 34.7 History: CAD, 9 STENTS, CABG X2 & 4, HTN, HYPERLIPIDEMIA, C.P.,SOB Procedure: Patient received a 0.4 mg of intravenous Lexiscan, resting heart rate 77 bpm, resting blood pressure 127/55 mmHg, with Lexiscan maximum heart rate achived was 79 bpm which is Less than 85 % of the maximum predicted heart rate and blood pressure was 135/53 mmHg. With Lexiscan, patient denied any complaint of chest pain. Electrocardiogram Resting electrocardiogram showed atrial fibrillation, with Lexiscan there is less than 1.[address] segment depression noted from the baseline EKG. The EKG portion of the Lexiscan is nondiagnostic. Cardiac Stress and Resting SPECT Images: Cardiac Stress and Resting SPECT images were obtained using technetium 99m Myoview 31.5 mCi stress and 10.03 mCi at rest. Gated SPECT for analysis of segmental wall motion and calculation of the ejection fraction also done. Cardiac stress and rest SPECT images show partial reversible defect involving the inferolateral and posterolateral wall consistent with mixed ischemia and scar, computer derived ejection fraction is 21% with marked posterolateral wall hypokinesis, however during this study patient was in atrial fibrillation that may underestimate the ejection fraction by gated SPECT. Conclusion: 1. The EKG portion of the Lexiscan is nondiagnostic. 2. Scintigraphic evidence of mixed ischemia and scar involving the posterolateral and lateral wall, computer derived ejection fraction 21% with segmental wall motion abnormality described above, however during the study patient was in atrial fibrillation which may underestimate the ejection fraction by gated SPECT. 3. Abnormal Lexiscan Myoview study. Electronically signed by : Maxim Bradshaw MD 01/02/2022 17:28:49
--- NOTE | 2022-01-02 12:54 | CA_ITS ---
APPROVED REPORT EXAM: Comprehensive 2D, Doppler, and color-flow Echocardiogram Proofing Machine Operator: Radha Coffey RT(R) Ht: 5 ft 5 in Wt: 205lbs BSA: 2.00 BP: 133/61 mmHg Indications: CP, CAD, AICD, AFIB, CHF, CABG, edema, HTN, DM, hyperlipidemia. Echo Enhancing Agent Indication: Endocardial border delineation Agent(s) / Amount(s) Used: Definity 2 cc 2D Dimensions LVOT 2.00 cm (M/F) 1.5-2.5 LA Volume 93.00 mL LA Volume Index 46.50 mL/m2 (M/F) 16-34 M-Mode Dimensions RVDd 2.77 cm (0.9-2.6) LA Diam 5.33 cm (1.9-4.0) LVDd 5.88 cm (3.5-5.7) Ao Diam 3.07 cm (2.0-3.7) LVDs 5.29 cm (3.5-5.7) IVSd 1.13 cm (0.6-1.1) PWd 1.09 cm (0.6-1.1) EF (Teich) 21.60% FS 10.00% EDV (Teich) 171.90 mL ESV (Teich) 134.80 mL Aortic Valve LVOT Max 89.00 (70-110 cm/s) LVOT VTI 18.82 cm AoV Peak Jerman. 112.00 (50-130 cm/s) AI PHT 300.00 ms AO Peak GR. 5.00 mmHg AO Mean GR. 2.50 (<5 mmHg) AO VTI 24.57 (18-25 cm) RISHI (VTI) 2.41 (2.5-4.5 cm2) Tricuspid Valve TR P. Velocity 303.00 cm/s RAP Estimate 15.00 mmHg RVSP 51.80 mmHg Left Ventricle Technically difficult study because of the patient factors and poor acoustic windows, Definity contrast was utilized to delineate the endocardial surfaces. Left atrium is moderately enlarged, left ventricle is mildly dilated, there is severe left ventricular systolic dysfunction, estimated ejection fraction 20%, left ventricle is globally hypokinetic, there is no left ventricular thrombus seen. Right Ventricle Right atrium and right ventricle are mildly enlarged with normal contractility, there is an AICD lead seen in right ventricle. Aortic Valve Aortic valve is thickened and calcified without aortic stenosis, there is mild aortic insufficiency. Mitral Valve Mitral valve leaflets are minimally thickened, there is mild mitral regurgitation. Tricuspid Valve Tricuspid valve is grossly normal, there is mild tricuspid regurgitation, calculated right ventricular systolic pressure is 50 mmHg. Pulmonic Valve Pulmonic valve is poorly visualized. Great Vessels Aortic root is normal size. Inferior vena cava is poorly visualized. 1. Pericardium No significant pericardial effusion noted. Conclusion 1. Technically difficult study, Definity contrast was utilized to delineate the endocardial surface. Dilated left ventricle, severe left ventricular systolic dysfunction, estimated ejection fraction 20% left ventricle is globally hypokinetic. Diastolic parameters are inconclusive. 2. Mildly enlarged right ventricle with normal contractility. 3. Mild aortic, mitral and tricuspid regurgitation. Calculated right ventricular systolic pressure is 50 mmHg. 4. No significant pericardial effusion noted. 5. Inferior vena cava is poorly visualized. Electronically signed by : Maxim Bradshaw MD 01/04/2022 15:35:02
== END ==
PROVIDERS: PCP Internal Medicine Adolescent Medicine; Visit Provider Physician Assistant
DX: R06.00 Dyspnea, unspecified; R06.01 Orthopnea; R06.02 Shortness of breath; R07.9 Chest pain, unspecified; I25.118 Atherosclerotic heart disease of native coronary artery with other forms of angina pectoris; I11.0 Hypertensive heart disease with heart failure; I50.22 Chronic systolic (congestive) heart failure; E11.9 Type 2 diabetes mellitus without complications; E78.2 Mixed hyperlipidemia; N28.9 Disorder of kidney and ureter, unspecified; R60.0 Localized edema; Z79.4 Long term (current) use of insulin
CPT/HCPCS: 78452; 93017; 93306; A9502; J2785

== ENCOUNTER → 2022-04-01 10:32 | Outpatient (CLI) | payer MEDICARE, MEDICAID, SELFPAY ==
[2022-04-01 11:25] LABS: Basophils # 0.1 K/mm3 (0-0.2); Basophils % 1.3 % (0.1-2.0); Eosinophils # 0.4 K/mm3 (0.0-0.4); Eosinophils % 5.7 % (0.1-12.0); Hematocrit 35.3 % (42.0-52.0); Hemoglobin 11.3 g/dL (14.1-18.0); Lymphocytes # 2.6 K/mm3 (0.7-4.5); Lymphocytes % 36.2 % (10-50); Mean Corpuscular Hemoglobin 30.8 pg (27.0-31.2); Mean Corpuscular Volume 96.2 fl (80-94); Mean Platelet Volume 8.5 fl (7.4-10.4); Monocytes # 0.3 K/mm3 (0.1-1.0); Monocytes % 4.8 % (1.7-9.3); Neutrophils # 3.7 K/mm3 (1.8-7.8); Platelet Count 148 K/mm3 (142-424); Red Blood Count 3.67 M/mm3 (4.60-6.20); Red Cell Distribution Width 18.4 % (11.5-17.5); White Blood Count 7.1 K/mm3 (4.8-10.8)
[2022-04-01 11:48] LABS: Anion Gap 14.5 mEq/L (5-15); Blood Urea Nitrogen 53 mg/dl (9-20); Calcium 9.1 mg/dl (8.4-10.2); Carbon Dioxide 27 mmol/L (22.0-30.0); Chloride 104 mmol/L (98-107); Estimated Glomerular Filt Rate 27 ml/min (>60); GFR (African American) 33 ML/MIN (>60); Glucose 97 mg/dl (74-100); Potassium 4.5 mmoL/L (3.5-5.1); Sodium 141 mmol/L (136-145)
== END ==
PROVIDERS: PCP Internal Medicine Adolescent Medicine; Visit Provider Nurse Practitioner Family
DX: E11.9 Type 2 diabetes mellitus without complications; E78.2 Mixed hyperlipidemia; I11.0 Hypertensive heart disease with heart failure; I20.9 Angina pectoris, unspecified; I48.2 Chronic atrial fibrillation; I50.42 Chronic combined systolic (congestive) and diastolic (congestive) heart failure; N28.9 Disorder of kidney and ureter, unspecified; R06.00 Dyspnea, unspecified; R06.01 Orthopnea; R06.02 Shortness of breath; R07.9 Chest pain, unspecified; R60.0 Localized edema; R94.30 Abnormal result of cardiovascular function study, unspecified; Z79.4 Long term (current) use of insulin; Z95.1 Presence of aortocoronary bypass graft; Z95.810 Presence of automatic (implantable) cardiac defibrillator
CPT/HCPCS: 36415; 80048; 85025

== ENCOUNTER 2022-04-04 15:29 | Observation (INO) | payer MEDICARE, MEDICAID, SELFPAY ==
[2022-04-04] VITALS (80 sets, daily range): BP systolic 94–162; BP diastolic 45–109; PULSE 19–90; RESP 16–20; TEMP 36.3–37.4; O2SAT 93–100; BMI 33.6; BMI 33.0; BMI 33.3
--- NOTE | 2022-04-04 09:32 | IR_ITS ---
APPROVED REPORT Patient Location: Outpatient PROCEDURES Left heart catheterization Selective coronary angiogram Selective engagement of the left internal mammary artery Selective engagement of the saphenous vein graft to the diagonal artery Selective engagement of the saphenous vein graft to the circumflex artery Selective engagement of the saphenous vein graft to the right coronary Bilateral selective renal angiography Left femoral arterial access Right common iliac artery angioplasty INDICATION Recalcitrant angina pectoris, Coronary artery disease, History of coronary bypass surgery, Chronic renal failure creatinine 2.3, Peripheral artery disease Informed consent was obtained prior to the procedure. COMPLICATIONS See below Estimated Blood Loss: Less than 10 mls TECHNIQUE One percent lidocaine used to anesthetize the right groin. The right femoral artery was accessed via the Seldinger technique and a 5 Czech sheath was placed in the right femoral artery. A JL 4, JR4 catheter were used to perform left heart catheterization, selective coronary angiography as well as selective engagement of the 3 vein grafts and the left internal mammary artery. Because of patient's hypertension and creatinine of 2.3 bilateral selective renal angiography was performed. Prior to this the 5 Czech sheath was exchanged for a 6 Czech sheath. There was significant tortuosity through the iliofemoral artery which prevented adequate torquing of the 5 Czech catheter. Ultimately a 45 cm 6 Czech sheath was exchanged for the 5 Czech sheath which allowed a 6 Czech CLAYTON guide catheter to perform selective CLAYTON engagement as well as selective engagement of the 2 vein grafts which were occluded. A 5 Czech multipurpose catheter was used to cannulate the saphenous vein graft to the right coronary artery. At the end of the procedure the apparatus was removed the groin is reprepped closure changed sheath was removed and Perclose device was used to attempt hemostasis. Upon deployment of the footplate the suture did not penetrate the calcified artery. Attempts were made to disengage the footplate however the footplate could not be adequately retracted. There appeared to be a mechanical breach at the anastomosis between the plastic and metal portion of the Perclose device. The metal portion broke and removed from the plastic portion which was left inside the patient's iliofemoral artery. The plastic portion then became subcutaneous and could not be digitally maintained. Patient was bleeding at the groin site therefore significant pressure was applied to completely occlude pressure. 2 hands and heavy pressure were required in order to maintain hemostasis of the right common femoral artery. At this point while the range technician and nurse held pressure on the right groin 1% lidocaine was used anesthetize the left groin and the left femoral artery was accessed via the Salinger technique. A 6 Czech sheath was placed in the left femoral artery and a rim catheter was advanced to the distal abdominal aorta. A long advantage wire was then advanced under fluoroscopic guidance into the distal right external iliac artery. This allowed a 10 mm x 40 mm balloon to be deployed in the right common iliac artery at 6 estrlela which completely obturated all flow down the right leg. With the balloon in place manual pressure in the right groin could then be relieved. With no bleeding in the right groin an 11 blade scalpel was used to make a 3 cm incision directly over the previous cutaneous entry point. Small amount of dissecting using hemostats was necessary to locate the Perclose device which were then clamped with hemostats and then the entire plastic device was remove
[2022-04-04 12:12] LABS: Basophils # 0.1 K/mm3 (0-0.2); Eosinophils # 0.3 K/mm3 (0.0-0.4); Eosinophils % 5.6 % (0.1-12.0); Hematocrit 30.1 % (42.0-52.0); Hemoglobin 9.1 g/dL (14.1-18.0); Lymphocytes # 1.3 K/mm3 (0.7-4.5); Lymphocytes % 24.9 % (10-50); Mean Corpuscular HGB Conc 30.3 g/dL (31.8-35.4); Mean Corpuscular Hemoglobin 29.7 pg (27.0-31.2); Mean Platelet Volume 8.8 fl (7.4-10.4); Monocytes # 0.3 K/mm3 (0.1-1.0); Monocytes % 5.2 % (1.7-9.3); Neutrophils # 3.2 K/mm3 (1.8-7.8); Neutrophils % 63.3 % (37.0-80.0); Platelet Count 114 K/mm3 (142-424); Red Blood Count 3.07 M/mm3 (4.60-6.20); Red Cell Distribution Width 18.4 % (11.5-17.5); White Blood Count 5.1 K/mm3 (4.8-10.8)
[2022-04-04 12:26] LABS: Microscopic, Urine URINE MICROSCOPIC (MICROSCOPIC)
[2022-04-04 12:27] LABS: Appearance,Urine CLEAR (Clear); Bilirubin,Urine Negative (Negative); Blood, Urine TRACE-I (Negative); Color,Urine YELLOW (Yellow); Glucose,Urine (UA) Negative (Negative); Ketones,Urine Negative (Negative); Leukocyte Esterase,Urine Negative (Negative); Nitrate,Urine Negative (Negative); Protein,Urine TRACE (Negative); Specific Gravity, Urine 1.015 (1.005-1.030); Urobilinogen,Urine 0.2 EU/dl (0.2)
[2022-04-04 12:39] LABS: RBC,Urine Occasional #/hpf (0-3)
--- NOTE | 2022-04-04 13:36 | EXP.CARD.CON ---
History of Present Illness History of Present Illness Consult date: 04/04/22 Requesting physician: Hardik Decker Chief complaint: [facility] complication Additional Medical History:: Significant past medical history: History of systolic heart failure- BiV AICD in place- Coronary artery disease-EMMA to left main 10/2019. Previous history of CABG Hypertension Chronic A. fib-A/C with Eliquis Diabetes mellitus Hyperlipidemia Chronic renal insufficiency Chronic anemia/thrombocytopenia Echo 01/02/2022 Conclusion 1.? Technically difficult study, Definity contrast was utilized to delineate the endocardial surface.? Dilated left ventricle, severe left ventricular systolic dysfunction, estimated ejection fraction 20% left ventricle is globally hypokinetic.? Diastolic parameters are inconclusive. 2.? Mildly enlarged right ventricle with normal contractility. 3.? Mild aortic, mitral and tricuspid regurgitation.? Calculated right ventricular systolic pressure is 50 mmHg. 4.? No significant pericardial effusion noted. 5.? Inferior vena cava is poorly visualized. History of present illness: 81-year-old white male, with above past medical history, presented to [facility] today for outpatient scheduled left heart cath for evaluation of abnormal stress test and unstable angina. Patient was admitted after complication during procedure, see note below. [facility] 04/04/2022 TECHNIQUE One percent lidocaine used to anesthetize the right groin. The right femoral artery was accessed via the Seldinger technique and a 5 Zambian sheath was placed in the right femoral artery. A JL 4, JR4 catheter were used to perform left heart catheterization, selective coronary angiography as well as selective engagement of the 3 vein grafts and the left internal mammary artery.? Because of patient's hypertension and creatinine of 2.3 bilateral selective renal angiography was performed.? Prior to this the 5 [place]ambian sheath was exchanged for a 6 Zambian sheath.? There was significant tortuosity through the iliofemoral artery which prevented adequate torquing of the 5 [place]ambian catheter.? Ultimately a 45 cm 6 Zambian sheath was exchanged for the 5 Zambian sheath which allowed a 6 Zambian CLAYTON guide catheter to perform selective CLAYTON engagement as well as selective engagement of the 2 vein grafts which were occluded.? A 5 [place]ambian multipurpose catheter was used to cannulate the saphenous vein graft to the right coronary artery.? At the end of the procedure the apparatus was removed the groin is reprepped closure changed sheath was removed and Perclose device was used to attempt hemostasis.? Upon deployment of the footplate the suture did not penetrate the calcified artery.? Attempts were made to disengage the footplate however the footplate could not be adequately retracted.? There appeared to be a mechanical breach at the anastomosis between the plastic and metal portion of the Perclose device.? The metal portion broke and removed from the plastic portion which was left inside the patient's iliofemoral artery.? The plastic portion then became subcutaneous and could not be digitally maintained.? Patient was bleeding at the groin site therefore significant pressure was applied to completely occlude pressure.? 2 hands and heavy pressure were required in order to maintain hemostasis of the right common femoral artery.? At this point while the clinical office technician and nurse held pressure on the right groin 1% lidocaine was used anesthetize the left groin and the left femoral artery was accessed via the Salinger technique.? A 6 Zambian sheath was placed in the left femoral artery and a rim catheter was advanced to the distal abdominal aorta.? A long advantage wire was then advanced under fluoroscopic guidance into the distal right external iliac artery.? This allowed a 10 mm x 40 mm balloon to be deployed in the right common iliac artery at 6 estrella which completely obturated all flow down the right leg.? With the balloon in place manual pres
--- NOTE | 2022-04-04 14:20 | SUR.PHASEII ---
Fem stop removed per dr villanueva, stated to set pt up for suturing
--- NOTE | 2022-04-04 14:24 | SUR.PHASEII ---
Sterile drape applied to right groin incision, lidocaine injected to right groin
--- NOTE | 2022-04-04 14:34 | SUR.PHASEII ---
Nakul at bedside to suturing patient
--- NOTE | 2022-04-04 14:53 | SUR.PHASEII ---
Dr villanueva finished procedure, pt tolerated well, sterile dressing applied to site
--- NOTE | 2022-04-04 15:30 | SUR.PHASEII ---
Clarified with Dr villanueva if it was okay for pt to sit up at 8 tonight, stated that was fine.
--- NOTE | 2022-04-04 15:41 | PC.NURSE ---
Pt arrived to the floor at this time
--- NOTE | 2022-04-04 15:57 | EXP.HP ---
History of Present Illness *Admission Date: 04/04/22 *Reason for visit:: Postprocedural bleeding *History of present illness: Mr. Jara is a pleasant 81-year-old male with past medical history of systolic heart failure, obesity, diabetes, chronic kidney disease, atrial fibrillation, who presented to the [facility] today for outpatient scheduled left heart cath. Cath performed due to abnormal stress test and unstable angina. Patient also complains of having had some mild nausea (only eating 1-2 meals a day because of upset stomach), chronic shortness of breath, chest pressure, and generalized malaise for the past several weeks. Denies any fever, confusion, headache, diarrhea. Patient's left heart cath went well until time for closure of arterial access. Due to device failure, patient had a complication with postprocedural bleeding. Given his comorbidities, extent of bleeding, and need for remaining supine and serial labs, patient admitted for observation overnight. Patient has no active bleeding at the time of assessment. Is alert and oriented lying supine in bed. Denies significant pain at right and left inguinal access points. [facility] Disclaimer: The information contained in this section may have been updated after the patient was seen, as this information can be updated by other users. Medical History Abnormal result of cardiovascular function study Biventricular implantable cardioverter-defibrillator in situ Fatigue Systolic heart failure Typical angina Unstable angina Family History Family history of cancer Family history of hypertension Family history of myocardial infarction Family history of hyperlipidemia Social History Smoking Status: Never smoker second hand exposure: No alcohol intake: never substance use type: denies use current occupational status: retired Travel in the last 8 weeks: Inside the [place] household members: none housing: house current occupational exposures/hazards: No caffeine: Yes Review of Systems Review of Systems Review of systems (narrative): 14 point review of systems performed, pertinent positives and negatives as per HPI Meds Home Medications and Allergies Home Medications Medication Instructions Recorded Confirmed Type omeprazole 20 mg capsule,delayed 20 mg PO HS STOMACH 05/03/17 04/04/22 History release tamsulosin 0.4 mg capsule 0.4 mg PO HS urinary retention 05/03/17 04/04/22 History allopurinol 100 mg tablet 200 mg PO DAILY GOUT 05/06/17 04/04/22 History nitroglycerin 0.4 mg sublingual 0.4 mg sublingual Q5M PRN Chest 05/27/17 04/04/22 History tablet (Nitrostat) Pain rosuvastatin 5 mg tablet 5 mg PO HS Cholesterol 07/27/18 04/04/22 History finasteride 5 mg tablet 5 mg PO HS PROSTATE/URINARY 09/28/18 04/04/22 History potassium chloride 10 mEq 10 meq PO BID Supplement 09/28/18 04/04/22 History capsule,extended release furosemide 80 mg tablet 80 mg PO DAILY Fluid #30 tabs 12/23/18 04/04/22 Rx bisoprolol fumarate 5 mg tablet 5 mg PO DAILY Heart rhythm 03/22/19 04/04/22 History gabapentin 400 mg capsule 400 mg PO DAILY pain 03/22/19 04/04/22 History insulin glargine 100 unit/mL 50 unit SQ HS Diabetes 03/22/19 04/04/22 History subcutaneous solution sacubitril 24 mg-valsartan 26 mg 1 tab PO BID High blood pressure 03/22/19 04/04/22 History tablet isosorbide mononitrate 60 mg 30 mg PO DAILY . 07/03/20 04/04/22 History tablet,extended release 24 hr lidocaine 5 % topical patch 1 each topical Q24H PRN Mild To 09/30/21 04/04/22 Rx Moderate Pain #5 patches naproxen 500 mg tablet 500 mg PO BID PRN Mild To Moderate 09/30/21 04/04/22 Rx Pain #30 tabs apixaban 2.5 mg tablet 2.5 mg PO BID Blood thinner #60 11/22/21 04/04/22 Rx tabs clopidogrel 75 mg tablet 75 mg PO DAILY Heart disease
[2022-04-04 16:49] LABS: POC Glucose,Bedside 221 (70-110)
--- NOTE | 2022-04-04 18:17 | EXP.DC.SUM ---
General Admission date:: 04/04/22 Discharge date: 04/05/22 HPI HPI HPI: Mr. Jara is a pleasant 81-year-old male with past medical history of systolic heart failure, obesity, diabetes, chronic kidney disease, atrial fibrillation, who presented to the [facility] today for outpatient scheduled left heart cath. Cath performed due to abnormal stress test and unstable angina. Patient also complains of having had some mild nausea (only eating 1-2 meals a day because of upset stomach), chronic shortness of breath, chest pressure, and generalized malaise for the past several weeks. Denies any fever, confusion, headache, diarrhea. Patient's left heart cath went well until time for closure of arterial access. Due to device failure, patient had a complication with postprocedural bleeding. Given his comorbidities, extent of bleeding, and need for remaining supine and serial labs, patient admitted for observation overnight. Patient has no active bleeding at the time of assessment. Is alert and oriented lying supine in bed. Denies significant pain at right and left inguinal access points. Hospital Course Hospital Course Hospital Course: Mr. Jara is an 81-year-old male with significant past medical history.? Presented initially for outpatient left heart cath, had complication during closure of insertion site leading to significant bleeding.? Patient admitted for observation overnight and serial H&H.? Hemodynamically stable at this time.? No active signs of bleeding on exam.? Problems addressed as follows: Procedural complication during LHC/device malfunction/post op bleeding Postprocedural anemia Coronary artery disease Chronic heart failure with reduced ejection fraction Chronic A. fib -Cardiology consulted, appreciate their recommendations.? Discussed case with cardiology, patient stable to discharge home. Serial hemoglobins show stable levels. Did not require any transfusions. No active signs of bleeding during admission. We will continue to hold apixaban, reevaluate resumption at follow-up with cardiology. Needs to follow cardiology in 10 days for removal of sutures. Plan to continue Plavix 75mg p.o. daily, bisoprolol 5 mg p.o. daily, Crestor 5 mg p.o. daily and Imdur ER 30 mg p.o. daily, Lasix 80 mg daily, Entresto 24/26 mg twice daily. Reviewed chart, ejection fraction 20% on echo obtained December. BiV AICD in place CKD BPH -Currently at baseline creatinine 2.1-2.3.? Monitor daily. Stable during admission. Gentle fluid rehydration overnight to minimize risk for AMY from contrast administered during heart cath. Continued meds for prostate including finasteride and tamsulosin Diabetes -Managed with lower dose glargine and sliding scale insulin during hospitalization. Resume diabetes regimen at discharge. Case management consulted to assist with referral to home health. Patient stable for discharge home. Will discharge with home health to assist with PT/OT/halfway. Exam Data for Last 24 hours Vital signs and Labs for Last 24 Hours: Temp Pulse Resp BP Pulse Ox 97.3 F L 79 20 107/52 L 96 04/04/22 15:35 04/04/22 18:00 04/04/22 18:00 04/04/22 18:00 04/04/22 18:00 Laboratory Results - last 24 hr 04/04/22 11:50: Blood Type A Positive, Antibody Screen Negative, Crossmatch (AHG) See Detail 04/04/22 11:50: WBC 5.1, RBC 3.07 L, Hgb 9.1 L, Hct 30.1 L, MCV 98.0 H, MCH 29.7, MCHC 30.3 L, RDW 18.4 H, Plt Count 114 L, MPV 8.8, Neut % (Auto) 63.3, Lymph % (Auto) 24.9, [place] % (Auto) 5.2, Eos % (Auto) 5.6, Baso % (Auto) 1.0, Neut # (Auto) 3.2, Lymph # (Auto) 1.3, [place] # (Auto) 0.3, Eos # (Auto) 0.3, Baso # (Auto) 0.1 04/04/22 15:01: Blood Type Confirm A Positive 04/04/22 16:39: POC Glucose 221 H 04/04/22 : Urine Color Yellow, Urine Appearance Clear, Urine pH 5.0, Ur Specific [place] 1.015, Urine Protein Trace, Urine Glucose (UA) Negative, Urine Ketones Negative, Urine Blood Trace-i, Urine Nitrate Negative, Urine Bilirubin
--- NOTE | 2022-04-04 19:10 | PC.NURSE ---
Angi Goddard RN and Taty Dawkins RN will be providing care under my direct supervision.
[2022-04-04 19:29] LABS: Chloride 107 mmol/L (98-107)
[2022-04-04 19:30] LABS: Potassium 4.6 mmoL/L (3.5-5.1); Sodium 141 mmol/L (136-145)
[2022-04-04 19:32] LABS: Alanine Aminotransferase 16 U/L (12-78); Aspartate Amino Transferase 24 U/L (17-59); Blood Urea Nitrogen 50 mg/dl (9-20); Creatinine Clearance Estimated 35 mL/min (50-200); Estimated Glomerular Filt Rate 30 ml/min (>60); GFR (African American) 37 ML/MIN (>60)
[2022-04-04 19:33] LABS: Albumin Level 3.3 g/dl (3.5-5.0); Albumin/Globulin Ratio 1.1 (1.1-1.8); Alkaline Phosphatase 84 U/L (38-126); Anion Gap 12.6 mEq/L (5-15); Bilirubin,Total 0.7 mg/dl (0.2-1.3); Calcium 8.4 mg/dl (8.4-10.2); Carbon Dioxide 26 mmol/L (22.0-30.0); Globulin 2.9 g/dL (1.3-3.2); Glucose 217 mg/dl (74-100); Total Protein,Serum 6.2 g/dl (6.3-8.2)
[2022-04-04 19:34] LABS: Basophils # 0.1 K/mm3 (0-0.2); Basophils % 0.5 % (0.1-2.0); Eosinophils # 0.2 K/mm3 (0.0-0.4); Eosinophils % 1.6 % (0.1-12.0); Hematocrit 31.3 % (42.0-52.0); Lymphocytes % 10.1 % (10-50); Mean Corpuscular HGB Conc 32.8 g/dL (31.8-35.4); Mean Corpuscular Hemoglobin 31.9 pg (27.0-31.2); Mean Corpuscular Volume 97.4 fl (80-94); Mean Platelet Volume 8.6 fl (7.4-10.4); Monocytes # 0.4 K/mm3 (0.1-1.0); Monocytes % 4.3 % (1.7-9.3); Neutrophils # 8.4 K/mm3 (1.8-7.8); Neutrophils % 83.5 % (37.0-80.0); Platelet Count 123 K/mm3 (142-424); Red Blood Count 3.21 M/mm3 (4.60-6.20); Red Cell Distribution Width 18.4 % (11.5-17.5)
[2022-04-04 20:12] LABS: Hemoglobin 10.2 g/dL (14.1-18.0)
[2022-04-04 22:24] LABS: POC Glucose,Bedside 225 (70-110)
[2022-04-05] VITALS: BP 143/64; PULSE 70; PULSE 83; RESP 15; TEMP 37.6; O2SAT 95
[2022-04-05 02:05] VITALS: TEMP 37.7
[2022-04-05 03:59] VITALS: BMI 33.2
[2022-04-05 04:00] VITALS: PULSE 80
[2022-04-05 05:50] VITALS: TEMP 37.5
[2022-04-05 06:04] LABS: POC Glucose,Bedside 183 (70-110)
--- NOTE | 2022-04-05 06:09 | PC.NURSE ---
Pt rested well this shift, has had no complaint VS remain stable, Pt remains on RA and tolerates well. Dressing to right femoral cath site started to peel off, dressing changed, scant amount of blood noted to dressing. 2 sutures and purple bruising noted to right femoral area. Dressing to left femoral cath site c/d/i. Bilat pedal pulses 2+ strength. Chavez catheter removed at 0600 this morning. Total UO this shift 475 ml. Pt fsbs 225 and 183 this shift, medicated per SSI.
[2022-04-05 07:36] LABS: Basophils # 0.1 K/mm3 (0-0.2); Basophils % 0.7 % (0.1-2.0); Eosinophils # 0.2 K/mm3 (0.0-0.4); Eosinophils % 2.6 % (0.1-12.0); Hematocrit 32.2 % (42.0-52.0); Lymphocytes # 1.6 K/mm3 (0.7-4.5); Lymphocytes % 17.4 % (10-50); Mean Corpuscular HGB Conc 31.2 g/dL (31.8-35.4); Mean Corpuscular Hemoglobin 30.5 pg (27.0-31.2); Mean Corpuscular Volume 97.8 fl (80-94); Mean Platelet Volume 9.2 fl (7.4-10.4); Monocytes # 0.5 K/mm3 (0.1-1.0); Neutrophils # 6.7 K/mm3 (1.8-7.8); Neutrophils % 74.4 % (37.0-80.0); Platelet Count 112 K/mm3 (142-424); Red Blood Count 3.29 M/mm3 (4.60-6.20); Red Cell Distribution Width 18.5 % (11.5-17.5)
[2022-04-05 07:40] VITALS: TEMP 37.2
[2022-04-05 07:44] LABS: Coronavirus 19, PCR Not Detected (NotDetected); Influenza A, PCR Not Detected (NotDetected); Influenza B, PCR Not Detected (NotDetected)
[2022-04-05 07:51] LABS: Alanine Aminotransferase 15 U/L (12-78); Albumin Level 3.3 g/dl (3.5-5.0); Albumin/Globulin Ratio 1.2 (1.1-1.8); Alkaline Phosphatase 78 U/L (38-126); Anion Gap 10.3 mEq/L (5-15); Aspartate Amino Transferase 21 U/L (17-59); Bilirubin,Total 0.6 mg/dl (0.2-1.3); Blood Urea Nitrogen 49 mg/dl (9-20); Calcium 8.4 mg/dl (8.4-10.2); Carbon Dioxide 26 mmol/L (22.0-30.0); Chloride 107 mmol/L (98-107); Creatinine Clearance Estimated 34 mL/min (50-200); Estimated Glomerular Filt Rate 29 ml/min (>60); GFR (African American) 35 ML/MIN (>60); Globulin 2.7 g/dL (1.3-3.2); Glucose 143 mg/dl (74-100); Magnesium 2.2 mg/dl (1.6-2.3); Potassium 4.3 mmoL/L (3.5-5.1); Sodium 139 mmol/L (136-145)
[2022-04-05 08:00] VITALS: BP 121/46; PULSE 70; RESP 16; O2SAT 95
--- NOTE | 2022-04-05 09:14 | SW/DCPLANNER ---
Addendum entered by Nusrat Clitfon 04/05/22 09:42: Ashanti vann/ [facility] stated that services will start Friday for this patient. Original Note: I spoke with this patient regarding plans once medically stable for discharge. Patient stated that he does well at home and family checks on him often. Patient has used [facility] in the past and is agreeable to use their services at discharge. Patient information/order will be faxed to [facility] today. Patient will discharge home later today.
--- NOTE | 2022-04-05 09:54 | EXP.CARD.PN ---
Subjective Subjective Date: 04/05/22 Time: 08:00 Principal diagnosis: post op complication, device malfunction, bleeding risk Interval history: Patient had no events throughout the evening. Labs and vitals remained stable. Right groin- Dry dressing intact, min bruising noted, no swelling noted. abdomen is soft, non-tender with normal BS present throughout. Exam Data for Last 24 hours Vital signs and Labs for Last 24 Hours: Temp Pulse Resp BP Pulse Ox 99 F 80 15 143/64 H 95 04/05/22 07:40 04/05/22 04:00 04/05/22 00:00 04/05/22 00:00 04/05/22 00:00 Laboratory Results - last 24 hr 04/04/22 11:50: Blood Type A Positive, Antibody Screen Negative, Crossmatch (AHG) See Detail 04/04/22 11:50: WBC 5.1, RBC 3.07 L, Hgb 9.1 L, Hct 30.1 L, MCV 98.0 H, MCH 29.7, MCHC 30.3 L, RDW 18.4 H, Plt Count 114 L, MPV 8.8, Neut % (Auto) 63.3, Lymph % (Auto) 24.9, [place] % (Auto) 5.2, Eos % (Auto) 5.6, Baso % (Auto) 1.0, Neut # (Auto) 3.2, Lymph # (Auto) 1.3, [place] # (Auto) 0.3, Eos # (Auto) 0.3, Baso # (Auto) 0.1 04/04/22 15:01: Blood Type Confirm A Positive 04/04/22 16:39: POC Glucose 221 H 04/04/22 19:10: Sodium 141, Potassium 4.6, Chloride 107, Carbon Dioxide 26, Anion Gap 12.6, BUN 50 H, Creatinine 2.10 H, Estimated Creat Clear 35, Estimated GFR 30 L, Est GFR ( Amer) 37 L, Glucose 217 H, Calcium 8.4, Total Bilirubin 0.7, AST 24, ALT 16, Alkaline Phosphatase 84, Total Protein 6.2 L, Albumin 3.3 L, Globulin 2.9, Albumin/Globulin Ratio 1.1 04/04/22 19:10: WBC 10.0 D, RBC 3.21 L, Hgb 10.2 L D, Hct 31.3 L, MCV 97.4 H, MCH 31.9 H, MCHC 32.8, RDW 18.4 H, Plt Count 123 L, MPV 8.6, Neut % (Auto) 83.5 H, Lymph % (Auto) 10.1, [place] % (Auto) 4.3, Eos % (Auto) 1.6, Baso % (Auto) 0.5, Neut # (Auto) 8.4 H, Lymph # (Auto) 1.0, [place] # (Auto) 0.4, Eos # (Auto) 0.2, Baso # (Auto) 0.1 04/04/22 22:00: POC Glucose 225 H 04/04/22 : Urine Color Yellow, Urine Appearance Clear, Urine pH 5.0, Ur Specific [place] 1.015, Urine Protein Trace, Urine Glucose (UA) Negative, Urine Ketones Negative, Urine Blood Trace-i, Urine Nitrate Negative, Urine Bilirubin Negative, Urine Urobilinogen 0.2, Ur Leukocyte Esterase Negative, Urine RBC Occasional, Urine WBC 3-5, Ur Squamous Epith Cells 3-5, Urine Bacteria None 04/05/22 05:44: POC Glucose 183 H 04/05/22 07:26: WBC 9.0, RBC 3.29 L, Hgb 10.0 L, Hct 32.2 L, MCV 97.8 H, MCH 30.5, MCHC 31.2 L, RDW 18.5 H, Plt Count 112 L, MPV 9.2, Neut % (Auto) 74.4, Lymph % (Auto) 17.4, [place] % (Auto) 5.0, Eos % (Auto) 2.6, Baso % (Auto) 0.7, Neut # (Auto) 6.7, Lymph # (Auto) 1.6, [place] # (Auto) 0.5, Eos # (Auto) 0.2, Baso # (Auto) 0.1 04/05/22 07:26: Sodium 139, Potassium 4.3, Chloride 107, Carbon Dioxide 26, Anion Gap 10.3, BUN 49 H, Creatinine 2.20 H, Estimated Creat Clear 34, Estimated GFR 29 L, Est GFR ( Amer) 35 L, Glucose 143 H D, Calcium 8.4, Magnesium 2.2, Total Bilirubin 0.6, AST 21, ALT 15, Alkaline Phosphatase 78, Total Protein 6.0 L, Albumin 3.3 L, Globulin 2.7, Albumin/Globulin Ratio 1.2 04/05/22 07:37: SARS-CoV-2 (PCR) Not detected, Influenza A Untype (PCR) Not detected, Influenza Type B (PCR) Not detected I & O for Last 24 hours: Intake & Output 04/02/22 04/03/22 04/04/22 04/05/22 23:59 23:59 23:59 23:59 Intake Total 600 / 600 600 / 600 Output Total 150 / 150 850 / 850 Balance 450 / 450 -250 / -250 Weight 200 lb 199 lb 6 oz Constitutional Constitutional: no acute distress *Routine Respiratory Exam Respiratory: Present CTA bilaterally and symmetric chest movement *Routine Cardiovascular Exam Cardiovascular: Present Normal S1 and Normal S2 *Routine Abdominal Exam Abdominal: Present soft and normoactive bowel sounds; Absent tenderness *Routine Extremities Exam Extremities: Present full ROM and normal capillary refill; Absent edema Comments: Right groin site. Mild bruising noted, no active bleeding present. Dressing dry and intact. No obvious swelling noted. Right leg is pink and warm with strong DP and PT pulses present. *Rou
--- NOTE | 2022-04-08 14:04 | CARE MANAGER ---
Spoke with patient for post-discharge phone interview, patient states that he is dong well and has no needs at this time. He did tell me that home health called and wanteed to come do some therapy and he didnt feel like he needed it I did encourage him to let them come and see if they can help with other services for him.
== END 2022-04-05 12:51 | disposition home health service (06) ==
LOC: 2ND 15:55
PROVIDERS: Internal Medicine; Admitting Provider Internal Medicine Adolescent Medicine; PCP Internal Medicine Adolescent Medicine; Visit Provider Internal Medicine Adolescent Medicine
DX: I25.720 Atherosclerosis of autologous artery coronary artery bypass graft(s) with unstable angina pectoris (principal); I25.82 Chronic total occlusion of coronary artery; N18.4 Chronic kidney disease, stage 4 (severe); Z95.1 Presence of aortocoronary bypass graft; I48.20 Chronic atrial fibrillation, unspecified; I50.22 Chronic systolic (congestive) heart failure; Z79.4 Long term (current) use of insulin; Z79.01 Long term (current) use of anticoagulants; E11.22 Type 2 diabetes mellitus with diabetic chronic kidney disease; I25.110 Atherosclerotic heart disease of native coronary artery with unstable angina pectoris; I13.0 Hypertensive heart and chronic kidney disease with heart failure and stage 1 through stage 4 chronic kidney disease, or unspecified chronic kidney disease; T81.718A Complication of other artery following a procedure, not elsewhere classified, initial encounter; Z95.810 Presence of automatic (implantable) cardiac defibrillator; Y71.3 Surgical instruments, materials and cardiovascular devices (including sutures) associated with adverse incidents
CPT/HCPCS: G0378; G0379; 36252; 36415; 37197; 37220; 80048; 80053; 81001; 82962; 83735; 85025; 86850; 93459; 99152; 99153; C1725; C1760; C1766; C1769; C1894; C9803; J1644; Q9967; U0003; U0005

== ENCOUNTER → 2022-04-16 12:29 | Outpatient (CLI) | payer MEDICARE, MEDICAID, SELFPAY ==
[2022-04-16 13:10] LABS: Hematocrit 32.1 % (42.0-52.0); Hemoglobin 10.6 g/dL (14.1-18.0)
[2022-04-16 14:11] LABS: Blood Urea Nitrogen 51 mg/dl (9-20); Estimated Glomerular Filt Rate 32 ml/min (>60); GFR (African American) 39 ML/MIN (>60)
== END ==
PROVIDERS: PCP Internal Medicine Adolescent Medicine; Visit Provider Internal Medicine
DX: I25.10 Atherosclerotic heart disease of native coronary artery without angina pectoris (principal); I97.610 Postprocedural hemorrhage of a circulatory system organ or structure following a cardiac catheterization
CPT/HCPCS: 36415; 82565; 84520; 85014; 85018

== ENCOUNTER → 2022-09-30 17:10 | Outpatient (CLI) | payer MEDICARE, MEDICAID, SELFPAY ==
[2022-09-30 16:15] LABS: Basophils # 0.1 K/mm3 (0-0.2); Basophils % 0.8 % (0.1-2.0); Eosinophils # 0.3 K/mm3 (0.0-0.4); Eosinophils % 4.9 % (0.1-12.0); Hematocrit 34.5 % (42.0-52.0); Hemoglobin 10.5 g/dL (14.1-18.0); Lymphocytes # 1.9 K/mm3 (0.7-4.5); Mean Corpuscular HGB Conc 30.3 g/dL (31.8-35.4); Mean Corpuscular Hemoglobin 27.6 pg (27.0-31.2); Mean Corpuscular Volume 91.1 fl (80-94); Mean Platelet Volume 8.4 fl (7.4-10.4); Monocytes # 0.4 K/mm3 (0.1-1.0); Monocytes % 5.5 % (1.7-9.3); Neutrophils # 4.2 K/mm3 (1.8-7.8); Neutrophils % 60.8 % (37.0-80.0); Platelet Count 165 K/mm3 (142-424); Red Blood Count 3.79 M/mm3 (4.60-6.20); Red Cell Distribution Width 19.2 % (11.5-17.5); White Blood Count 6.8 K/mm3 (4.8-10.8)
[2022-09-30 17:12] LABS: Alanine Aminotransferase 15 U/L (12-78); Albumin Level 3.2 g/dl (3.5-5.0); Albumin/Globulin Ratio 1.1 (1.1-1.8); Alkaline Phosphatase 135 U/L (38-126); Anion Gap 8.7 mEq/L (5-15); Aspartate Amino Transferase 21 U/L (17-59); Bilirubin,Total 0.6 mg/dl (0.2-1.3); Blood Urea Nitrogen 47 mg/dl (9-20); Carbon Dioxide 30 mmol/L (22.0-30.0); Chloride 104 mmol/L (98-107); Estimated Glomerular Filt Rate 34 ml/min (>60); GFR (African American) 41 ML/MIN (>60); Glucose 186 mg/dl (74-100); Potassium 4.7 mmoL/L (3.5-5.1); Sodium 138 mmol/L (136-145); Total Protein,Serum 6.2 g/dl (6.3-8.2)
[2022-09-30 17:40] LABS: Thyroid Stimulating Hormone 2.71 uIU/mL (0.465-4.68)
[2022-10-01 14:17] LABS: Hemoglobin A1C 9.2 % (4.0-6.0)
== END ==
PROVIDERS: PCP Family Medicine; Visit Provider Family Medicine
DX: I25.10 Atherosclerotic heart disease of native coronary artery without angina pectoris; I48.91 Unspecified atrial fibrillation; L98.9 Disorder of the skin and subcutaneous tissue, unspecified; R73.9 Hyperglycemia, unspecified; Z79.4 Long term (current) use of insulin
CPT/HCPCS: 80053; 83036; 84443; 85025

== ENCOUNTER 2022-10-31 08:09 | Day surgery (SDC) | payer MEDICARE, MEDICAID, SELFPAY ==
[2022-10-31 08:29] VITALS: BP 117/54; PULSE 80; RESP 18; TEMP 36.2; O2SAT 96; BMI 29.6
--- NOTE | 2022-10-31 09:29 | EXP.OP.NOTE ---
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 He was maintained in the supine position. His right lateral neck and right forearm were prepped and draped in a sterile fashion. After infiltration with local anesthetic elliptical incisions were made around both lesions. The deep subcutaneous tissue was dissected with a combination of sharp dissection and electrocautery. The lesions were excised in toto and passed off for pathologic evaluation. Electrocautery was utilized to achieve hemostasis at both sites. Skin was reapproximated with 4-0 nylon in an interrupted/mattress fashion. Dressings were applied and the patient was discharged in stable condition. Condition: stable Disposition: no change Specimens:: 1.5 cm right lateral neck skin neoplasm 2.5 cm right forearm skin neoplasm Complications:: No immediate
[2022-10-31 10:09] VITALS: BP 122/44; PULSE 69; RESP 18; O2SAT 95
[2022-10-31 10:27] LABS: POC Glucose,Bedside 294 (70-110)
== END 2022-10-31 10:00 | disposition home or self-care (01) ==
PROVIDERS: PCP Internal Medicine Adolescent Medicine; Visit Provider Surgery
DX: C44.40 Unspecified malignant neoplasm of skin of scalp and neck (principal); C44.622 Squamous cell carcinoma of skin of right upper limb, including shoulder; E11.9 Type 2 diabetes mellitus without complications
CPT/HCPCS: 11603; 11622; 82962; 88305; 88341; 88342

== ENCOUNTER 2022-11-01 08:57 | Observation (INO) | payer MEDICARE, MEDICAID, SELFPAY ==
[2022-11-01] VITALS (10 sets, daily range): BP systolic 100–130; BP diastolic 48–71; PULSE 60–92; RESP 17–20; TEMP 36.8–37.7; O2SAT 94–98; BMI 29.1; BMI 32.1
--- NOTE | 2022-11-01 09:18 | XR_ITS ---
FINAL REPORT CLINICAL HISTORY: dyspnea COMPARISON: 01/01/2021 FINDINGS: SINGLE-VIEW CHEST There is moderate cardiomegaly. The patient is status post median sternotomy. A pacer is identified. There is scarring at the bases. There is no pneumothorax. IMPRESSION: No acute cardiopulmonary process. Reviewed, Interpreted and Dictated by Lionel Medrano MD Transcribed by Kathi Doran Authenticated and . [facility]
[2022-11-01 09:29] LABS: Basophils # 0.1 K/mm3 (0-0.2); Basophils % 0.3 % (0.1-2.0); Eosinophils # 0.1 K/mm3 (0.0-0.4); Eosinophils % 0.3 % (0.1-12.0); Hematocrit 33.9 % (42.0-52.0); Hemoglobin 10.7 g/dL (14.1-18.0); Lymphocytes # 1.5 K/mm3 (0.7-4.5); Lymphocytes % 9.6 % (10-50); Mean Corpuscular HGB Conc 31.6 g/dL (31.8-35.4); Mean Corpuscular Hemoglobin 28.9 pg (27.0-31.2); Mean Corpuscular Volume 91.5 fl (80-94); Mean Platelet Volume 8.4 fl (7.4-10.4); Monocytes # 0.7 K/mm3 (0.1-1.0); Monocytes % 4.6 % (1.7-9.3); Neutrophils # 13.4 K/mm3 (1.8-7.8); Neutrophils % 85.1 % (37.0-80.0); Platelet Count 133 K/mm3 (142-424); Red Blood Count 3.71 M/mm3 (4.60-6.20); Red Cell Distribution Width 18.7 % (11.5-17.5); White Blood Count 15.8 K/mm3 (4.8-10.8)
[2022-11-01 09:33] LABS: MANUAL DIFFERENTIAL MANUAL DIFFERENTIAL (MANUAL DIFF)
[2022-11-01 09:34] LABS: Chloride 99 mmol/L (98-107); Sodium 135 mmol/L (136-145)
[2022-11-01 09:35] LABS: Activated Partial Thrombo Time 31.6 seconds (22.8-30.6); Prothrombin Time 12.8 seconds (10.1-12.5)
--- NOTE | 2022-11-01 09:36 | ECG_ITS ---
APPROVED REPORT Exam: Resting ECG HR:89 bpm ECG Measurements Heart Rate 89 AXES QRSd 121 QRS 21 QT 412 T 187 QTc 459 Conclusion ATRIAL FIBRILLATION POSSIBLE ANTERIOR MYOCARDIAL INFARCTION , PROBABLY OLD [30 ms Q WAVE IN V3/V4, OR R < 0.2 mV IN V4] MODERATE T-WAVE ABNORMALITY, CONSIDER LATERAL ISCHEMIA [-0.1+ mV T-WAVE IN I/aVL/V5/V6] ABNORMAL ECG UNCONFIRMED REPORT Electronically signed by : Kervin Rodríguez MD 11/01/2022 15:28:40
[2022-11-01 09:37] LABS: Alanine Aminotransferase 27 U/L (12-78); Albumin Level 3.4 g/dl (3.5-5.0); Alkaline Phosphatase 132 U/L (38-126); Aspartate Amino Transferase 31 U/L (17-59); Bilirubin,Total 1.7 mg/dl (0.2-1.3); Blood Urea Nitrogen 49 mg/dl (9-20); Calcium 9.2 mg/dl (8.4-10.2); Carbon Dioxide 23 mmol/L (22.0-30.0); Creatinine Clearance Estimated 29 mL/min (50-200); Estimated Glomerular Filt Rate 29 ml/min (>60); GFR (African American) 35 ML/MIN (>60); Globulin 3.3 g/dL (1.3-3.2); Glucose 287 mg/dl (74-100); Total Protein,Serum 6.7 g/dl (6.3-8.2)
--- NOTE | 2022-11-01 09:42 | HMH.EDGENADL ---
Discharge Plan Disposition Patient Disposition: Admitted Prescriptions Prescriptions: No Action (DME) Accu-Chek Terrie Plus test strp Strip See Rx Instructions .ROUTE .MEDSUPPLY Qty: 10 Patient Comments: USE DIRECTED THREE TIMES DAILY Rx Instructions: As directed (DME) pen needle, diabetic [Pen Needle] 32 gauge x 5/32 needle See Rx Instructions .ROUTE .MEDSUPPLY Qty: 1200 Patient Comments: USE ONE INTRAMUSCULARLY NEEDED FOR diabetic injections Rx Instructions: As directed nitroglycerin [Nitrostat] 0.4 mg tablet, sublingual 0.4 mg SUBLINGUAL Q5M PRN (Reason: Chest Pain) gabapentin 400 mg capsule 400 mg PO DAILY sacubitril-valsartan 24-26 mg tablet 1 tab PO BID bisoprolol fumarate 5 mg tablet 5 mg PO DAILY furosemide 80 mg tablet 80 mg PO DAILY Qty: 30 2RF clopidogrel 75 mg tablet 75 mg PO DAILY Qty: 90 3RF rosuvastatin 5 MG tablet 5 mg PO HS potassium chloride 10 MEQ capsule, extended release 10 meq PO BID finasteride 5 MG tablet 5 mg PO HS tamsulosin 0.4 MG capsule 0.4 mg PO HS omeprazole 20 MG capsule,delayed release(DR/EC) 20 mg PO HS allopurinol 100 tablet 200 mg PO DAILY Patient Comments: isosorbide mononitrate 30 mg tablet extended release 24 hr 45 mg PO DAILY insulin glargine [Lantus Solostar U-100 Insulin] 100 unit/mL (3 mL) insulin pen 56 unit SQ HS Eliquis 2.5 mg tablet 2.5 mg PO BID torsemide 40 mg tablet 40 mg PO DAILY Referrals Follow up/Referrals: Kervin Rodríguez MD [Primary Care Provider] - See instructions Clinical Impressions Clinical Impression: Non-ST elevation DE (NSTEMI), Post-op bleeding, Thrombocytopenia, Anticoagulated, Adverse effect of antiplatelet agent, Atypical chest pain, Generalized weakness Instructions Patient Instructions: DI for Skin Abscess Discharge ED Provider: Trell Bell General Adult HPI General Chief complaint: Skin/Abscess/Foreign Body Stated complaint: post op pain Time Seen by Provider: 11/01/22 09:04 Mode of Arrival: Family Vehicle Source of Information: Patient, Relative and Medical Record Limitations: No Limitations Description of Symptoms (Recalled from ER Triage Doc. by RN): Pt presents to ER with concern for weakness and continued bleeding from surgical site R forearm. Dr. Farnsworth removed lesion to pt's R forearm 10/31. Family has reinforced the dressing 2x and continued to seep through the dressings. Pt was up to the bathroom around 0600 this morning and family called EMS out d/t not being able to get pt up and out of the house. EMS placed pt in the [employer] car and she drove him to the ER. Pt reports to be dizzy, fatigued, and unable ot ambulate wo assistance at this time. Pt also reports anterior chest pain when trying to not use my [right] arm . Pt is on Plavix. He has had an exstensive cardiac hx of 10 coronary stents, 2 CABG (6 total vessel bypass), pacemaker & defib implant, HTN, and HLD. History of Present Illness HPI narrative: 82-year-old male here with weakness chest pain and significant bruising from her recent operative site from yesterday. Per operative notes and notes from Dr. Win he was seen yesterday and had lesion excised from his right arm which was presumed to be a squamous cell carcinoma and also a lesion on his left neck which is presumed to be a basal cell carcinoma. Patient is on Eliquis and Plavix and these were not held prior to the surgical procedure and he is continued to have significant oozing soaking through his dressing needing to be replaced by his daughter who is at the bedside. Since yesterday and the significant bleeding he has felt lightheaded as well as some chest discomfort. States that this only happens with exertion and he currently is not having any chest pain. Related Data Home Medications Medication Instructions Recorded Confirmed omeprazole 20 mg ca
--- NOTE | 2022-11-01 09:57 | PC.NURSE ---
MARTY Bell speaking with Dr. Rodríguez
--- NOTE | 2022-11-01 10:03 | PC.NURSE ---
notified care management of admission
[2022-11-01 10:19] LABS: Lymphocytes % 14 % (10-50); Monocytes % 5 % (2-9); Neutrophils % 81 % (42-76); RBC Morphology Normal; Total Cells Counted 100
[2022-11-01 10:20] LABS: Platelet Estimate Slight Decrease
--- NOTE | 2022-11-01 10:48 | PC.NURSE ---
Lillie from cardiology at bedside
--- NOTE | 2022-11-01 10:54 | HMH.PHAINT1 ---
Pharmacy Intervention Comments: MEDICATION RECONCILIATION COMPLETED ON PATIENT USING EXTERNAL FILL HISTORY FROM PHARMACY. -[facility]ESA, [place]
--- NOTE | 2022-11-01 10:54 | PC.NURSE ---
Attempted to call report to Eric ZAPATA, however he is unavailable at this time. He will call back when he is available.
--- NOTE | 2022-11-01 10:54 | EXP.CARD.CON ---
History of Present Illness History of Present Illness Consult date: 11/01/22 Requesting physician: Kervin Rodríguez Chief complaint: weakness and bleeding from procedure site History of present illness: 82-year-old white male with past medical history of coronary artery disease s/p bypass and stenting with a medical management heart cath in May 2022, ischemic cardiomyopathy status post AICD placement with a known ejection fraction of 20%, and chronic A-fib on Eliquis presented to emergency department with complaints of bleeding from right arm and neck operative sites where patient had suspicious lesions removed by Dr. Win yesterday. Patient reports he takes both Plavix and Eliquis and did not hold either of them prior to procedure. Reports has had continued blood loss especially from the right arm site associated with mild chest pain and generalized weakness. Patient reports he only experiences chest pain with exertion not at rest. Patient denies shortness of breath, dizziness, nausea. Upon presentation to emergency department EKG showed A-fib with a rate of 89 without acute ischemic changes noted. Labs as follow: WBC 15.8,Hemoglobin 10.7, Sodium 135, potassium 4.0, BUN 49, creatinine 2.2 which is close to baseline and a troponin of 0.10. Repeat troponin is pending. Silver nitrate was applied to arm and hemostasis was achieved. Patient will be admitted for observation and cardiology was asked to evaluate for possible NSTEMI and management of antiplatelet and oral anticoagulant therapy. Patient is currently resting in the emergency department comfortably and denies chest pain or shortness of breath presently. [facility] Disclaimer: The information contained in this section may have been updated after the patient was seen, as this information can be updated by other users. Medical History (Updated 11/01/22 @ 11:08 by Lillie Galaviz APRN) Abnormal result of cardiovascular function study Acute HFrEF (heart failure with reduced ejection fraction) Biventricular implantable cardioverter-defibrillator in situ Fatigue Hyperglycemia Systolic heart failure Typical angina Unstable angina Surgical History (Updated 10/31/22 @ 08:32 by Yaquelin Sage RN) H/O heart artery stent History of cataract surgery History of cholecystectomy History of colonoscopy Hx of CABG Family History Other Family history of cancer Family history of hyperlipidemia Family history of hypertension Family history of myocardial infarction Social History (Updated 10/31/22 @ 08:33 by Yaquelin Sage RN) Smoking Status: Former smoker pack-years: 30 second hand exposure: No alcohol intake: never substance use type: denies use current occupational status: retired Travel in the last 8 weeks: None housing: house current occupational exposures/hazards: No caffeine: Yes Review of Systems *Cardiovascular Cardiovascular: Reports chest pain and Denies dyspnea Comments: Generalized weakness *Respiratory Respiratory: Denies dyspnea *Musculoskeletal Comments: Bleeding from neck and right arm postoperative sites Exam Data for Last 24 hours Vital signs and Labs for Last 24 Hours: Temp Pulse Resp BP Pulse Ox O2 Del Method 99.6 F 75 17 124/61 96 Room Air 11/01/22 08:58 11/01/22 08:58 11/01/22 08:58 11/01/22 08:58 11/01/22 08:58 11/01/22 08:58 Laboratory Results - last 24 hr 11/01/22 09:09: WBC 15.8 H, RBC 3.71 L, Hgb 10.7 L, Hct 33.9 L, MCV 91.5, MCH 28.9, MCHC 31.6 L, RDW 18.7 H, Plt Count 133 L, MPV 8.4, Neut % (Auto) 85.1 H, Lymph % (Auto) 9.6 L, Collin % (Auto) 4.6, Eos % (Auto) 0.3, Baso % (Auto) 0.3, Neut # (Auto) 13.4 H, Lymph # (Auto) 1.5, Collin # (Auto) 0.7, Eos # (Auto) 0.1, Baso # (Auto) 0.1, Total Counted 100, Neutrophils % (Manual) 81 H, Lymphocytes % (Manual) 14, Monocytes % (Manual) 5, Platelet Estimate Slight decrease, RBC Morphology Normal, PT 12.8 H,
--- NOTE | 2022-11-01 11:19 | PC.NURSE ---
Called report to Eric ZAPATA on med-surg. Family updated and staff will take pt to his room.
--- NOTE | 2022-11-01 11:24 | PC.NURSE ---
arrived by stretcher from ED
[2022-11-01 13:46] LABS: Troponin I 0.19 ng/ml (0.00-0.034)
[2022-11-01 14:27] LABS: Basophils % 0.2 % (0.1-2.0); Eosinophils % 0.3 % (0.1-12.0); Hematocrit 33.8 % (42.0-52.0); Hemoglobin 10.8 g/dL (14.1-18.0); Lymphocytes # 1.3 K/mm3 (0.7-4.5); Lymphocytes % 9.2 % (10-50); Mean Corpuscular Hemoglobin 28.8 pg (27.0-31.2); Mean Corpuscular Volume 89.9 fl (80-94); Mean Platelet Volume 8.6 fl (7.4-10.4); Monocytes # 0.7 K/mm3 (0.1-1.0); Neutrophils # 12.4 K/mm3 (1.8-7.8); Neutrophils % 85.3 % (37.0-80.0); Platelet Count 128 K/mm3 (142-424); Red Blood Count 3.75 M/mm3 (4.60-6.20); Red Cell Distribution Width 18.7 % (11.5-17.5); White Blood Count 14.5 K/mm3 (4.8-10.8)
[2022-11-01 14:29] LABS: Chloride 99 mmol/L (98-107)
[2022-11-01 14:30] LABS: Potassium 3.9 mmoL/L (3.5-5.1); Sodium 135 mmol/L (136-145)
[2022-11-01 14:32] LABS: Blood Urea Nitrogen 47 mg/dl (9-20); Creatinine Clearance Estimated 32 mL/min (50-200); Estimated Glomerular Filt Rate 29 ml/min (>60); GFR (African American) 35 ML/MIN (>60)
[2022-11-01 14:33] LABS: Anion Gap 13.9 mEq/L (5-15); Calcium 9.1 mg/dl (8.4-10.2); Carbon Dioxide 26 mmol/L (22.0-30.0); Glucose 271 mg/dl (74-100)
[2022-11-01 15:00] LABS: Troponin I 0.24 ng/ml (0.00-0.034)
--- NOTE | 2022-11-01 15:03 | PC.NURSE ---
dr. ovalle's office called about pt's trending up troponin of 0.24
--- NOTE | 2022-11-01 16:22 | EXP.HP ---
History of Present Illness *Admission Date: 11/01/22 *Reason for visit:: weakness *History of present illness: Chief complaint: weakness and bleeding from procedure site History of present illness: 82-year-old white male with past medical history of coronary artery disease s/p bypass and stenting with a medical management heart cath in May 2022, ischemic cardiomyopathy status post AICD placement with a known ejection fraction of 20%, and chronic A-fib on Eliquis presented to emergency department with complaints of bleeding from right arm and neck operative sites where patient had suspicious lesions removed by Dr. Win yesterday. Patient reports he takes both Plavix and Eliquis and did not hold either of them prior to procedure. Reports has had continued blood loss especially from the right arm site associated with mild chest pain and generalized weakness. Patient reports he only experiences chest pain with exertion not at rest. Patient denies shortness of breath, dizziness, nausea. Upon presentation to emergency department EKG showed A-fib with a rate of 89 without acute ischemic changes noted. Labs as follow: WBC 15.8,Hemoglobin 10.7, Sodium 135, potassium 4.0, BUN 49, creatinine 2.2 which is close to baseline and a troponin of 0.10. Repeat troponin is pending. Silver nitrate was applied to arm and hemostasis was achieved. Patient will be admitted for observation and cardiology was asked to evaluate for possible NSTEMI and management of antiplatelet and oral anticoagulant therapy. [facility] Disclaimer: The information contained in this section may have been updated after the patient was seen, as this information can be updated by other users. Medical History (Updated 11/01/22 @ 11:08 by Lillie Galaviz APRN) Abnormal result of cardiovascular function study Acute HFrEF (heart failure with reduced ejection fraction) Biventricular implantable cardioverter-defibrillator in situ Fatigue Hyperglycemia Systolic heart failure Typical angina Unstable angina Surgical History (Updated 10/31/22 @ 08:32 by Yaquelin Sage RN) H/O heart artery stent History of cataract surgery History of cholecystectomy History of colonoscopy Hx of CABG Family History Other Family history of cancer Family history of hyperlipidemia Family history of hypertension Family history of myocardial infarction Social History (Updated 10/31/22 @ 08:33 by Yaquelin Sage RN) Smoking Status: Former smoker pack-years: 30 second hand exposure: No alcohol intake: never substance use type: denies use current occupational status: retired Travel in the last 8 weeks: None housing: house current occupational exposures/hazards: No caffeine: Yes Review of Systems Review of Systems Review of systems:: pertinent systems reviewed and negative unless documented below Meds Home Medications and Allergies Home Medications Medication Instructions Recorded Confirmed Type omeprazole 20 mg capsule,delayed 20 mg PO DAILY Acid Reflux 05/03/17 11/01/22 History release tamsulosin 0.4 mg capsule 0.4 mg PO DAILY Prostate 05/03/17 11/01/22 History allopurinol 100 mg tablet 100 mg PO BID GOUT 05/06/17 11/01/22 History nitroglycerin 0.4 mg sublingual 0.4 mg sublingual Q5MINP PRN Chest 05/27/17 11/01/22 History tablet (Nitrostat) Pain rosuvastatin 5 mg tablet 5 mg PO DAILY Cholesterol 07/27/18 11/01/22 History finasteride 5 mg tablet 5 mg PO DAILY Prostate 09/28/18 11/01/22 History potassium chloride 10 mEq 10 meq PO BID Supplement 09/28/18 11/01/22 History capsule,extended release furosemide 80 mg tablet 80 mg PO DAILY Fluid #30 tabs 12/23/18 11/01/22 Rx bisoprolol fumarate 5 mg tablet 5 mg PO DAILY Heart Rhythm 03/22/19 11/01/22 History gabapentin 400 mg capsule 400 mg PO HS pain 03/22/19 11/01/22 History sacubitril 24 mg-valsartan 26 mg 1 tab PO BID High blood pressure 03/22/1911/01
[2022-11-01 20:38] LABS: POC Glucose,Bedside 242 (70-110)
[2022-11-02] VITALS: BP 108/53; PULSE 60; PULSE 82; RESP 18; TEMP 37.6; O2SAT 94
[2022-11-02 04:00] VITALS: BP 95/47; PULSE 86; RESP 18; TEMP 37.4; O2SAT 95; BMI 32.7
--- NOTE | 2022-11-02 06:28 | PC.NURSE ---
Patient rested well this shift. No complaints voiced, dressings clean dry and intact to right arm and neck no bleeding noted. Vitals WNL, remains on RA. Call dale and personal items in reach POC ongoing.
[2022-11-02 06:34] LABS: POC Glucose,Bedside 196 (70-110)
[2022-11-02 07:46] LABS: Basophils # 0.1 K/mm3 (0-0.2); Basophils % 0.4 % (0.1-2.0); Eosinophils # 0.3 K/mm3 (0.0-0.4); Eosinophils % 2.1 % (0.1-12.0); Hematocrit 33.8 % (42.0-52.0); Hemoglobin 10.8 g/dL (14.1-18.0); Lymphocytes % 14.8 % (10-50); Mean Corpuscular HGB Conc 31.8 g/dL (31.8-35.4); Mean Corpuscular Hemoglobin 29.1 pg (27.0-31.2); Mean Corpuscular Volume 91.3 fl (80-94); Mean Platelet Volume 8.5 fl (7.4-10.4); Monocytes # 0.7 K/mm3 (0.1-1.0); Monocytes % 4.7 % (1.7-9.3); Neutrophils # 10.7 K/mm3 (1.8-7.8); Neutrophils % 77.9 % (37.0-80.0); Platelet Count 122 K/mm3 (142-424); Red Cell Distribution Width 18.9 % (11.5-17.5); White Blood Count 13.8 K/mm3 (4.8-10.8)
[2022-11-02 07:54] VITALS: BP 108/51; PULSE 83; RESP 16; TEMP 37.2; O2SAT 93; BMI 32.5
[2022-11-02 08:00] VITALS: PULSE 90
[2022-11-02 08:12] LABS: Chloride 102 mmol/L (98-107); Potassium 4.2 mmoL/L (3.5-5.1); Sodium 135 mmol/L (136-145)
[2022-11-02 08:15] LABS: Anion Gap 14.2 mEq/L (5-15); Blood Urea Nitrogen 56 mg/dl (9-20); Calcium 9.1 mg/dl (8.4-10.2); Carbon Dioxide 23 mmol/L (22.0-30.0); Creatinine Clearance Estimated 30 mL/min (50-200); Estimated Glomerular Filt Rate 26 ml/min (>60); GFR (African American) 32 ML/MIN (>60); Glucose 174 mg/dl (74-100)
--- NOTE | 2022-11-02 08:38 | EXP.DC.SUM ---
General Admission date:: 11/01/22 Discharge date: 11/02/22 HPI HPI HPI: Chief complaint: weakness and bleeding from procedure site History of present illness: 82-year-old white male with past medical history of coronary artery disease s/p bypass and stenting with a medical management heart cath in May 2022, ischemic cardiomyopathy status post AICD placement with a known ejection fraction of 20%, and chronic A-fib on Eliquis presented to emergency department with complaints of bleeding from right arm and neck operative sites where patient had suspicious lesions removed by Dr. Win yesterday. Patient reports he takes both Plavix and Eliquis and did not hold either of them prior to procedure. Reports has had continued blood loss especially from the right arm site associated with mild chest pain and generalized weakness. Patient reports he only experiences chest pain with exertion not at rest. Patient denies shortness of breath, dizziness, nausea. Upon presentation to emergency department EKG showed A-fib with a rate of 89 without acute ischemic changes noted. Labs as follow: WBC 15.8,Hemoglobin 10.7, Sodium 135, potassium 4.0, BUN 49, creatinine 2.2 which is close to baseline and a troponin of 0.10. Repeat troponin is pending. Silver nitrate was applied to arm and hemostasis was achieved. Patient will be admitted for observation and cardiology was asked to evaluate for possible NSTEMI and management of antiplatelet and oral anticoagulant therapy. Hospital Course Hospital Course Hospital Course: Patient was admitted, troponins were positive for non-STEMI but cardiology felt that this was based on his CHF and stress from recent bleeding. Recent heart cath showed no significant disease and they felt that cath would not be appropriate in this position. Also recommended some adjustments in his CHF medications based on his elevated renal function, including stopping Entresto and continuing isosorbide as well as adding low-dose hydralazine. This will be done at discharge. Patient was watched overnight, no further chest pain. Renal insufficiency was monitored, stable. CBC was monitored, also stable. Patient will be discharged home. His Plavix will be discontinued given his recent bleeding and length of time since stent placement. I have sent a prescription for hydralazine, we have also stopped Entresto. He will continue low-dose long-acting Imdur. He will be followed up closely in our office on November 05. He is actually missed a couple of appointments in our office and so will encourage him to be more compliant with his follow-ups. He is globally fairly weak, but has been able to do self-care activities in the hospital. He does not wish consideration for home health. His son does a great job watching over him and he will be around over the next couple of days until we see him back in the office. Exam Data for Last 24 hours Vital signs and Labs for Last 24 Hours: Temp Pulse Resp BP Pulse Ox O2 Del Method 99.0 F 83 16 108/51 L 93 L Room Air 11/02/22 07:54 11/02/22 07:54 11/02/22 07:54 11/02/22 07:54 11/02/22 07:54 11/02/22 07:54 Laboratory Results - last 24 hr 11/01/22 09:09: WBC 15.8 H, RBC 3.71 L, Hgb 10.7 L, Hct 33.9 L, MCV 91.5, MCH 28.9, MCHC 31.6 L, RDW 18.7 H, Plt Count 133 L, MPV 8.4, Neut % (Auto) 85.1 H, Lymph % (Auto) 9.6 L, Deuel % (Auto) 4.6, Eos % (Auto) 0.3, Baso % (Auto) 0.3, Neut # (Auto) 13.4 H, Lymph # (Auto) 1.5, Deuel # (Auto) 0.7, Eos # (Auto) 0.1, Baso # (Auto) 0.1, Total Counted 100, Neutrophils % (Manual) 81 H, Lymphocytes % (Manual) 14, Monocytes % (Manual) 5, Platelet Estimate Slight decrease, RBC Morphology Normal, PT 12.8 H, INR 1.20 H, APTT 31.6 H, Sodium 135 L, Potassium 4.0, Chloride 99, Carbon Dioxide 23, Anion Gap 17.0 H, BUN 49 H, Creatinine 2.20 H, Estimated Creat Clear 29, Estimated GFR 29 L, Est GFR ( Amer) 35 L, Glucose 287 H, Calcium 9.2, Total Bilirubin 1.7 H, AST 3
--- NOTE | 2022-11-04 15:11 | CARE MANAGER ---
Spoke with patient for post-discharge phone interview, no issues noted.
== END 2022-11-02 09:35 | disposition home or self-care (01) ==
LOC: ER 10:02 → 2ND 10:43
PROVIDERS: Admitting Provider Internal Medicine Adolescent Medicine; Emergency Provider Student in an Organized Health Care Education/Training Program; PCP Internal Medicine Adolescent Medicine; Visit Provider Internal Medicine Adolescent Medicine
DX: L76.22 Postprocedural hemorrhage of skin and subcutaneous tissue following other procedure (principal); Z95.1 Presence of aortocoronary bypass graft; Z95.810 Presence of automatic (implantable) cardiac defibrillator; I48.91 Unspecified atrial fibrillation; N28.9 Disorder of kidney and ureter, unspecified; I25.10 Atherosclerotic heart disease of native coronary artery without angina pectoris; R77.8 Other specified abnormalities of plasma proteins; I21.4 Non-ST elevation (NSTEMI) myocardial infarction; D69.6 Thrombocytopenia, unspecified; E78.5 Hyperlipidemia, unspecified; Z79.4 Long term (current) use of insulin; I11.0 Hypertensive heart disease with heart failure; Z87.891 Personal history of nicotine dependence; I50.23 Acute on chronic systolic (congestive) heart failure
CPT/HCPCS: 35860; 36415; 71045; 80048; 80053; 82962; 84484; 85007; 85025; 85610; 85730; 93005; 99291; G0378

== ENCOUNTER 2022-11-06 09:44 | Observation (INO) | payer MEDICARE, MEDICAID, SELFPAY ==
[2022-11-06] VITALS (14 sets, daily range): BP systolic 91–111; BP diastolic 46–56; PULSE 72–91; RESP 16–19; TEMP 36.6–36.8; O2SAT 96–100; BMI 33.3; BMI 32.0
--- NOTE | 2022-11-06 09:42 | ECG_ITS ---
APPROVED REPORT Exam: Resting ECG HR:92 bpm ECG Measurements Heart Rate 92 AXES QRSd 123 QRS 93 QT 409 T 211 QTc 458 Conclusion ATRIAL FIBRILLATION BORDERLINE RIGHT AXIS DEVIATION [QRS AXIS > 90] MODERATE INTRAVENTRICULAR CONDUCTION DELAY [110+ ms QRS DURATION] ST DEVIATION AND MODERATE T-WAVE ABNORMALITY, CONSIDER LATERAL ISCHEMIA [-0.1+ mV T-WAVE IN I/aVL/V5/V6] ST DEVIATION AND MODERATE T-WAVE ABNORMALITY, CONSIDER INFERIOR ISCHEMIA [-0.1+ mV T-WAVE IN II/aVF] ABNORMAL ECG UNCONFIRMED REPORT Electronically signed by : Kervin Rodríguez MD 11/07/2022 18:37:18
--- NOTE | 2022-11-06 09:52 | CT_ITS ---
FINAL REPORT TECHNIQUE: Axial images were obtained through the chest without contrast. CLINICAL HISTORY: left sided chest popping after lifting COMPARISON: None FINDINGS: There is streak artifact from left upper anterior chest wall pacer. There are multiple median sternotomy wires. There is multichambered cardiomegaly. There are dense coronary artery calcifications in the aortic arch. There is no pericardial or pleural effusion. There is chronic scarring at the lung bases. No suspicious infiltrate or nodule identified. No acute fractures. IMPRESSION: No acute findings. Multichambered cardiomegaly. Reviewed, Interpreted and Dictated by Lionel Medrano MD Transcribed by Evelia Garcia Authenticated and . [facility]
--- NOTE | 2022-11-06 09:52 | CT_ITS ---
FINAL REPORT TECHNIQUE: Axial images through the abdomen and pelvis were performed without contrast. This study was performed with techniques to keep radiation doses as low as reasonably achievable, (ALARA). Individualized dose reduction techniques using automated exposure control or adjustment of mA and/or kV according to the patient's size were employed. CLINICAL HISTORY: fall, L flank and lumbar spine pain COMPARISON: 05/14/2021 FINDINGS: Abdomen: The liver parenchyma is homogeneous. The gallbladder is not identified. The spleen is unremarkable. The pancreas is atrophic. The adrenal glands appear unremarkable. The kidneys have lobular peripheral margins. There is a cyst along the anterior aspect of the left kidney measuring 2.5 cm. Pelvis: The urinary bladder is distended. The appendix is not visualized. There is no pelvic mass or inflammation. No acute bony abnormality. IMPRESSION: No acute abnormality. Left renal cyst. Reviewed, Interpreted and Dictated by Lionel Medrano MD Transcribed by Evelia Garcia Authenticated and [facility]
--- NOTE | 2022-11-06 09:53 | CT_ITS ---
FINAL REPORT TECHNIQUE: Axial images were obtained of the thoracic spine by computed tomography. Coronal and sagittal reconstruction process performed. This study was performed with techniques to keep radiation doses as low as reasonably achievable (ALARA). Individualized dose reduction techniques using automated exposure control or adjustment of mA and/or kV according to the patient's size were employed. CLINICAL HISTORY: Mid back pain after fall COMPARISON: None FINDINGS: Thoracic vertebrae show normal height. There is thoracic scoliosis convex to the right of about 10 degrees. There is no evidence of malalignment. There are moderate hypertrophic changes of degenerative disc disease throughout the mid and lower thoracic spine. On the axial images, there is no evidence of fracture. IMPRESSION: Degenerative changes without acute process. Reviewed, Interpreted and Dictated by Lionel Medrano MD Transcribed by Evelia Garcia Authenticated and [facility]
--- NOTE | 2022-11-06 09:54 | CT_ITS ---
FINAL REPORT TECHNIQUE: Axial images were obtained of the lumbar spine by computed tomography. Coronal and sagittal reconstruction process performed. This study was performed with techniques to keep radiation doses as low as reasonably achievable (ALARA). Individualized dose reduction techniques using automated exposure control or adjustment of mA and/or kV according to the patient''s size were employed. CLINICAL HISTORY: fall, L spine pain 3 days ago COMPARISON: None FINDINGS: There is vacuum disc phenomenon at L3-4, L4-5, and L5-S1. There is advanced disc base narrowing at L4-5 and L5-S1. There is bilateral facet sclerosis in the lower lumbar spine. No compression deformities are identified. There is no evidence of malalignment. There is significant bilateral neuroforaminal narrowing at L4-5 and L5-S1. IMPRESSION: No acute abnormality. Reviewed, Interpreted and Dictated by Lionel Medrano MD Transcribed by Evelia Garcia Authenticated and [facility]
--- NOTE | 2022-11-06 09:58 | HMH.EDGENADL ---
Discharge Plan Disposition Patient Disposition: Admitted Chief Complaint: Weakness Prescriptions Prescriptions: No Action (DME) Accu-Chek Terrie Plus test strp Strip See Rx Instructions .ROUTE .MEDSUPPLY Qty: 10 Patient Comments: USE DIRECTED THREE TIMES DAILY Rx Instructions: As directed (DME) pen needle, diabetic [Pen Needle] 32 gauge x 5/32 needle See Rx Instructions .ROUTE .MEDSUPPLY Qty: 1200 Patient Comments: USE ONE INTRAMUSCULARLY NEEDED FOR diabetic injections Rx Instructions: As directed nitroglycerin [Nitrostat] 0.4 mg tablet, sublingual 0.4 mg SUBLINGUAL Q5MINP PRN (Reason: Chest Pain) gabapentin 400 mg capsule 400 mg PO HS bisoprolol fumarate 5 mg tablet 5 mg PO DAILY furosemide 80 mg tablet 80 mg PO DAILY Qty: 30 2RF rosuvastatin 5 MG tablet 5 mg PO DAILY potassium chloride 10 MEQ capsule, extended release 10 meq PO BID finasteride 5 MG tablet 5 mg PO DAILY clopidogrel 75 mg tablet 75 mg PO DAILY Entresto 24-26 mg tablet 1 tab PO BID hydralazine 25 mg tablet 25 mg PO TID tamsulosin 0.4 MG capsule 0.4 mg PO DAILY omeprazole 20 MG capsule,delayed release(DR/EC) 20 mg PO DAILY allopurinol 100 tablet 100 mg PO BID Patient Comments: isosorbide mononitrate 30 mg tablet extended release 24 hr 45 mg PO DAILY insulin glargine [Lantus Solostar U-100 Insulin] 100 unit/mL (3 mL) insulin pen 56 unit SQ HS Eliquis 2.5 mg tablet 2.5 mg PO BID Referrals Follow up/Referrals: Kervin Rodríguez MD [Primary Care Provider] - See instructions Clinical Impressions Clinical Impression: Generalized weakness, AMY (acute kidney injury), CHF (congestive heart failure) Discharge ED Provider: Ulises Foster General Adult HPI General Chief complaint: Weakness Stated complaint: Fall Time Seen by Provider: 11/06/22 09:51 History of Present Illness HPI narrative: This is an 82-year-old male with history of hypertension, hyperlipidemia, CAD status post stenting and CABG currently on Eliquis for atrial fibrillation, COPD not currently on home oxygen presenting with chest pain. Patient states that he fell 3 days prior to arrival and has been having lower spine pain and difficulty ambulating at home secondary to weakness, since that time. States that his son was helping him stand up 1 day prior to arrival on 11/05 when he had a popping, sensation in the left side of his lower chest. Now he is intermittently having severe, left lower chest wall shooting pains that do not radiate. No shortness of breath, nausea, vomiting, diaphoresis, difficulty lying flat, fevers or chills, worsening cough, or any other concerns. Patient states that he has been feeling progressively weak. Lives at home alone and has been unable to care for himself, so son has to check in to make sure ADLs are taken care of. States something is being figured out, by his son in terms of assisted living. Related Data Home Medications Medication Instructions Recorded Confirmed omeprazole 20 mg capsule,delayed 20 mg PO DAILY Acid Reflux 05/03/17 11/06/22 release tamsulosin 0.4 mg capsule 0.4 mg PO DAILY Prostate 05/03/17 11/06/22 allopurinol 100 mg tablet 100 mg PO BID GOUT 05/06/17 11/06/22 nitroglycerin 0.4 mg sublingual 0.4 mg sublingual Q5MINP PRN Chest 05/27/17 11/01/22 tablet (Nitrostat) Pain rosuvastatin 5 mg tablet 5 mg PO DAILY Cholesterol 07/27/18 11/06/22 finasteride 5 mg tablet 5 mg PO DAILY Prostate 09/28/18 11/06/22 potassium chloride 10 mEq 10 meq PO BID Supplement 09/28/18 11/06/22 capsule,extended release bisoprolol fumarate 5 mg tablet 5 mg PO DAILY Heart Rhythm 03/22/19 11/06/22 gabapentin 400 mg capsule 400 mg PO HS pain 03/22/19 11/06/22 blood sugar diagnostic (Accu-Chek #10 ea 09/30/22 11/01/22 Terrie Plus test strips) pen needle, diabetic 32 gauge x #1,200 ea
--- NOTE | 2022-11-06 10:03 | PC.NURSE ---
steri stripes placed over pain pump incision.
--- NOTE | 2022-11-06 10:06 | PC.NURSE ---
rounded on pt, call light in reach. pt reports he was supposed to have an appt at [address] kendall to have stitches removed and wound evaluated. Notified dr. kendall's office spoke with [facility], states if pt is d/c have him come to their office after d/c to see dr. kendall and if admitted let her know and she will have dr. kendall see pt on floor.
[2022-11-06 10:07] LABS: Basophils % 0.2 % (0.1-2.0); Eosinophils # 0.4 K/mm3 (0.0-0.4); Eosinophils % 3.1 % (0.1-12.0); Hematocrit 30.4 % (42.0-52.0); Hemoglobin 9.6 g/dL (14.1-18.0); Lymphocytes # 1.2 K/mm3 (0.7-4.5); Lymphocytes % 9.8 % (10-50); Mean Corpuscular HGB Conc 31.5 g/dL (31.8-35.4); Mean Corpuscular Hemoglobin 28.8 pg (27.0-31.2); Mean Corpuscular Volume 91.5 fl (80-94); Mean Platelet Volume 8.6 fl (7.4-10.4); Monocytes # 0.8 K/mm3 (0.1-1.0); Neutrophils # 10.1 K/mm3 (1.8-7.8); Neutrophils % 80.9 % (37.0-80.0); Platelet Count 190 K/mm3 (142-424); Red Blood Count 3.32 M/mm3 (4.60-6.20); Red Cell Distribution Width 18.4 % (11.5-17.5); White Blood Count 12.5 K/mm3 (4.8-10.8)
[2022-11-06 10:14] LABS: Alanine Aminotransferase 18 U/L (12-78); Albumin Level 2.9 g/dl (3.5-5.0); Albumin/Globulin Ratio 0.9 (1.1-1.8); Alkaline Phosphatase 174 U/L (38-126); Anion Gap 14.5 mEq/L (5-15); Aspartate Amino Transferase 31 U/L (17-59); Bilirubin,Total 1.3 mg/dl (0.2-1.3); Calcium 8.5 mg/dl (8.4-10.2); Carbon Dioxide 24 mmol/L (22.0-30.0); Chloride 99 mmol/L (98-107); Creatinine Clearance Estimated 28 mL/min (50-200); Estimated Glomerular Filt Rate 24 ml/min (>60); GFR (African American) 29 ML/MIN (>60); Globulin 3.2 g/dL (1.3-3.2); Glucose 214 mg/dl (74-100); Potassium 4.5 mmoL/L (3.5-5.1); Sodium 133 mmol/L (136-145); Total Protein,Serum 6.1 g/dl (6.3-8.2)
--- NOTE | 2022-11-06 10:17 | PC.NURSE ---
1016 CRITICAL BUN AND CREAT RECEIVED FROM STUART IN LAB. PT NAME AND R/V DR ANGEL NOTIFIED
[2022-11-06 10:18] LABS: Blood Urea Nitrogen 81 mg/dl (9-20)
[2022-11-06 10:24] LABS: NT Pro Brain Natriuretic Pep. 9810 pg/mL (0-450)
[2022-11-06 10:26] LABS: Troponin I 0.04 ng/ml (0.00-0.034)
--- NOTE | 2022-11-06 12:28 | PC.NURSE ---
pt bladder scan revealed >767. coude cath placed with 10cc balloon. urine returned and sent to lab.
[2022-11-06 12:33] LABS: Microscopic, Urine URINE MICROSCOPIC (MICROSCOPIC)
--- NOTE | 2022-11-06 13:05 | PC.NURSE ---
Assumed patient care at this time
[2022-11-06 13:28] LABS: Appearance,Urine Clear (Clear); Bilirubin,Urine Negative (Negative); Blood, Urine Negative (Negative); Color,Urine Yellow (Yellow); Glucose,Urine (UA) Negative (Negative); Ketones,Urine Negative (Negative); Leukocyte Esterase,Urine Negative (Negative); Nitrate,Urine Negative (Negative); Protein,Urine Trace (Negative); Urobilinogen,Urine 0.2 EU/dl (0.2)
--- NOTE | 2022-11-06 13:41 | PC.NURSE ---
waiting application software developer back from dr. ovalle, left message at his office
[2022-11-06 13:42] LABS: Hyaline Casts,Urine Occasional #/lpf (0); Squamous Epithelial Cell,Urine Occasional #/hpf (0-5); WBC,Urine Occasional #/hpf (0-3)
--- NOTE | 2022-11-06 13:44 | PC.NURSE ---
MARTY Foster speaking with Dr. Rodríguez
[2022-11-06 13:46] LABS: Troponin I 0.03 ng/ml (0.00-0.034)
--- NOTE | 2022-11-06 13:50 | PC.NURSE ---
notified care management of admission, spoke with tita
--- NOTE | 2022-11-06 14:19 | PC.NURSE ---
contacted household cook to check on status of bed assignment. States pt is going to be assigned to room 214, that room is having to be cleaned. she will give admission info to registration staff when room is ready
--- NOTE | 2022-11-06 14:42 | HMH.PHAINT1 ---
Pharmacy Intervention Comments: Medication history complete, medications verified with discharge medication list from 11/02. - Minerva Rivera, PharmD Candidate 2023
--- NOTE | 2022-11-06 15:47 | PC.NURSE ---
arrived by stretcher from ED
[2022-11-06 16:29] LABS: Troponin I 0.03 ng/ml (0.00-0.034)
--- NOTE | 2022-11-06 17:03 | EXP.HP ---
History of Present Illness *Admission Date: 11/06/22 *Reason for visit:: Weakness and fatigue *History of present illness: 82-year-old male with significant medical history of cardiomegaly, CHF, cardiovascular disease. Over the past couple weeks has had a rough time, he is had biopsies of significant lesion on his neck and arm, he is on blood thinners and after these biopsies had significant amounts of bleeding and chest pain, and was brought to the hospital. He was admitted overnight and did well and was discharged home. However since that time has become increasingly weak. He has been unable to take care of himself and his son brought him to the ER. In the ER labs are fairly stable. Chest x-ray was stable, no fractures. 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 [facility] Disclaimer: The information contained in this section may have been updated after the patient was seen, as this information can be updated by other users. Medical History (Updated 11/06/22 @ 17:07 by Kervin Rodríguez MD) Abnormal result of cardiovascular function study Acute HFrEF (heart failure with reduced ejection fraction) Biventricular implantable cardioverter-defibrillator in situ Fatigue Hyperglycemia Systolic heart failure Typical angina Unstable angina Surgical History (Updated 11/04/22 @ 00:01 by Cheri Perez) H/O heart artery stent History of cataract surgery History of cholecystectomy History of colonoscopy Hx of CABG Family History Other Family history of cancer Family history of hyperlipidemia Family history of hypertension Family history of myocardial infarction Social History (Updated 11/01/22 @ 16:58 by Grant Jones RN) Smoking Status: Never smoker second hand exposure: No alcohol intake: never substance use type: denies use current occupational status: retired Travel in the last 8 weeks: None housing: house current occupational exposures/hazards: No caffeine: Yes Meds Home Medications and Allergies Home Medications Medication Instructions Recorded Confirmed Type omeprazole 20 mg capsule,delayed 20 mg PO DAILY Acid Reflux 05/03/17 11/06/22 History release tamsulosin 0.4 mg capsule 0.4 mg PO DAILY Prostate 05/03/17 11/06/22 History allopurinol 100 mg tablet 100 mg PO BID GOUT 05/06/17 11/06/22 History nitroglycerin 0.4 mg sublingual 0.4 mg sublingual Q5MINP PRN Chest 05/27/17 11/06/22 History tablet (Nitrostat) Pain rosuvastatin 5 mg tablet 5 mg PO DAILY Cholesterol 07/27/18 11/06/22 History finasteride 5 mg tablet 5 mg PO DAILY Prostate 09/28/18 11/06/22 History potassium chloride 10 mEq 10 meq PO BID Supplement 09/28/18 11/06/22 History capsule,extended release furosemide 80 mg tablet 80 mg PO DAILY Fluid #30 tabs 12/23/18 11/06/22 Rx bisoprolol fumarate 5 mg tablet 5 mg PO DAILY High Blood Pressure 03/22/19 11/06/22 History gabapentin 400 mg capsule 400 mg PO HS pain 03/22/19 11/06/22 History blood sugar diagnostic (Accu-Chek #10 ea 09/30/22 11/01/22 History Terrie Plus test strips) pen needle, diabetic 32 gauge x #1,200 ea 09/30/22 11/01/22 History (Pen Needle) insulin glargine 100 unit/mL (3 56 unit SQ HS Diabetes 10/31/22 11/06/22 History mL) subcutaneous pen (Lantus Solostar U-100 Insulin) isosorbide mononitrate 30 mg 45 mg PO DAILY High Blood Pressure 10/31/22 11/06/22 History tablet,extended release 24 hr hydralazine 25 mg tablet 25 mg PO TID High Blood Pressure 11/06/22 11/06/22 History New Prescriptions to Start Prescriptions: Allergies Allergy/AdvReac Type Severity Reaction Status Date / Time labetalol [LABETALOL] Allergy Unknown MAKES ME Verified 10/31/22 08:21 CRAZY Exam Data for Last 24 hours Vital signs and Labs for Last 24 Hours:
--- NOTE | 2022-11-06 17:14 | PC.WOUNDNOTE ---
RIGHT SIDE OF NECK, STITCHES IN PLACE RIGHT ARM. STITCHES IN PLACE, PACKED. REDNESS, SEROSANG AND PURULENT DRAINAGE NOTED. NEW DRESSING APPLIED.
--- NOTE | 2022-11-06 17:25 | PC.NURSE ---
A&OX4. TOLERATING RA WELL. PT HAS HAD NO NEEDS OR C/O NOTED SINCE ARRIVAL TO FLOOR. F/C PRESENT DRAINING DARK YELLOW URINE. X2 ASSIST IN BED, BOTTOM IS SLIGHTLY RED. SKIN CANCER REMOVAL SITES TO R NECK AND ARM, NEW DRESSING APPLIED TO ARM. PICTURES ON CHART. SON AT BEDSIDE. VSS .
[2022-11-07 04:00] VITALS: BP 105/50; PULSE 116; RESP 18; TEMP 37.4; O2SAT 94; BMI 33.3
[2022-11-07 08:00] VITALS: BP 120/61; PULSE 72; RESP 16; TEMP 36.4; O2SAT 92
--- NOTE | 2022-11-07 08:08 | SW/DCPLANNER ---
Addendum entered by Nusrat Clifton 11/08/22 08:40: Per Keshav franca [facility] is approved for SNF level of care. Patient will discharge today: I will update patient and his son. Addendum entered by Nusratkervin Clifton 11/07/22 14:05: Keshav franca [facility] stated that she can accept this patient and precert will be started today. I will update MD, patient and son. Addendum entered by Nusrat Granada 11/07/22 08:32: I spoke with son this AM regarding discharge plans. Son stated that they have been discussing [facility] and would prefer his information to be faxed there. [facility] stated they do have male beds available. Patient information has been faxed. Dr Rodríguez stated that patient is medically stable for discharge once facility is able to accept him. I will continue to follow up with patient, son and MD. Original Note: I spoke with this patient regarding discharge plans once medically stable for discharge. PT/OT is ordered for this AM. Patient is agreeable to placement if needed at time of discharge. Patient asked that I call and discuss this with his son regarding placement. Patient stated that him and his son have been discussing [facility]. I will follow up with son this AM.
--- NOTE | 2022-11-07 08:21 | EXP.ACUTE.PN ---
Subjective *Date: 11/07/22 *Time: 08:21 Interval history: Patient rested well, feels better, nurses note that he is having a scant amount of nasal bleeding. He ate a little bit of breakfast, has not yet had PT or OT evaluations. Medical Exam Vital signs and Labs for Last 24 Hours: Vital Signs Temp Pulse Pulse Resp BP BP Pulse Ox 11/07/22 04:00 99.4 F 116 H 18 105/50 L 94 L 11/07/22 07:00 11/07/22 05:00 11/07/22 03:00 11/07/22 01:00 11/06/22 23:00 11/06/22 21:00 11/06/22 20:00 11/06/22 20:00 98.2 F 90 18 107/51 L 98 11/06/22 18:45 11/06/22 16:47 11/06/22 16:14 97.8 F 78 16 107/53 L 97 11/06/22 15:17 97.9 F 80 16 111/54 L 11/06/22 14:00 79 107/46 L 96 11/06/22 13:30 83 105/52 L 99 11/06/22 13:00 91 H 111/48 L 96 11/06/22 12:30 74 108/50 L 96 11/06/22 12:00 86 103/51 L 98 11/06/22 11:30 83 104/54 L 96 11/06/22 11:01 83 91/56 L 96 11/06/22 10:30 87 97/50 L 99 11/06/22 10:00 84 16 110/51 L 98 11/06/22 09:39 72 18 103/50 L 98 11/06/22 09:45 97.9 F 86 19 96/53 L 100 O2 Del Method O2 Flow Rate 11/07/22 04:00 Room Air 11/07/22 07:00 Room Air 11/07/22 05:00 Room Air 11/07/22 03:00 Room Air 11/07/22 01:00 Room Air 11/06/22 23:00 Room Air 11/06/22 21:00 Room Air 11/06/22 20:00 Room Air 11/06/22 20:00 Room Air 11/06/22 18:45 Room Air 11/06/22 16:47 Room Air 11/06/22 16:14 Room Air 11/06/22 15:17 Room Air 11/06/22 14:00 11/06/22 13:30 11/06/22 13:00 11/06/22 12:30 11/06/22 12:00 11/06/22 11:30 11/06/22 11:01 11/06/22 10:30 Room Air 11/06/22 10:00 11/06/22 09:39 11/06/22 09:45 Nasal Cannula 2 Intake and Output 11/06/22 11/07/22 11/07/22 19:59 03:59 11:59 Intake Total 270 / 839 569 / 839 Output Total 1200 / 1900 700 / 1900 Balance -930 / -1061 569 / -1061 -700 / -1061 Intake: Intake, Oral Amount 270 / 270 Intake, Other Amount 569 / 569 Output: Output, Urine Amount 1200 / 1900 700 / 1900 Other: Weight 192 lb 9 oz 200 lb Patient Weight 11/07/22 11:59 Weight 200 lb Laboratory Results - last 24 hr 11/06/22 09:43: WBC 12.5 H, RBC 3.32 L, Hgb 9.6 L, Hct 30.4 L, MCV 91.5, MCH 28.8, MCHC 31.5 L, RDW 18.4 H, Plt Count 190, MPV 8.6, Neut % (Auto) 80.9 H, Lymph % (Auto) 9.8 L, Bucks % (Auto) 6.0, Eos % (Auto) 3.1, Baso % (Auto) 0.2, Neut # (Auto) 10.1 H, Lymph # (Auto) 1.2, Bucks # (Auto) 0.8, Eos # (Auto) 0.4, Baso # (Auto) 0.0, Sodium 133 L, Potassium 4.5, Chloride 99, Carbon Dioxide 24, Anion Gap 14.5, BUN 81 H, Creatinine 2.60 H, Estimated Creat Clear 28, Estimated GFR 24 L, Est GFR ( Amer) 29 L, Glucose 214 H, Calcium 8.5, Total Bilirubin 1.3, AST 31, ALT 18, Alkaline Phosphatase 174 H, Troponin I 0.04 H, NT-Pro-B Natriuret Pep 9810 H, Total Protein 6.1 L, Albumin 2.9 L, Globulin 3.2, Albumin/Globulin Ratio 0.9 L 11/06/22 12:24: Urine Color Yellow, Urine Appearance Clear, Urine pH 5.0, Ur Specific [place] 1.010, Urine Protein Trace, Urine Glucose (UA) Negative, Urine Ketones Negative, Urine Blood Negative, Urine Nitrate Negative, Urine Bilirubin Negative, Urine Urobilinogen 0.2, Ur Leukocyte Esterase Negative, Urine RBC None, Urine WBC Occasional, Ur Squamous Epith Cells Occasional, Urine Bacteria None, Hyaline Casts Occasional 11/06/22 12:59: Troponin I 0.03 11/06/22 16:00: Troponin I 0.03 I & O for Labs for Last 24 Hours: Intake & Output 11/04/22 11/05/22 11/06/22 11/07/22 11:59 11:59 11:59 11:59 Intake Total 839 / 839 Output Total 1900 / 1900 Balance -1061 / -1061 Weight 200 lb 200 lb Comment:: Pleasant, talkative. Right-sided neck wound is healing very nicely. Right forearm wound is bandaged, little bit of scant drainage but no evidence of infection. Sutures and Steri-Strips look good. Heart rate regular. Previously
--- NOTE | 2022-11-07 09:43 | HMH.PTEV ---
Physical Therapy Evaluation Rehab PT IP Evaluation Start: 11/06/22 13:56 Freq: ONCE Status: Active Protocol: Document 11/07/22 09:33 FLAQUITO (Rec: 11/07/22 09:43 FLAQUITO [id number]) Subjective/History History History Patient is an 82 year old male admitted to [facility] 11/06/22 secondary to generalized weakness and fatigue. He was most recently diagnosed with basal and squamous cell carcinoma. Patient currently lives at home alone. He requires assistance from son with all ADL's/IADL's. Previously minimally amubulatory for short distances requiring a RW. PMH include hx of CHF and cardiomegaly. Subjective Subjective I've just felt awful and weak for about the past 2 weeks. Rehab PT IP Eval Objective Appearance Patient Behavior Cooperative,Anxious Patient Orientation Person,Place,Birthday Difficulty following instructions none Speech Pattern Clear,Appropriate Ambulation Patient Able to Ambulate No Balance Ability to Arise Unable Sitting Balance Leans or slides in chair Standing Balance Unsteady Dynamic Sitting Balance Ability Good Dynamic Standing Balance Ability Poor Transfers Bed Transfer Ability Moderate x 2 (50% assist) Sit to Stand Bed Transfer Ability Moderate x 2 (50% assist) ROM All Extremities PT ROM Status WFL MMT All Extremities PT MMT WFL Rehab PT IP prob,goals,plan Problems Date of Evaluation: 11/07/22 PT IP Problems Bed Mobility,Transfers,Gait, Balance,Self care,Safety Rehab Potential Rehab Potential Fair Plan PT Intervention Plan Bed Mobility,Transfers,Gait, Balance,Self care,Safety, Therapeutic Exercise PT Plan Frequency BID Duration LOS Discharge Goals Bed Transfer Ability Minimal x 2 (25% assist) Sit to Stand Chair Transfer Ability Minimal x 2 (25% assist) Ambulation Assistive Device Rolling Walker Ambulation Distance (feet) 20 Discharge Plan PT Discharge Plan PT suggests that patient would benefit from discharge to SNF for further rehab once found
--- NOTE | 2022-11-07 10:30 | PC.NURSE ---
Per MD Rodríguez. Keep F/C. Pt will DC with F/C in place.
--- NOTE | 2022-11-07 10:57 | HMH.OTEV ---
OT Inpatient Evaluation Rehab OT IP Evaluation Start: 11/06/22 13:56 Freq: ONCE Status: Active Protocol: Document 11/07/22 10:53 [facility] (Rec: 11/07/22 10:57 [facility] [id number]) Rehab OT IP Assessment Subjective History Pt oriented x 3 on arrival. Pt agreeable to engage in therapy evaluation. Patient is an 82 year old male admitted to [facility] 11/06/22 secondary to generalized weakness and fatigue. He was most recently diagnosed with basal and squamous cell carcinoma. Patient currently lives at home alone. He requires assistance from son with all ADL's/IADL's. However, pt claims up until 2 weeks ago he was able to complete ADLs and IADLs independently. Previously minimally amubulatory for short distances requiring a RW . PMH include hx of CHF and cardiomegaly. Subjective I can't do anything now. Objective Patient Orientation Person,Place,Birthday Upper Extremity Gross ROM WFL Bed Mobility bed mobility-scooting,bed mobility - supine/sit,bed mobility - rolling Assist Level Moderate x 2 (50% assist) Transfer Training Sit/Stand Transfer Assist Level Moderate x 2 (50% assist) Rehab OT IP prob,goals,plan Problems Date of Evaluation: 11/07/22 OT IP Problems Bed Mobility,Transfers,Balance ,Self care,Safety Rehab Potential Rehab Potential Good Equipment Needs Assistive Devices Rolling / Wheeled Walker Plan OT intervention Plan Bed Mobility,Transfers,Balance ,Self care,Safety,Therapeutic Exercise OT Plan Frequency BID Duration LOS Discharge Goals Bed Mobility Ability Assistance x1 Sit to Stand Chair Transfer Ability Moderate x 1 (50% assist) Chair Transfer Ability Moderate x 1 (50% assist) Chair Transfer Technique Sit to/from Ambulatory Chair Transfer Assistive Devices Rolling Walker Feeding Ability Assist with Tray Set Up Lower Body Dressing Ability Assistance X1 Upper Body Dressing Ability Ass
[2022-11-07 11:44] LABS: POC Glucose,Bedside 277 (70-110)
[2022-11-07 12:01] LABS: Prealbumin 5 mg/dL (9-32)
[2022-11-07 12:19] VITALS: BMI 33.3
--- NOTE | 2022-11-07 12:46 | PC.NURSE ---
DSG to pt's RUE changed due. Purulent drainage noted.
--- NOTE | 2022-11-07 12:58 | PC.NURSE ---
Rounded on patient. He denies any questions or concerns at this time. Bed is locked and in the lowest position, call light is within reach.
[2022-11-07 13:40] VITALS: BP 98/50
[2022-11-07 16:00] VITALS: BP 95/55; PULSE 98; RESP 18; TEMP 36.8; O2SAT 96
[2022-11-07 16:58] LABS: POC Glucose,Bedside 296 (70-110)
--- NOTE | 2022-11-07 18:40 | PC.NURSE ---
bp soft 90's/50's, no c/o verbalized, pt reports hes not had a bm in 3-4 days, order given for miralax daily, pt refused first dose, pt not eating well, hydralazine dose held r/t low bp
[2022-11-07 20:00] VITALS: BP 98/48; PULSE 80; RESP 18; TEMP 36.8; O2SAT 97
[2022-11-07 20:30] LABS: POC Glucose,Bedside 233 (70-110)
[2022-11-08 04:00] VITALS: BP 123/54; PULSE 84; RESP 18; TEMP 36.9; O2SAT 97; BMI 33.3
--- NOTE | 2022-11-08 04:49 | PC.NURSE ---
Patient has had a good night. Has rested most of the night. Remains with the orr and will discharge with the orr
[2022-11-08 05:46] LABS: POC Glucose,Bedside 230 (70-110)
[2022-11-08 06:02] LABS: Basophils % 0.4 % (0.1-2.0); Eosinophils # 0.3 K/mm3 (0.0-0.4); Eosinophils % 3.3 % (0.1-12.0); Hemoglobin 9.6 g/dL (14.1-18.0); Lymphocytes # 1.3 K/mm3 (0.7-4.5); Lymphocytes % 14.2 % (10-50); Mean Corpuscular Hemoglobin 28.6 pg (27.0-31.2); Mean Corpuscular Volume 92.1 fl (80-94); Mean Platelet Volume 8.1 fl (7.4-10.4); Monocytes # 0.9 K/mm3 (0.1-1.0); Monocytes % 9.6 % (1.7-9.3); Neutrophils # 6.6 K/mm3 (1.8-7.8); Neutrophils % 72.5 % (37.0-80.0); Platelet Count 187 K/mm3 (142-424); Red Blood Count 3.36 M/mm3 (4.60-6.20); Red Cell Distribution Width 18.4 % (11.5-17.5); White Blood Count 9.1 K/mm3 (4.8-10.8)
[2022-11-08 06:23] LABS: Anion Gap 16.5 mEq/L (5-15); Blood Urea Nitrogen 79 mg/dl (9-20); Calcium 8.4 mg/dl (8.4-10.2); Carbon Dioxide 20 mmol/L (22.0-30.0); Chloride 101 mmol/L (98-107); Creatinine Clearance Estimated 32 mL/min (50-200); Estimated Glomerular Filt Rate 27 ml/min (>60); GFR (African American) 33 ML/MIN (>60); Glucose 206 mg/dl (74-100); Potassium 4.5 mmoL/L (3.5-5.1); Sodium 133 mmol/L (136-145)
--- NOTE | 2022-11-08 08:12 | EXP.DC.SUM ---
General Admission date:: 11/06/22 Discharge date: 11/08/22 HPI HPI HPI: 82-year-old male with significant medical history of cardiomegaly, CHF, cardiovascular disease. Over the past couple weeks has had a rough time, he is had biopsies of significant lesion on his neck and arm, he is on blood thinners and after these biopsies had significant amounts of bleeding and chest pain, and was brought to the hospital. He was admitted overnight and did well and was discharged home. However since that time has become increasingly weak. He has been unable to take care of himself and his son brought him to the ER. In the ER labs are fairly stable. Chest x-ray was stable, no fractures. 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 Hospital Course Hospital Course Hospital Course: Patient was admitted. Given IV fluids. Creatinine stabilized and improved and went down to almost baseline this morning. Hemoglobin remains slightly low but also stabilized and actually improved to 9.6 g. Patient was globally weak, was found to have significant urinary retention a Chavez catheter was placed. He had significant urinary retention noted on admission his Chavez catheter was maintained. PT and OT evaluated patient. Recommended skilled care. A bed was found for him at the [facility] will be going there today. I will follow him on my rounds next Friday. Please note that at [facility] he will need the following orders. 1. Medications as noted in the discharge summary list. 2. PT/OT/dietary consultation for global weakness, and poor nutritional status at home. 3. Daily dressing changes of his right arm wound and right neck wound. 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 5. He will need a CBC and a BMP on 11/12/2022. 6. Please note that he still requires a Chavez catheter because of urinary retention. If the [facility] could start bladder training with hopeful discontinuation of his catheter in the next 4 to 5 days that would be great. Exam Data for Last 24 hours Vital signs and Labs for Last 24 Hours: Temp Pulse Resp BP Pulse Ox O2 Del Method O2 Flow Rate 98.4 F 84 18 123/54 L 97 Room Air 2 11/08/22 04:00 11/08/22 04:00 11/08/22 04:00 11/08/22 04:00 11/08/22 04:00 11/08/22 06:43 11/06/22 09:45 Laboratory Results - last 24 hr 11/06/22 09:45: Prealbumin 5 L 11/07/22 11:33: POC Glucose 277 H 11/07/22 16:36: POC Glucose 296 H 11/07/22 20:23: POC Glucose 233 H 11/08/22 05:36: WBC 9.1 D, RBC 3.36 L, Hgb 9.6 L, Hct 31.0 L, MCV 92.1, MCH 28.6, MCHC 31.0 L, RDW 18.4 H, Plt Count 187, MPV 8.1, Neut % (Auto) 72.5, Lymph % (Auto) 14.2, Snyder % (Auto) 9.6 H, Eos % (Auto) 3.3, Baso % (Auto) 0.4, Neut # (Auto) 6.6, Lymph # (Auto) 1.3, Snyder # (Auto) 0.9, Eos # (Auto) 0.3, Baso # (Auto) 0.0, Sodium 133 L, Potassium 4.5, Chloride 101, Carbon Dioxide 20 L, Anion Gap 16.5 H, BUN 79 H, Creatinine 2.30 H, Estimated Creat Clear 32, Estimated GFR 27 L, Est GFR ( Amer) 33 L, Glucose 206 H, POC Glucose 230 H, Calcium 8.4 I & O for Last 24 hours: Intake & Output 11/05/22 11/06/22 11/07/22 11/08/22 11:59 11:59 11:59 11:59 Intake Total 1076 / 1076 2287 / 2287 Output Total 1900 / 1900 700 / 700 Balance -824 / -824 1587 / 1587 Weight 200 lb 200 lb 200 lb 1 oz Constitutional Constitutional: no acute distress *Routine Neck Exam Comments: Wound on right neck is bandaged, not bleeding. Stitches look in good position *Routine Respiratory Exam Respiratory: Present CTA bilaterally and symmetric chest movement *Routine Cardiovascular Exam Cardiovascular: Present Normal S1 and Normal S2 Comments: A-fib *Routine Abdominal Exam Abdominal: Present soft and nor
[2022-11-08 08:14] VITALS: BP 107/65; PULSE 89; RESP 18; TEMP 36.9; O2SAT 92
--- NOTE | 2022-11-08 09:03 | CA_ITS ---
APPROVED REPORT EXAM: Comprehensive 2D, Doppler, and color-flow Echocardiogram [employer] Engineer: Radha Coffey RT(R) Ht: 5 ft 5 in Wt: 192lbs BSA: 1.94 BP: 108/50 mmHg Indications: heart failure, edema, HTN, fatigue, hyperlipidemia, AICD, CAD, AFIB, CM 2D Dimensions LVOT 2.02 cm (M/F) 1.5-2.5 LA Volume 81.30 mL LA Volume Index 41.69 mL/m2 (M/F) 16-34 M-Mode Dimensions RVDd 3.11 cm (0.9-2.6) LA Diam 5.45 cm (1.9-4.0) LVDd 6.22 cm (3.5-5.7) Ao Diam 2.74 cm (2.0-3.7) LVDs 5.84 cm (3.5-5.7) IVSd 0.80 cm (0.6-1.1) PWd 0.45 cm (0.6-1.1) EF (Teich) 13.40% FS 6.10% EDV (Teich) 195.40 mL ESV (Teich) 169.20 mL Aortic Valve LVOT Max 93.00 (70-110 cm/s) LVOT VTI 18.18 cm AoV Peak Jerman. 114.00 (50-130 cm/s) AO Peak GR. 5.20 mmHg AO Mean GR. 2.60 (<5 mmHg) AO VTI 21.30 (18-25 cm) RISHI (VTI) 2.74 (2.5-4.5 cm2) Tricuspid Valve TR P. Velocity 324.00 cm/s RAP Estimate 15.00 mmHg RVSP 56.90 mmHg Left Ventricle Left ventricle is moderately dilated. Left ventricular systolic function is severely decreased. There is normal left ventricular wall thickness. There is severe global hypokinesis present. Diastolic function is indeterminate due to atrial fibrillation. LVEF is 20% Right Ventricle Right ventricle is mild to moderately dilated. Right ventricle is mildly hypokinetic. A device lead is noted in the right ventricle. Atria Left atrium is mildly dilated. Right atrium is mildly dilated. There is no Doppler evidence of interatrial shunt. Aortic Valve The aortic valve is mildly thickened. There is no aortic valvular stenosis. Mild aortic regurgitation. Mitral Valve There is mild mitral annular calcification (MAC). The mitral valve leaflets are mildly thickened. No evidence of mitral valve stenosis. Mild mitral regurgitation. Tricuspid Valve The tricuspid valve leaflets are thin and pliable. Mild tricuspid regurgitation. RVSP is 55-60 mmHg. Pulmonic Valve The pulmonary valve is normal in structure. Trace pulmonic regurgitation. Great Vessels The aortic root is normal in size. The ascending aorta is not well visualized. The IVC is plethoric. The IVC collapses < 50% with respirophasic variation. Pericardium There is no pericardial effusion. Other Information Study Quality: Fair Conclusion Moderately dilated LV with severely reduced LV function (LVEF 20%) Mild to moderate RV dilation with mild reduction in RV function Mild MR, TR, and AI Elevated RVSP 55-60 mmHg. Compared to prior study from 2021, the LVEF and severity of valvular regurgitation appear unchanged. The RVSP is now further elevated. Electronically signed by : Angela Sinha, 11/11/2022 15:16:51
--- NOTE | 2022-11-08 10:41 | [facility].PTWOUND ---
Rehab Inpt Wound Evaluation Rehab IP Wound Evaluation Start: 11/07/22 10:23 Freq: ONCE Status: Active Protocol: Document 11/08/22 10:35 EFREM (Rec: 11/08/22 10:41 PHOMARKIE [id number]) Rehab PT Wound Assessment Subjective Subjective 82 yowm adm to [facility] with AMY. He recently had biopsy performed on R forearm mass which was positive for basal cell carcinoma. Sutures remain in place at this time. Pt reports pain and tenderness in the alysa-wound area of his R forearm wound. Significant amts of purulent drainge able to be expressed from R forearm wound this am. Wound Right Posterior Forearm Wound Type Incision Is This a Chronic Wound Yes Wound Length (cm) 5.4 Wound Width (cm) 2.4 Wound Depth (cm) 0.8 Wound Margins Description Well Defined Surrounding Tissue Appearance [place] Wound Drainage Description Purulent Drainage Amount Large Wound Topical Solution/Irrigant Saline Irrigant Primary Dressing Composite Wound Secondary Dressing Type Gauze Roll/Wrap Wound Debridement Amount of Tissue None Removed Dressing Change Patient Tolerance Tolerated Well Plan/Recommendation Comment Unable to visualize wound bed due to sutures. Wound cleansed and re-dressed as above. Dreesing changes every 1-2 days as needed at facility after d/c. Eval Complexity Eval Charge Codes 48383 - High Complexity PHYSICIAN CERTIFICATION: I certify the specified therapy services for Franc Jara are required, authorized, and reviewed every 30 days.
[2022-11-08 11:23] LABS: POC Glucose,Bedside 207 (70-110)
--- NOTE | 2022-11-08 12:08 | P.PN_ITS ---
Subjective Narrative: Some purulent drainage noted from right arm incision Exam Data for Last 24 hours Vital signs and Labs for Last 24 Hours: Temp Pulse Resp BP Pulse Ox O2 Del Method O2 Flow Rate 98.5 F 89 18 107/65 L 92 L Room Air 2 11/08/22 08:14 11/08/22 08:14 11/08/22 08:14 11/08/22 08:14 11/08/22 08:14 11/08/22 11:00 11/06/22 09:45 Laboratory Results - last 24 hr 11/07/22 16:36: POC Glucose 296 H 11/07/22 20:23: POC Glucose 233 H 11/08/22 05:36: WBC 9.1 D, RBC 3.36 L, Hgb 9.6 L, Hct 31.0 L, MCV 92.1, MCH 28.6, MCHC 31.0 L, RDW 18.4 H, Plt Count 187, MPV 8.1, Neut % (Auto) 72.5, Lymph % (Auto) 14.2, [place] % (Auto) 9.6 H, Eos % (Auto) 3.3, Baso % (Auto) 0.4, Neut # (Auto) 6.6, Lymph # (Auto) 1.3, [place] # (Auto) 0.9, Eos # (Auto) 0.3, Baso # (Auto) 0.0, Sodium 133 L, Potassium 4.5, Chloride 101, Carbon Dioxide 20 L, Anion Gap 16.5 H, BUN 79 H, Creatinine 2.30 H, Estimated Creat Clear 32, Estimated GFR 27 L, Est GFR ( Amer) 33 L, Glucose 206 H, POC Glucose 230 H, Calcium 8.4 11/08/22 11:10: POC Glucose 207 H I & O for Last 24 hours: Intake & Output 11/06/22 11/07/22 11/08/22 11/09/22 11:59 11:59 11:59 11:59 Intake Total 1076 / 1076 2287 / 2287 Output Total 1900 / 1900 700 / 700 Balance -824 / -824 1587 / 1587 Weight 200 lb 200 lb 200 lb 1 oz Constitutional Constitutional: no acute distress *Routine Neck Exam Comments: Right neck incision without evidence of infection. *Routine Extremities Exam Comments: Right arm incision without spreading cellulitis; however, significant maceration and thin purulent drainage noted Progress Note: A&P Assessment and plan (1) Carcinoma: Problem details: Poorly differentiated carcinoma with mixed features noted on right neck skin lesion biopsy. Metastatic lesion not excluded. 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 All sutures have been removed and the wound has been packed open with dry gauze.
--- NOTE | 2022-11-08 12:42 | PC.NURSE ---
Pt was discharged to [facility]. Before discharge came to bedside and removed sutures from the rfa and the sutures from the right side of the neck. rfa incision had purulent drainage noted. left incision opened and packed with dry 4x4. [facility] was called and it was ordered for dressings to be changed daily and pt will be on cefdinir bid for 7 days. Pt will follow up with Dr. Farnsworth this week.
== END 2022-11-08 12:48 ==
LOC: ER 13:54 → 2ND 14:31
PROVIDERS: Admitting Provider Internal Medicine Adolescent Medicine; Emergency Provider Emergency Medicine; PCP Internal Medicine Adolescent Medicine; Visit Provider Internal Medicine Adolescent Medicine
DX: N17.9 Acute kidney failure, unspecified (principal); I50.9 Heart failure, unspecified; C44.42 Squamous cell carcinoma of skin of scalp and neck; R33.9 Retention of urine, unspecified; C80.1 Malignant (primary) neoplasm, unspecified; C44.622 Squamous cell carcinoma of skin of right upper limb, including shoulder; Z79.4 Long term (current) use of insulin; Z95.1 Presence of aortocoronary bypass graft
CPT/HCPCS: 36415; 71250; 72128; 72131; 74176; 80048; 80053; 81001; 82962; 83880; 84134; 84484; 85025; 93005; 93306; 97163; 97166; 99285; G0378

== ENCOUNTER → 2022-12-04 12:03 | Outpatient (CLI) | payer MEDICARE, MEDICAID, SELFPAY ==
[2022-12-04 12:30] LABS: Microscopic, Urine URINE MICROSCOPIC (MICROSCOPIC)
[2022-12-04 12:35] LABS: Appearance,Urine CLOUDY (Clear); Bilirubin,Urine Negative (Negative); Blood, Urine 1+ (Negative); Color,Urine YELLOW (Yellow); Glucose,Urine (UA) 2+ (Negative); Ketones,Urine Negative (Negative); Leukocyte Esterase,Urine 2+ (Negative); Nitrate,Urine POSITIVE (Negative); Protein,Urine TRACE (Negative)
[2022-12-04 12:49] LABS: Bacteria,Urine 3+ /lpf; Mucus,Urine 2+ /lpf; RBC,Urine Occasional #/hpf (0-3); Squamous Epithelial Cell,Urine Occasional #/hpf (0-5); WBC,Urine 50-100 #/hpf (0-3)
== END ==
PROVIDERS: PCP Internal Medicine Adolescent Medicine; Visit Provider Internal Medicine Adolescent Medicine
DX: N39.0 Urinary tract infection, site not specified (principal); R82.90 Unspecified abnormal findings in urine; B96.29 Other Escherichia coli [E. coli] as the cause of diseases classified elsewhere
CPT/HCPCS: 81001; 87086; 87088; 87186